=== PATIENT | female | born 1955 | race Caucasian/White ===

== ENCOUNTER 2016-11-30 10:43 | Observation (INO) | payer MEDICARE ==
[2016-11-30] MEDS ORDERED: SUBLIMAZE 100 MCG/2 ML IV ONE ×2 (11:07→11:44)
[2016-11-30] MEDS ORDERED: NITRO-BID 2% UD PACKETS TOP ONE (11:07)
[2016-11-30] MEDS ORDERED: Zestril 20 MG PO ONE (11:07)
[2016-11-30] MEDS ORDERED: ATARAX 25 MG PO ONE (11:08)
[2016-11-30 11:12] LABS: BASOPHIL % 0.6 % (0.0-0.4); Eosinophil % 3.5 % (0.00-5.0); Granulocytes % 59.2 % (36.0-66.0); Lymphocytes % 31.5 % (24.0-44.0); Mean Cell Volume 76.2 fl (78-100); Mean Platelet Volume 11.3 fl (6-9.5); Monocytes % 5.2 % (0.0-12.0); Platelet Count 278 K/mm3 (150-450); Red Blood Count 4.67 M/mm3 (4.1-5.4); Red Cell Distribution Width 18.4 % (11.5-14.0); White Blood Count 5.4 K/mm3 (4.0-10.5)
[2016-11-30] MEDS ORDERED: NITRO-BID 2% UD PACKETS ONE (11:12)
[2016-11-30] MEDS ORDERED: SUBLIMAZE 100 MCG/2 ML ONE ×2 (11:12→11:46)
[2016-11-30] MEDS ORDERED: ATARAX 25 MG ONE (11:12)
--- NOTE | 2016-11-30 11:17 | ERPHSYRPT ---
- History of Present Illness Time Seen by Provider: 11/30/16 10:45 Source: patient Patient Subjective Stated Complaint: PT STATES THAT HER BP HAS BEEN RUNNING HIGH OFF AND ON X 1 WEEK STATES THAT SHE HAS BEEN HAVING A "THROBBING HEADACHE" STATES SHE HAS ALSO BEEN HAVING SOME CHEST PAIN OFF AND ON FOR THE LAST COUPLE DAYS STATES THAT SEH ISN'T CURRENLTY HAVING THE CHEST PAIN OR SOB SHE JUST "HAS A THROBBING HEADAHE" STATES THATS HE HASN'T TAKEN HER BP TODAY STATES HER MACHINE IS OUT OF BATTERIES WAS SUPPOSE TO SEE DR RABAGO BUT HE HAD TO CANCEL DUE TO EMERGENCY. Triage Nursing Assessment: PT ALERT PINK WARM AND DRY RESP EASY NON LABORED PT AMBUALTED TO ROOM WITHOUT DIFFICULTY. PUPILS ROUND EQUAL AND REACTIVE. Physician History: CC: headache Hx: 61 y/o patient of Dr Rabago/[facility]. She has hx of CAD s/p CABG and HTN. She has been faithfully taking her medications. She reports high blood pressure up to 220/160. She took an extra BP pill. She has headache, throbbing in nature. She has chest tightness like prior heart disease. She had appt this AM which was cancelled by office so came to ER. She takes plavix. No fall or injury. ?UTI symptoms. She has had this headache for 2 weeks. ALL: NSAIDS, PCN Social: Smoker Severity: moderate Allergies/Adverse Reactions: ibuprofen Allergy (Verified 03/28/16 15:32) NSAIDS (Non-Steroidal Anti-Inflamma Allergy (Verified 03/28/16 15:32) Penicillins Allergy (Verified 03/28/16 15:32) Home Medications: Clopidogrel Bisulfate [Plavix] 75 mg PO DAILY 03/28/16 [History] Gabapentin 600 mg PO TID 03/28/16 [History] Hydralazine HCl 10 mg PO DAILY PRN PRN 03/28/16 [History] Lisinopril [Zestril] 20 mg PO DAILY 03/28/16 [History] Meclizine HCl 25 mg [Antivert 25 mg] 25 mg PO TIDPRN PRN 03/28/16 [History ] Metoprolol Succinate [Toprol Xl] 50 mg PO DAILY 03/28/16 [History] Oxycodone HCl 10 mg PO DAILY 03/28/16 [History] PANTOPRAZOLE 40 mg Tablet [Protonix 40MG Tablet] 40 mg PO DAILY 03/28/16 [ History] Tizanidine HCl 4 mg [Zanaflex 4 MG] 4 mg PO TID 03/28/16 [History] Atorvastatin Calcium 40 mg PO DAILY 03/29/16 [History] Gabapentin 300 mg PO TID 03/29/16 [History] Lorazepam 0.5 mg [Ativan 0.5 MG] 0.5 mg PO DAILY 03/29/16 [History] Oxycodone HCl [Oxycontin] 15 mg PO BID 11/30/16 [History] Hx Tetanus, Diphtheria Vaccination/Date Given: Yes Hx Influenza Vaccination/Date Given: Yes Hx Pneumococcal Vaccination/Date Given: Yes Immunizations Up to Date: Yes - Review of Systems Constitutional: Fatigue, Malaise, No Fever, No Chills Eyes: No Symptoms, No Vision Changes Ears, Nose, & Throat: No Symptoms Respiratory: No Cough, No Dyspnea Cardiac: Chest Pain (tightness) Abdominal/Gastrointestinal: No Abdominal Pain, No Nausea, No Vomiting Musculoskeletal: No Injury Skin: No Rash Neurological: Headache, No Focal Weakness, No Parasthesia All Other Systems: Reviewed and Negative - Past Medical History Pertinent Past Medical History: Yes Neurological History: Migraines, TIA ENT History: No Pertinent History Cardiac History: Angina, Coronary Artery Disease, High Cholesterol, Hypertension , Myocardial Infarction ([place]) Respiratory History: COPD Endocrine Medical History: Diabetes Type II Musculoskeletal History: Osteoarthritis, Osteoporosis GI Medical History: GERD Psycho-Social History: Anxiety - Past Surgical History Past Surgical History: Yes Cardiac: CABG, Cardiac Catheterization, Cardiac Stent Musculoskeletal: Joint Replacement, Orthopedic Surgery Female Surgical History: Hysterectomy Other Surgical History: Bilateral SHOULDERS, RIGHT KNEE, BACK - Social History Smoking Status: Current every day smoker How long have you smoked: 40 YEARS Exposure to second hand smoke: Yes Drug Use: none Patient Lives Alone: No - Female History Hx Last Menstrual Period: N/A - Nursing Vital Signs Nursing Vital Signs: Initial Vital Signs Temperature 98.6 F Temperature Source Oral Pulse Rate 76 Respiratory Rate 16 Blood Pressure [] 186/99 Pain Intensity 10 - Physical Exam General Appearance: alert Eye Exam: PERRL/EOMI Ears, Nose, Throat Exam: normal ENT inspection, moist mucous membranes Neck Exam: normal inspection, non-tender, supple Respiratory Exam: normal breath sounds, lungs clear, No respiratory distress Cardiovascular Exam: regular rate/rhythm, No murmur Gastrointestinal/Abdomen Exam: soft, No tenderness, No distention, No mass, No guarding Back Exam: normal inspection Extremity Exam: normal inspection, normal range of motion Neurologic Exam: alert, oriented x 3, cooperative, sensation nml, No motor deficits Skin Exam: warm, dry, No rash SpO2 Interpretation: normal SpO2: 98 Oxygen Delivery: Room Air - Course Nursing assessment & vital signs reviewed: Yes EKG Interpreted by Me: RATE (75), Sinus Rhythm, NORMAL AXIS, NORMAL INTERVALS ( QTc 443), Q-wave (inferior), Non-specific ST Changes - Radiology Exams cxr X-ray Interpretation: Discussed w/ radiologist, Negative - CT Exams head CT Interpretation: No/Intracranial Hemorrhag, Other (old lacunar stroke) Ordered Tests: Active Orders 24 hr Category Date Time Status Facility Maintenance Supervisor STAT Care 11/30/16 11:01 Active Cath for Specimen-Straight STAT Care 11/30/16 11:11 Active EKG-ER Only STAT Care 11/30/16 11:01 Active IV Insertion STAT Care 11/30/16 11:01 Active Pulse Oximetry (ED) STAT Care 11/30/16 11:01 Active CHEST 1 VIEW (PORTABLE) Stat Exams 11/30/16 11:01 Completed HEAD WITHOUT CONTRAST [CT] Stat Exams 11/30/16 11:08 Completed CBC W DIFF Stat Lab 11/30/16 11:00 Completed CMP Stat Lab 11/30/16 11:00 Completed CULTURE,URINE Stat Lab 11/30/16 11:11 Ordered PROTIME WITH INR Stat Lab 11/30/16 11:00 Completed PTT Stat Lab 11/30/16 11:00 Completed TROPONIN Q3H Lab 11/30/16 11:00 Completed TROPONIN Q3H Lab 11/30/16 11:15 Ordered TROPONIN Q3H Lab 11/30/16 14:15 Ordered TROPONIN Q3H Lab 11/30/16 17:15 Ordered TROPONIN Q3H Lab 11/30/16 20:15 Ordered UA Stat Lab 11/30/16 12:00 Completed Medication Summary Discontinued Medications Generic Name Dose Route Start Last Admin Trade Name Freq PRN Reason Stop Dose Admin Fentanyl Citrate 50 mcg 11/30/16 11:07 11/30/16 11:22 Sublimaze 100 Mcg/2 Ml IV 11/30/16 11:08 50 mcg STAT ONE Administration Fentanyl Citrate Confirm 11/30/16 11:12 Sublimaze 100 Mcg/2 Ml Administered 11/30/16 11:13 Dose 100 mcg .ROUTE .STK-MED ONE Fentanyl Citrate 50 mcg 11/30/16 11:44 11/30/16 11:48 Sublimaze 100 Mcg/2 Ml IV 11/30/16 11:45 50 mcg STAT ONE Administration Fentanyl Citrate Confirm 11/30/16 11:46 Sublimaze 100 Mcg/2 Ml Administered 11/30/16 11:47 Dose 100 mcg .ROUTE .STK-MED ONE Hydromorphone HCl 1 mg 11/30/16 12:22 11/30/16 12:35 Hydromorphone 1 Mg/Ml Ampule IV 11/30/16 12:23 1 mg STAT ONE Administration Hydromorphone HCl Confirm 11/30/16 12:33 Hydromorphone 1 Mg/Ml Ampule Administered 11/30/16 12:34 Dose 1 mg .ROUTE .STK-MED ONE Hydroxyzine HCl 50 mg 11/30/16 11:08 11/30/16 11:20 Atarax 25 Mg PO 11/30/16 11:09 50 mg STAT ONE Administration Hydroxyzine HCl Confirm 11/30/16 11:12 Atarax 25 Mg Administered 11/30/16 11:13 Dose 50 mg .ROUTE .STK-MED ONE Lisinopril 20 mg 11/30/16 11:07 11/30/16 11:20 Zestril 20 Mg PO 11/30/16 11:08 20 mg STAT ONE Administration Nitroglycerin 1 gm 11/30/16 11:07 11/30/16 11:21 Nitro-Bid 2% Ud Packets TOP 11/30/16 11:08 1 gm STAT ONE Administration Nitroglycerin Confirm 11/30/16 11:12 Nitro-Bid 2% Ud Packets Administered 11/30/16 11:13 Dose 1 gm .ROUTE .STK-MED ONE Lab/Rad Data: Laboratory Result Diagrams 11/30/16 11:00 11/30/16 11:00 Laboratory Results 11/30/16 11/30/16 11/30/16 Range/Units 12:00 11:00 11:00 WBC (4.0-10.5) K/mm3 RBC (4.1-5.4) M/mm3 Hgb (12.0-16.0) gm/dl Hct (35-47) % MCV (78-100) fl MCH (26-32) pg MCHC (32-36) g/dl RDW (11.5-14.0) % Plt Count (150-450) K/mm3 MPV (6-9.5) fl Gran % (36.0-66.0) % Lymphocytes % (24.0-44.0) % Monocytes % (0.0-12.0) % Eosinophils % (0.00-5.0) % Basophils % (0.0-0.4) % Basophils # (0-0.4) INR 1.07 (0.8-3.0) PTT 30.1 (25.3-37.0) SECONDS Sodium (136-145) mEq/L Potassium (3.5-5.1) mEq/L Chloride (98-107) mEq/L Carbon Dioxide (21-32) mEq/L Anion Gap (5-15) MEQ/L BUN (9-20) mg/dL Creatinine (0.55-1.30) mg/dl Estimated GFR ML/MIN Glucose (70-110) MG/DL Calcium (8.5-10.1) mg/dL Total Bilirubin (0.2-1.0) mg/dL AST (15-37) U/L ALT (12-78) U/L Alkaline Phosphatase (46-116) U/L Troponin I < 0.017 (0.000-0.056) ng/ml Serum Total Protein (6.4-8.2) gm/dL Albumin (3.4-5.0) g/dL Ur Collection Type CATH Urine Color YELLOW (YELLOW) Urine Appearance CLEAR (CLEAR) Urine pH 6.0 (5-6) Ur Specific [place] 1.010 (1.005-1.025) Urine Protein NEGATIVE (Negative) Urine Glucose (UA) NEGATIVE (NEGATIVE) mg/dL Urine Ketones NEGATIVE (NEGATIVE) Urine Nitrite NEGATIVE (NEGATIVE) Urine Bilirubin NEGATIVE (NEGATIVE) Urine Urobilinogen 0.2 (0-1) mg/dL Urine WBC (Auto) NEGATIVE (NEGATIVE) Urine RBC (Auto) NEGATIVE (0-5) Camron/ul Specimen Received 11-30-16 1211 11/30/16 11/30/16 Range/Units 11:00 11:00 WBC 5.4 (4.0-10.5) K/mm3 RBC 4.67 (4.1-5.4) M/mm3 Hgb 10.4 L (12.0-16.0) gm/dl Hct 35.6 (35-47) % MCV 76.2 L (78-100) fl MCH 22.2 L (26-32) pg MCHC 29.2 L (32-36) g/dl RDW 18.4 H (11.5-14.0) % Plt Count 278 (150-450) K/mm3 MPV 11.3 H (6-9.5) fl Gran % 59.2 (36.0-66.0) % Lymphocytes % 31.5 (24.0-44.0) % Monocytes % 5.2 (0.0-12.0) % Eosinophils % 3.5 (0.00-5.0) % Basophils % 0.6 (0.0-0.4) % Basophils # 0.03 (0-0.4) INR (0.8-3.0) PTT (25.3-37.0) SECONDS Sodium 142 (136-145) mEq/L Potassium 4.1 (3.5-5.1) mEq/L Chloride 104 (98-107) mEq/L Carbon Dioxide 27.0 (21-32) mEq/L Anion Gap 15.1 H (5-15) MEQ/L BUN 12 (9-20) mg/dL Creatinine 1.12 (0.55-1.30) mg/dl Estimated GFR 52 ML/MIN Glucose 133 H (70-110) MG/DL Calcium 8.7 (8.5-10.1) mg/dL Total Bilirubin 0.3 (0.2-1.0) mg/dL AST 20 (15-37) U/L ALT 19 (12-78) U/L Alkaline Phosphatase 121 H (46-116) U/L Troponin I (0.000-0.056) ng/ml Serum Total Protein 7.8 (6.4-8.2) gm/dL Albumin 3.3 L (3.4-5.0) g/dL Ur Collection Type Urine Color (YELLOW) Urine Appearance (CLEAR) Urine pH (5-6) Ur Specific [place] (1.005-1.025) Urine Protein (Negative) Urine Glucose (UA) (NEGATIVE) mg/dL Urine Ketones (NEGATIVE) Urine Nitrite (NEGATIVE) Urine Bilirubin (NEGATIVE) Urine Urobilinogen (0-1) mg/dL Urine WBC (Auto) (NEGATIVE) Urine RBC (Auto) (0-5) Camron/ul Specimen Received - Progress Progress Note: 11/30/16 13:06 Pt has worsened headache but improved chest tightness. ASA deferred due to elevated BP. She was given 3 doses opioid, hydroxyzine, lisinopril and NTG paste with some improvement in BP. Called Dr Rabago who will place in tele observation and check serial troponins, neuro checks, and regulate her antihypertensive medication regimen. Discussed with : Jadon Will see patient in: hospital (observation) Counseled pt/family regarding: lab results, diagnosis, need for follow-up, rad results - Departure Time of Disposition: 13:07 Departure Disposition: Observation Clinical Impression: Hypertensive urgency, Chest pain, rule out acute myocardial infarction Condition: Fair Critical Care Time: Yes Critical Care Time(excluding separately billable procedures): 30-74 minutes Referrals: JOON RABAGO MD [Primary Care Provider] -
[2016-11-30 11:20] LABS: Mean Corpuscular Hemoglobin 22.2 pg (26-32)
--- NOTE | 2016-11-30 11:23 | XRAY ---
Indication: Chest pain. Hypertension. Comparison: March 28, 2016. Portable chest remains clear. Heart and mediastinal structures within normal limits. Bony thorax intact again with osteopenia, bilateral shoulder arthroplasty, and sternotomy wires. Impression: Stable nonacute chest with chronic features.
[2016-11-30 11:24] LABS: INR 1.07 (0.8-3.0)
[2016-11-30 11:26] LABS: PTT 30.1 SECONDS (25.3-37.0)
[2016-11-30 11:31] LABS: ALBUMIN 3.3 g/dL (3.4-5.0); ANION GAP 15.1 MEQ/L (5-15); BILIRUBIN,TOTAL 0.3 mg/dL (0.2-1.0); Potassium 4.1 mEq/L (3.5-5.1); Total Protein 7.8 gm/dL (6.4-8.2)
--- NOTE | 2016-11-30 11:58 | XRAY ---
Indication: Headache and hypertension. Multiple contiguous axial images obtained through the head without contrast. Comparison: January 25, 2015 Stable age-appropriate global atrophy, minimal periventricular degenerative micro-ischemia, and remote appearing lacunar infarct of the left caudate head. No acute intracranial hemorrhage, abnormal extra-axial fluid collection, or mass effect. Fourth ventricle is midline without hydrocephalus. [place]-white matter differentiation maintained. Bony calvarium intact. Visualized paranasal sinuses and mastoid air cells are pneumatized and clear. Impression: Stable remote left caudate lacunar infarct and degenerative micro-ischemia. No new/acute intracranial abnormalities. CTDI is 70.21
[2016-11-30 12:13] LABS: COMPLETE URINE MICROSCOPIC? NO; Collection Type CATH
[2016-11-30] MEDS ORDERED: Hydromorphone 1 mg/ml Ampule IV ONE (12:22)
[2016-11-30] MEDS ORDERED: Hydromorphone 1 mg/ml Ampule ONE (12:33)
[2016-11-30] MEDS ORDERED: NovoLOG Insulin SQ PRN (13:52)
--- NOTE | 2016-11-30 15:24 | PCM.HP ---
History of Present Illness - Chief Complaint Chief Complaint: hypertensive urgency History of Present Illness: is a 61 year old female who reported to the ER today complaining of a 1 week history of headache and elevated blood pressure. She also had some pressure in her chest today. She currently only complains of throbbing headache , no visual changes, no numbness, tingling, weakness or paresthesias. - Review of Systems Constitutional: No Fever, No Chills Respiratory: No Cough, No Short Of Breath Cardiac: Chest Pain Abdominal/Gastrointestinal: No Abdominal Pain, No Nausea, No Vomiting, No Diarrhea Skin: No Rash Medications & Allergies Home Medications: Home Medication List Clopidogrel Bisulfate [Plavix] 75 mg PO DAILY 03/28/16 [History Confirmed ] Gabapentin 600 mg PO TID 03/28/16 [History Confirmed 03/28/16] Hydralazine HCl 10 mg PO DAILY PRN PRN 03/28/16 [History Confirmed 03/28/16] Lisinopril [Zestril] 20 mg PO DAILY 03/28/16 [History Confirmed 03/29/16] Meclizine HCl 25 mg [Antivert 25 mg] 25 mg PO TIDPRN PRN 03/28/16 [ History Confirmed 03/28/16] Metoprolol Succinate [Toprol Xl] 50 mg PO DAILY 03/28/16 [History Confirmed 05/06] Oxycodone HCl 10 mg PO DAILY 03/28/16 [History Confirmed 03/28/16] PANTOPRAZOLE 40 mg Tablet [Protonix 40MG Tablet] 40 mg PO DAILY 03/28/16 [ History Confirmed 03/28/16] Tizanidine HCl 4 mg [Zanaflex 4 MG] 4 mg PO TID 03/28/16 [History Confirmed 03/28/16] Atorvastatin Calcium 40 mg PO DAILY 03/29/16 [History Confirmed 03/29/16] Gabapentin 300 mg PO TID 03/29/16 [History Confirmed 03/29/16] Lorazepam 0.5 mg [Ativan 0.5 MG] 0.5 mg PO DAILY 03/29/16 [History Confirmed 03/29/16] Oxycodone HCl [Oxycontin] 15 mg PO BID 11/30/16 [History Confirmed 11/30/16] Allergies/Adverse Reactions: Allergies Allergy/AdvReac Type Severity Reaction Status Date / Time ibuprofen Allergy Verified 03/28/16 15:32 NSAIDS (Non-Steroidal Allergy Verified 03/28/16 15:32 Anti-Inflamma Penicillins Allergy Verified 03/28/16 15:32 - Past Medical History Past Medical History: Yes Neurological History: Migraines, TIA ENT History: No Pertinent History Cardiac History: Angina, Coronary Artery Disease, High Cholesterol, Hypertension , Myocardial Infarction ([place]) Respiratory History: COPD Endocrine Medical History: Diabetes Type II Musculoskelatal History: Osteoarthritis, Osteoporosis GI Medical History: Cirrhosis, GERD, Hemorrhoids, Hepatitis, Ulcer History: Other Pyscho-Social History: Anxiety Reproductive Disorders: No Pertinent History Comment: hx kidney infection - Female History Hx Last Menstrual Period: N/A Are you now?: No - Past Surgical History Past Surgical History: Yes Cardiac History: CABG, Cardiac Catheterization, Cardiac Stent Respiratory Surgery: No Pertinent History GI Surgical History: Appendectomy, Cholecystectomy Genitourinary Surgical Hx: No Pertinent History Musculskeletal Surgical Hx: Joint Replacement, Orthopedic Surgery Female Surgical History: Hysterectomy Other Surgical History: Bilateral SHOULDERS, RIGHT KNEE, BACK - Social History Smoking Status: Current every day smoker How long have you smoked: 40 YEARS Exposure to second hand smoke: Yes Alcohol: None Drug Use: none - Physical Exam Vital Signs: Vital Signs - 24 hr Temp Pulse Resp BP Pulse Ox 11/30/16 13:52 98 F 75 20 185/82 96 11/30/16 13:19 75 18 180/88 11/30/16 13:10 80 164/102 11/30/16 13:08 98 11/30/16 13:05 75 16 170/94 97 11/30/16 12:57 79 18 168/87 11/30/16 12:35 78 18 189/97 11/30/16 12:25 98.6 F 76 16 186/99 96 11/30/16 12:04 81 16 169/87 98 11/30/16 11:44 76 16 189/97 97 11/30/16 11:43 80 18 201/119 100 11/30/16 11:04 98 11/30/16 10:47 97.8 F 78 18 201/119 99 General Appearance: no apparent distress, alert Neurologic Exam: alert, oriented x 3, cooperative, normal mood/affect, nml cerebellar function, nml station & gait, sensation nml, No motor deficits Respiratory Exam: normal breath sounds, lungs clear, No respiratory distress Cardiovascular Exam: regular rate/rhythm, normal heart sounds, normal peripheral pulses Gastrointestinal/Abdomen Exam: soft, normal bowel sounds, No tenderness, No mass Extremity Exam: normal inspection, normal range of motion, pelvis stable Skin Exam: normal color, warm, dry, No rash Results - Labs Lab/Micro Results: Lab Results-Last 24 Hours 11/30/16 Range/Units 14:40 Troponin I < 0.017 (0.000-0.056) ng/ml Assessment/Plan (1) Hypertensive urgency Current Visit: Yes Status: Acute Assessment & Plan: meds as ordered, will make hydralazine 10mg tid and lisinopril increase from 20mg daily to twice daily Code(s): I16.0 - HYPERTENSIVE URGENCY (2) Chest pain, rule out acute myocardial infarction Current Visit: Yes Status: Acute Assessment & Plan: likely secondary to hypertensive urgency Code(s): R07.9 - CHEST PAIN, UNSPECIFIED (3) Headache Current Visit: Yes Status: Acute Assessment & Plan: related to hypertension, will treat with dilaudid prn, oxycontin home dosage to be continued Code(s): R51 - HEADACHE
[2016-11-30] MEDS ORDERED: Zanaflex 4 MG PO PRN (15:42)
[2016-11-30] MEDS ORDERED: NON-FORMULARY ITEM (Hydralazine Hcl [Hydralazine Hcl] 10 MG) PO PRN (15:42)
[2016-11-30] MEDS: DILAUDID 2 MG INJECTION IV PRN ×2 (15:47→20:04)
[2016-11-30] MEDS ORDERED: Zofran 4 MG/2 ML VIAL IV PRN (16:24)
[2016-11-30] MEDS: Apresoline 25 MG TABLET PO SCH ×2 (16:45→21:12)
[2016-11-30] MEDS: NEURONTIN 300 MG PO SCH ×2 (19:00→23:34)
[2016-11-30] MEDS: Zestril 20 MG PO SCH (21:15)
[2016-11-30] MEDS: OXYCONTIN 10 MG PO SCH (21:15)
[2016-11-30] MEDS ORDERED: OXYCODONE HCL 15 MG PO SCH (22:00)
[2016-11-30] MEDS ORDERED: Ativan 0.5 MG PO SCH (22:00)
[2016-11-30] MEDS ORDERED: NICODERM CQ 14 MG TOP SCH (22:00)
[2016-12-01] MEDS: DILAUDID 2 MG INJECTION IV PRN ×2 (03:58→08:59)
[2016-12-01 05:42] LABS: Mean Cell Volume 76.9 fl (78-100); Mean Platelet Volume 11.9 fl (6-9.5); Platelet Count 248 K/mm3 (150-450); Red Blood Count 4.54 M/mm3 (4.1-5.4); Red Cell Distribution Width 18.4 % (11.5-14.0); White Blood Count 5.1 K/mm3 (4.0-10.5)
[2016-12-01 05:46] LABS: ANION GAP 9.4 MEQ/L (5-15); BILIRUBIN,TOTAL 0.3 mg/dL (0.2-1.0); Carbon Dioxide 29.1 mEq/L (21-32); MAGNESIUM 1.9 mg/dL (1.8-2.4); Potassium 4.4 mEq/L (3.5-5.1); Total Protein 7.2 gm/dL (6.4-8.2)
[2016-12-01 05:53] LABS: Mean Corpuscular Hemoglobin 22.4 pg (26-32)
[2016-12-01] MEDS ORDERED: Sodium Chloride 0.9% 10 ML FLUSH Syringe IV SCH (06:00)
--- NOTE | 2016-12-01 08:36 | PCM.DS ---
Discharge Summary Date of Admission: 11/30/16 13:44 Admitting Physician: JOON RABAGO Primary Care Provider: JOON RABAGO Allergies Allergies ibuprofen Allergy (Verified 03/28/16 15:32) NSAIDS (Non-Steroidal Anti-Inflamma Allergy (Verified 03/28/16 15:32) Penicillins Allergy (Verified 03/28/16 15:32) Hospital Summary - Hospital Course Hospital Course: patient is doing quite well, bp has improved with intervention. headache is much better. overall she is ready to go home, no chest pain today. tolerating po - Vitals & Intake/Output Vital Signs: Vital Signs Temperature 98.7 F 12/01/16 07:38 Pulse Rate 77 12/01/16 07:38 Respiratory Rate 20 12/01/16 07:38 Blood Pressure 128/64 12/01/16 07:38 O2 Sat by Pulse Oximetry 98 12/01/16 07:38 Intake & Output: Intake & Output 11/28/16 11/29/16 11/30/16 12/01/16 11:59 11:59 11:59 11:59 Intake Total 1460 Output Total 475 Balance 985 Weight 89.131 kg - Lab Result Diagrams: 12/01/16 05:06 12/01/16 05:06 Lab Results-Last 24 Hrs: Accuchecks Date 11/30/16 Time 16:30 Accucheck Value: 96 Accucheck Value: 119 Lab Results-Last 24 Hours 11/30/16 11/30/16 11/30/16 Range/Units 14:17 14:40 17:35 WBC (4.0-10.5) K/mm3 RBC (4.1-5.4) M/mm3 Hgb (12.0-16.0) gm/dl Hct (35-47) % MCV (78-100) fl MCH (26-32) pg MCHC (32-36) g/dl RDW (11.5-14.0) % Plt Count (150-450) K/mm3 MPV (6-9.5) fl Sodium (136-145) mEq/L Potassium (3.5-5.1) mEq/L Chloride (98-107) mEq/L Carbon Dioxide (21-32) mEq/L Anion Gap (5-15) MEQ/L BUN (9-20) mg/dL Creatinine (0.55-1.30) mg/dl Estimated GFR ML/MIN Glucose (70-110) MG/DL Hemoglobin A1c 6.1 (4.5-6.2) Calcium (8.5-10.1) mg/dL Magnesium (1.8-2.4) mg/dL Total Bilirubin (0.2-1.0) mg/dL AST (15-37) U/L ALT (12-78) U/L Alkaline Phosphatase (46-116) U/L Troponin I < 0.017 < 0.017 (0.000-0.056) ng/ml Serum Total Protein (6.4-8.2) gm/dL Albumin (3.4-5.0) g/dL 11/30/16 12/01/16 12/01/16 Range/Units 20:25 05:06 05:06 WBC 5.1 (4.0-10.5) K/mm3 RBC 4.54 (4.1-5.4) M/mm3 Hgb 10.2 L (12.0-16.0) gm/dl Hct 34.9 L (35-47) % MCV 76.9 L (78-100) fl MCH 22.4 L (26-32) pg MCHC 29.2 L (32-36) g/dl RDW 18.4 H (11.5-14.0) % Plt Count 248 (150-450) K/mm3 MPV 11.9 H (6-9.5) fl Sodium 138 (136-145) mEq/L Potassium 4.4 (3.5-5.1) mEq/L Chloride 104 (98-107) mEq/L Carbon Dioxide 29.1 (21-32) mEq/L Anion Gap 9.4 (5-15) MEQ/L BUN 14 (9-20) mg/dL Creatinine 1.13 (0.55-1.30) mg/dl Estimated GFR 52 ML/MIN Glucose 90 (70-110) MG/DL Hemoglobin A1c (4.5-6.2) Calcium 8.9 (8.5-10.1) mg/dL Magnesium 1.9 (1.8-2.4) mg/dL Total Bilirubin 0.3 (0.2-1.0) mg/dL AST 18 (15-37) U/L ALT 15 (12-78) U/L Alkaline Phosphatase 110 (46-116) U/L Troponin I < 0.017 (0.000-0.056) ng/ml Serum Total Protein 7.2 (6.4-8.2) gm/dL Albumin 3.0 L (3.4-5.0) g/dL Micro Results-Entire Visit: Accuchecks Date 11/30/16 Time 16:30 Accucheck Value: 96 Accucheck Value: 119 - Procedures and Test Procedures and Tests throughout Hospitalization: Therapy Orders & Screens 12/01/16 05:12 Oxygen NASAL CANNULA 2 lpm Comment: Diagnosis: Hypertensive Crisis; Chest pain Discharge Exam General Appearance: no apparent distress, alert Respiratory Exam: normal breath sounds, lungs clear, No respiratory distress Cardiovascular Exam: regular rate/rhythm, normal heart sounds Gastrointestinal/Abdomen Exam: soft, No tenderness, No mass Extremity Exam: normal inspection, normal range of motion Final Diagnosis/Problem List - Final Discharge Diagnosis/Problem (1) Hypertensive urgency Current Visit: Yes Status: Acute (2) Chest pain, rule out acute myocardial infarction Current Visit: Yes Status: Acute (3) Headache Current Visit: Yes Status: Acute - Discharge Disposition: Home, Self-Care Condition: Good Prescriptions: New Lisinopril 20 mg [Zestril 20 MG] 20 mg PO BID #60 tablet Continue Meclizine HCl 25 mg [Antivert 25 mg] 25 mg PO TIDPRN PRN PRN Reason: Dizziness Clopidogrel Bisulfate [Plavix] 75 mg PO DAILY Metoprolol Succinate [Toprol Xl] 50 mg PO DAILY PANTOPRAZOLE 40 mg Tablet [Protonix 40MG Tablet] 40 mg PO DAILY Gabapentin 600 mg PO TID Tizanidine HCl 4 mg [Zanaflex 4 MG] 4 mg PO TIDPRN PRN PRN Reason: Pain Oxycodone HCl 10 mg PO DAILY PRN PRN PRN Reason: Pain Atorvastatin Calcium 40 mg PO DAILY Lorazepam 0.5 mg [Ativan 0.5 MG] 0.5 mg PO HS Gabapentin 300 mg PO TID Oxycodone HCl [Oxycontin] 15 mg PO BID Changed Hydralazine HCl 10 mg PO TID #90 tablet Discontinued Lisinopril [Zestril] 20 mg PO DAILY Follow up with: JOON RABAGO MD [Primary Care Provider] -
[2016-12-01] MEDS: Zestril 20 MG PO SCH (09:00)
[2016-12-01] MEDS: Apresoline 25 MG TABLET PO SCH (09:00)
[2016-12-01] MEDS: NEURONTIN 300 MG PO SCH (09:00)
[2016-12-01] MEDS: OXYCONTIN 10 MG PO SCH (09:01)
[2016-12-01] MEDS ORDERED: PNEUMOVAX 23 IM ONE (10:00)
[2016-12-01] MEDS ORDERED: LISINOPRIL 20 MG PO SCH (10:00)
[2016-12-01] MEDS ORDERED: PLAVIX 75 MG Tablet PO SCH (10:00)
[2016-12-01] MEDS ORDERED: LIPITOR 40MG PO SCH (10:00)
[2016-12-01] MEDS ORDERED: Protonix 40MG Tablet PO SCH (10:00)
[2016-12-01] MEDS ORDERED: Toprol Xl 50 MG PO SCH (10:00)
[2016-12-01 10:20] VITALS: BP 122/59; PULSE 72; O2SAT 92
[2016-12-01] MEDS ORDERED: ZOCOR 20MG PO SCH (22:00)
== END 2016-12-01 10:10 | disposition home or self-care (01) ==
LOC: ED 10:43 → MED SURG 13:44
PROVIDERS: ADMIT Family Medicine; ATTEND Family Medicine
DX: I16.0 Hypertensive urgency (principal); R07.9 Chest pain, unspecified; R51 Headache; Z79.899 Other long term (current) drug therapy; Z86.73 Personal history of transient ischemic attack (TIA), and cerebral infarction without residual deficits; I25.810 Atherosclerosis of coronary artery bypass graft(s) without angina pectoris; I25.2 Old myocardial infarction; J44.9 Chronic obstructive pulmonary disease, unspecified; E11.9 Type 2 diabetes mellitus without complications; Z23 Encounter for immunization; M19.90 Unspecified osteoarthritis, unspecified site; M81.0 Age-related osteoporosis without current pathological fracture; K21.9 Gastro-esophageal reflux disease without esophagitis; F41.9 Anxiety disorder, unspecified
CPT/HCPCS: 82962; 93268 ×2; 93041; 96374; 99285; 36000; 96360; 96361; 96375; 96376; 93005; 81002; 85610; 85730; 36415 ×2; 83036; 83735; 85027; 85025; 80053 ×2; 84484; 87086; 71010; 70450; 94760; A9270 ×14; P9612; 90732; 99284; G0009; G0378; J1170; J2405; J3010

== ENCOUNTER 2017-01-19 00:27 | Emergency (ER) | payer MEDICARE ==
[2017-01-19] MEDS ORDERED: Hydromorphone 1 mg/ml Ampule IM ONE (01:59)
[2017-01-19] MEDS ORDERED: Phenergan 25 MG INJ IM ONE (01:59)
[2017-01-19] MEDS ORDERED: Phenergan 25 MG INJ ONE (02:07)
--- NOTE | 2017-01-19 02:07 | ERPHSYRPT ---
- History of Present Illness Time Seen by Provider: 01/19/17 01:53 Source: patient Exam Limitations: no limitations Patient Subjective Stated Complaint: pt states she was sitting on the couch laying on her side and started having excruciating pain in her rt shoulder. Triage Nursing Assessment: pt alert and oriented, answers questions approp. Physician History: ABOUT 3 HOURS AGO AT HOME PT WAS LYING ON HER RIGHT SIDE AND SUDDENLY STARTED WITH SEVERE RIGHT SHOULDER PAIN WORSE WITH MOVEMENT; DENIES RECENT TRAUMA; DENIES NUMBNESS OF THE RIGHT HAND. Allergies/Adverse Reactions: ibuprofen Allergy (Verified 01/19/17 01:23) NSAIDS (Non-Steroidal Anti-Inflamma Allergy (Verified 01/19/17 01:23) Penicillins Allergy (Verified 01/19/17 01:23) Home Medications: Clopidogrel Bisulfate [Plavix] 75 mg PO DAILY 03/28/16 [History] Gabapentin 600 mg PO TID 03/28/16 [History] Meclizine HCl 25 mg [Antivert 25 mg] 25 mg PO TIDPRN PRN 03/28/16 [History ] Metoprolol Succinate [Toprol Xl] 50 mg PO DAILY 03/28/16 [History] Oxycodone HCl 10 mg PO DAILY PRN PRN 03/28/16 [History] PANTOPRAZOLE 40 mg Tablet [Protonix 40MG Tablet] 40 mg PO DAILY 03/28/16 [ History] Tizanidine HCl 4 mg [Zanaflex 4 MG] 4 mg PO TIDPRN PRN 03/28/16 [History] Atorvastatin Calcium 40 mg PO DAILY 03/29/16 [History] Gabapentin 300 mg PO TID 03/29/16 [History] Lorazepam 0.5 mg [Ativan 0.5 MG] 0.5 mg PO HS 03/29/16 [History] Oxycodone HCl [Oxycontin] 15 mg PO BID 11/30/16 [History] Hx Tetanus, Diphtheria Vaccination/Date Given: Yes Hx Influenza Vaccination/Date Given: Yes Hx Pneumococcal Vaccination/Date Given: Yes Immunizations Up to Date: Yes - Review of Systems Respiratory: No Dyspnea Cardiac: No Chest Pain Abdominal/Gastrointestinal: No Nausea, No Vomiting Musculoskeletal: Joint Pain (RIGHT SHOULDER PAIN) Endocrine: No Excessive Sweating - Past Medical History Pertinent Past Medical History: Yes Neurological History: Migraines, TIA ENT History: No Pertinent History Cardiac History: Angina, Coronary Artery Disease, High Cholesterol, Hypertension , Myocardial Infarction ([place]) Respiratory History: COPD Endocrine Medical History: Diabetes Type II Musculoskeletal History: Osteoarthritis, Osteoporosis GI Medical History: Cirrhosis, GERD, Hemorrhoids, Hepatitis, Ulcer History: Other Psycho-Social History: Anxiety Female Reproductive Disorders: No Pertinent History Other Medical History: hx kidney infection - Past Surgical History Past Surgical History: Yes Cardiac: CABG, Cardiac Catheterization, Cardiac Stent Respiratory: No Pertinent History Gastrointestinal: Appendectomy, Cholecystectomy Genitourinary: No Pertinent History Musculoskeletal: Joint Replacement, Orthopedic Surgery Female Surgical History: Hysterectomy Other Surgical History: Bilateral SHOULDERS, RIGHT KNEE, BACK - Social History Smoking Status: Current every day smoker How long have you smoked: 50 Exposure to second hand smoke: Yes Drug Use: none Patient Lives Alone: No - Female History Hx Last Menstrual Period: post - Nursing Vital Signs Nursing Vital Signs: Initial Vital Signs Temperature 97.7 F Pulse Rate 64 Respiratory Rate 18 Blood Pressure [Left Arm] 101/59 Pain Intensity 2 - Physical Exam General Appearance: alert Shoulder Exam: limited ROM (VERY LIMITED ROM OF RIGHT SHOULDER), No soft tissue tenderness Elbow/Forearm Exam: normal ROM Wrist Exam: normal ROM Hand Exam: normal ROM Neuro/Tendon Exam: normal sensation Mental Status Exam: alert, cooperative Skin Exam: warm, dry SpO2 Interpretation: normal SpO2: 97 Oxygen Delivery: Room Air - Course Nursing assessment & vital signs reviewed: Yes - Radiology Exams Right Shoulder X-ray Interpretation: Teleradiologist Report (HUMERAL HEAD ARTHROPLASTY CHANGES SEEN IN PLACE WITHOUT FRACTURE OR DISLOCATION.) Ordered Tests: Active Orders 24 hr Category Date Time Status Sling Application STAT Care 01/19/17 02:01 Active SHOULDER Stat Exams 01/19/17 02:01 Taken Medication Summary Discontinued Medications Generic Name Dose Route Start Last Admin Trade Name Freq PRN Reason Stop Dose Admin Hydromorphone HCl 2 mg 01/19/17 01:59 01/19/17 02:13 Hydromorphone 1 Mg/Ml Ampule IM 01/19/17 02:00 2 mg STAT ONE Administration Hydromorphone HCl Confirm 01/19/17 02:08 Hydromorphone 1 Mg/Ml Ampule Administered 01/19/17 02:09 Dose 2 mg .ROUTE .STK-MED ONE Promethazine HCl 25 mg 01/19/17 01:59 01/19/17 02:13 Phenergan 25 Mg Inj IM 01/19/17 02:00 25 mg STAT ONE Administration Promethazine HCl Confirm 01/19/17 02:07 Phenergan 25 Mg Inj Administered 01/19/17 02:08 Dose 25 mg .ROUTE .STK-MED ONE - Departure Time of Disposition: 03:48 Departure Disposition: Home Clinical Impression: BURSITIS OF RIGHT SHOULDER Condition: Fair Critical Care Time: No Instructions: Bursitis Additional Instructions: FOLLOW UP WITH PRIVATE DOCTOR TOMORROW. WEAR RIGHT ARM SLING FOR COMFORT.
[2017-01-19] MEDS ORDERED: Hydromorphone 1 mg/ml Ampule ONE (02:08)
[2017-01-19 02:46] VITALS: BP 101/59
[2017-01-19 03:57] VITALS: PULSE 70; O2SAT 98
--- NOTE | 2017-01-19 10:00 | XRAY ---
Indication: Pain. No known injury. Comparison: July 15, 2009. 3 views of the right shoulder demonstrates interval arthroplasty with new intact humeral head prosthesis. Stable mild osteopenia and mild AC degenerative arthropathy. New humeral neck osteophyte. No other bony, articular, or soft tissue abnormalities. Comment: Preliminary interpretation was made by [facility]. Osteophyte and AC degenerative changes not reported and are incidental finding.
== END 2017-01-19 03:56 | disposition home or self-care (01) ==
LOC: ED 00:27
DX: M75.51 Bursitis of right shoulder (principal); M25.511 Pain in right shoulder
CPT/HCPCS: 73030; 96372; 99284; J1170; J2550

== ENCOUNTER 2017-04-09 23:41 | Inpatient (IN) | payer MEDICARE ==
[2017-04-09] MEDS ORDERED: APRESOLINE 20 MG/ML INJ IV ONE (23:53)
[2017-04-10] LABS: BASOPHIL % 0.5 % (0.0-0.4); Eosinophil % 4.5 % (0.00-5.0); Granulocytes % 61.4 % (36.0-66.0); Mean Cell Volume 75.7 fl (78-100); Mean Platelet Volume 11.8 fl (6-9.5); Monocytes % 6.6 % (0.0-12.0); Platelet Count 251 K/mm3 (150-450); Red Blood Count 4.77 M/mm3 (4.1-5.4)
[2017-04-10] MEDS ORDERED: Zofran 4 MG/2 ML VIAL IV ONE (00:10)
[2017-04-10] MEDS ORDERED: APRESOLINE 20 MG/ML INJ IV ONE (00:10)
[2017-04-10 00:12] LABS: ANION GAP 12.5 MEQ/L (5-15); Carbon Dioxide 25.1 mEq/L (21-32); Potassium 4.2 mEq/L (3.5-5.1)
[2017-04-10] MEDS ORDERED: APRESOLINE 20 MG/ML INJ ONE (00:13)
[2017-04-10] MEDS ORDERED: Zofran 4 MG/2 ML VIAL ONE (00:13)
[2017-04-10] MEDS ORDERED: SUBLIMAZE 100 MCG/2 ML IV ONE (00:20)
[2017-04-10] MEDS: Sodium Chloride 0.9% 1000 ML 1,000 ML IV SCH ×2 (00:23→17:51)
[2017-04-10] MEDS ORDERED: SUBLIMAZE 100 MCG/2 ML ONE (00:25)
--- NOTE | 2017-04-10 00:35 | ERPHSYRPT ---
- History of Present Illness Time Seen by Provider: 04/09/17 23:49 Source: patient Exam Limitations: clinical condition Patient Subjective Stated Complaint: PT REPORTS HTN FOR GENEVA 3 DAYS-STATES HER BP AT HOME HAS BEEN 210/180-STATES THAT SHE HAS A HEADACHE-VISUAL CHANGES- DENIES NUMBNESS OR TINLGING-REPORTS NAUSEA BUT DENIES VOMITING Triage Nursing Assessment: PT PINK WARM ET [id number] ALL EXTREMITIES WITH EASE-RESP NONLABORED-PUPILS REACTIVE Physician History: PATIENT WITH A HISTORY OF LABILE HYPERTENSION, HAS BEEN TAKEN OFF ALL BLOOD PRESSURE MEDICATIOINS INCLUDING TOPROL, HYDRALAZINE AND LISINIPRIL 4 WEEKS AGO. NOW HAS BEEN HAVING ELEVATED BLOOD PRESSURE SYSTOLIC 205, ASSOCIATED WITH SEVERE HEADACHE. DENIES DYSPNEA, CHEST PAIN OR DYSPNEA. Timing/Duration: today Activities at Onset: none Quality: throbbing Severity of Pain-Max: moderate Severity of Pain-Current: moderate Nitro Today/Relief: no nitro taken today Aspirin Treatment Today: no aspirin today Associated Symptoms: headaches Prior Chest Pain/Cardiac Workup: no prior chest pain Allergies/Adverse Reactions: ibuprofen Allergy (Verified 04/09/17 23:47) NSAIDS (Non-Steroidal Anti-Inflamma Allergy (Verified 04/09/17 23:47) Penicillins Allergy (Verified 04/09/17 23:47) Home Medications: Clopidogrel Bisulfate [Plavix] 75 mg PO DAILY 03/28/16 [History] Gabapentin 600 mg PO TID 03/28/16 [History] Meclizine HCl 25 mg [Antivert 25 mg] 25 mg PO TIDPRN PRN 03/28/16 [History ] Metoprolol Succinate [Toprol Xl] 50 mg PO DAILY 03/28/16 [History] Oxycodone HCl 10 mg PO DAILY PRN PRN 03/28/16 [History] PANTOPRAZOLE 40 mg Tablet [Protonix 40MG Tablet] 40 mg PO DAILY 03/28/16 [ History] Tizanidine HCl 4 mg [Zanaflex 4 MG] 4 mg PO TIDPRN PRN 03/28/16 [History] Atorvastatin Calcium 40 mg PO DAILY 03/29/16 [History] Gabapentin 300 mg PO TID 03/29/16 [History] Lorazepam 0.5 mg [Ativan 0.5 MG] 0.5 mg PO HS 03/29/16 [History] Oxycodone HCl [Oxycontin] 15 mg PO BID 11/30/16 [History] Hx Tetanus, Diphtheria Vaccination/Date Given: Yes Hx Influenza Vaccination/Date Given: Yes Hx Pneumococcal Vaccination/Date Given: Yes Immunizations Up to Date: Yes - Review of Systems Constitutional: No Fever, No Chills Eyes: No Symptoms Ears, Nose, & Throat: No Symptoms Respiratory: No Symptoms, No Cough, No Dyspnea Cardiac: No Symptoms, No Chest Pain, No Edema, No Syncope Abdominal/Gastrointestinal: No Symptoms, No Abdominal Pain, No Nausea, No Vomiting, No Diarrhea Genitourinary Symptoms: No Symptoms, No Dysuria Musculoskeletal: No Symptoms, No Back Pain, No Neck Pain Skin: Skin Lesions, No Rash Neurological: No Symptoms, No Dizziness, No Focal Weakness, No Sensory Changes Psychological: No Symptoms Endocrine: No Symptoms All Other Systems: Reviewed and Negative - Past Medical History Pertinent Past Medical History: Yes Neurological History: Migraines, TIA ENT History: No Pertinent History Cardiac History: Angina, Coronary Artery Disease, High Cholesterol, Hypertension , Myocardial Infarction ([place]) Respiratory History: COPD Endocrine Medical History: Diabetes Type II Musculoskeletal History: Osteoarthritis, Osteoporosis GI Medical History: Cirrhosis, GERD, Hemorrhoids, Hepatitis, Ulcer History: Other Psycho-Social History: Anxiety Female Reproductive Disorders: No Pertinent History Other Medical History: hx kidney infection - Past Surgical History Past Surgical History: Yes Cardiac: CABG, Cardiac Catheterization, Cardiac Stent Respiratory: No Pertinent History Gastrointestinal: Appendectomy, Cholecystectomy Genitourinary: No Pertinent History Musculoskeletal: Joint Replacement, Orthopedic Surgery Female Surgical History: Hysterectomy Other Surgical History: Bilateral SHOULDERS, RIGHT KNEE, BACK - Social History Smoking Status: Current every day smoker How long have you smoked: 50 Exposure to second hand smoke: Yes Drug Use: none Patient Lives Alone: No - Nursing Vital Signs Nursing Vital Signs: Initial Vital Signs Temperature 98.9 F Temperature Source Oral Pulse Rate 91 Respiratory Rate 20 Blood Pressure [] 145/74 Pain Intensity 5 - Physical Exam General Appearance: mild distress Eye Exam: PERRL/EOMI, eyes nml inspection Ears, Nose, Throat Exam: normal ENT inspection, moist mucous membranes Neck Exam: normal inspection, non-tender, supple Respiratory Exam: normal breath sounds, lungs clear, No respiratory distress Cardiovascular Exam: regular rate/rhythm, normal heart sounds, No edema Gastrointestinal/Abdomen Exam: soft, normal bowel sounds, No tenderness, No mass Back Exam: normal inspection, No CVA tenderness, No vertebral tenderness Extremity Exam: normal inspection, normal range of motion Neurologic Exam: alert, oriented x 3, cooperative, normal mood/affect, nml cerebellar function, sensation nml, No motor deficits Skin Exam: normal color, warm, dry Lymphatic Exam: No adenopathy SpO2 Interpretation: normal SpO2: 96 Oxygen Delivery: Room Air - Course EKG Interpreted by Me: RATE, Sinus Rhythm, NORMAL AXIS, Non-specific ST Changes - Radiology Exams Chest X-ray Interpretation: Interpreted by me, Negative (PREVIOUS STERNOTOMY) - CT Exams Head CT Interpretation: Tele-radiologist Report (THEREIS DIFFUSE CEREBRAL VOLUME LOSS AND CHRONIC SMALL VESSEL DISEASE. LACUNAR INFARCTS IN THE LEFT CAUDATE HEAD AGAIN SEEN. THERE IS A NEW 5MM HYPERDENSITY IN THE ANTERIOR FALX ON THE RIGHT, DIFFERENTIAL INCLUDES SMALL SUBDURAL HEMATOMA VS MENINGIOMA) Cervical Spine CT Interpretation: Tele-radiologist Report (NO ACUTE OSSEOUS ABNORMALITY) Ordered Tests: Active Orders 24 hr Category Date Time Status Bedrest with BRP/BSC TOLERATED Activity 04/10/17 02:40 Active Admission/Status Order ROUTINE Care 04/10/17 02:40 Active Link Trainer Maintenance Worker CONTINUOUS Care 04/10/17 02:40 Active Link Trainer Maintenance Worker STAT Care 04/09/17 23:52 Active Code Status Order ROUTINE Care 04/10/17 02:39 Active EKG-ER Only STAT Care 04/09/17 23:52 Active IV Insertion STAT Care 04/09/17 23:52 Active IV Insertion STAT Care 04/10/17 02:40 Active Implement Chest Pain Pathway ROUTINE Care 04/10/17 02:40 Active Vital Signs .[id number],q3omx2,q1hx2,[id number] Care 04/10/17 02:39 Active Weight,Daily 0600 Care 04/10/17 02:40 Active CERVICAL SPINE WO CONTRAST [CT] Stat Exams 04/10/17 01:27 Taken CHEST 1 VIEW (PORTABLE) Stat Exams 04/09/17 23:52 Taken HEAD WITHOUT CONTRAST [CT] Stat Exams 04/10/17 00:09 Taken MRA BRAIN WITH CONTRAST [MRI] Stat Exams 04/10/17 02:51 Ordered BMP Stat Lab 04/09/17 23:56 Completed CBC W DIFF Stat Lab 04/09/17 23:56 Completed MAGNESIUM Stat Lab 04/10/17 00:08 Completed TROPONIN Q3H Lab 04/09/17 23:55 Completed TROPONIN Q3H Lab 04/10/17 02:45 Ordered TROPONIN Q3H Lab 04/10/17 02:46 Received TROPONIN Q3H Lab 04/10/17 05:45 Ordered TROPONIN Q3H Lab 04/10/17 05:52 Ordered TROPONIN Q3H Lab 04/10/17 08:45 Ordered TROPONIN Q3H Lab 04/10/17 08:52 Ordered TROPONIN Q3H Lab 04/10/17 11:45 Ordered TROPONIN Q3H Lab 04/10/17 11:52 Ordered TROPONIN Q3H Lab 04/10/17 14:45 Ordered EKG Q8HX2,QAMX3,PRN RT 04/10/17 02:40 Active Oxygen NASAL CANNULA 2 lpm RT 04/10/17 02:43 Active Pulse Oximetry CONTINUOUS RT 04/10/17 02:44 Active Schedule Outpt Stress Test Routine RT 04/10/17 02:43 Active Transfer Order Routine Transfer 04/10/17 02:38 Ordered Medication Summary Generic Name Dose Route Start Last Admin Trade Name Freq PRN Reason Stop Dose Admin Sodium Chloride 1,000 mls @ 50 mls/hr 04/09/17 23:45 04/10/17 00:23 Sodium Chloride 0.9% 1000 Ml IV 05/09/17 23:44 50 mls/hr .Q20H RANDY Administration Nicardipine HCl 25 mg/ Sodium 250 mls @ 0 mls/hr 04/10/17 01:00 04/10/17 01: 17 Chloride IV 04/10/17 04:59 5 mls/hr .Q0M PRN Administration TITRATE FOR BLOOD PRESSURE Titrate Sodium Chloride 500 mls @ 20 mls/hr 04/10/17 02:45 Sodium Chloride 0.9% 500 Ml IV 05/10/17 02:44 .Q24H RANDY Lorazepam 0.5 mg 04/10/17 02:46 Ativan 0.5 Mg PO 05/10/17 02:45 Q6H PRN PRN ANXIETY Ondansetron HCl 4 mg 04/10/17 02:39 Zofran 4 Mg/2 Ml Vial IV 05/10/17 02:38 Q4H PRN PRN NAUSEA/VOMITING Oxycodone HCl 15 mg 04/10/17 10:00 Oxy-Ir 5 Mg PO 04/15/17 09:59 BID RANDY Discontinued Medications Generic Name Dose Route Start Last Admin Trade Name Luz Maria PRN Reason Stop Dose Admin Fentanyl Citrate 100 mcg 04/10/17 00:20 04/10/17 00:28 Sublimaze 100 Mcg/2 Ml IV 04/10/17 00:21 100 mcg STAT ONE Administration Fentanyl Citrate Confirm 04/10/17 00:25 Sublimaze 100 Mcg/2 Ml Administered 04/10/17 00:26 Dose 100 mcg .ROUTE .STK-MED ONE Hydralazine HCl 20 mg 04/09/17 23:53 04/10/17 00:23 Apresoline 20 Mg/Ml Inj IV 04/10/17 00:08 Not Given STAT ONE Hydralazine HCl 10 mg 04/10/17 00:10 04/10/17 00:23 Apresoline 20 Mg/Ml Inj IV 04/10/17 00:11 10 mg STAT ONE Administration Hydralazine HCl Confirm 04/10/17 00:13 Apresoline 20 Mg/Ml Inj Administered 04/10/17 00:14 Dose 20 mg .ROUTE .STK-MED ONE Sodium Chloride Confirm 04/10/17 01:06 Sodium Chloride 0.9% 250 Ml Administered 04/10/17 01:07 Dose 250 mls @ ud IV .STK-MED ONE Lorazepam 1 mg 04/10/17 01:29 04/10/17 01:32 Ativan 2 Mg/1 Ml Vial IV 04/10/17 01:30 1 mg STAT ONE Administration Lorazepam Confirm 04/10/17 01:31 Ativan 2 Mg/1 Ml Vial Administered 04/10/17 01:32 Dose 2 mg .ROUTE .STK-MED ONE Nicardipine HCl Confirm 04/10/17 01:06 Cardene 25 Mg/10 Ml Administered 04/10/17 01:07 Dose 25 mg IV .STK-MED ONE Ondansetron HCl 4 mg 04/10/17 00:10 04/10/17 00:23 Zofran 4 Mg/2 Ml Vial IV 04/10/17 00:11 4 mg STAT ONE Administration Ondansetron HCl Confirm 04/10/17 00:13 Zofran 4 Mg/2 Ml Vial Administered 04/10/17 00:14 Dose 4 mg .ROUTE .STK-MED ONE Pantoprazole Sodium 40 mg 04/10/17 02:44 Protonix 40mg Tablet PO 04/10/17 02:45 STAT ONE Lab/Rad Data: Laboratory Result Diagrams 04/09/17 23:56 04/09/17 23:56 Laboratory Results 04/10/17 04/09/17 04/09/17 Range/Units 00:08 23:56 23:56 WBC 6.0 (4.0-10.5) K/mm3 RBC 4.77 (4.1-5.4) M/mm3 Hgb 11.0 L (12.0-16.0) gm/dl Hct 36.1 (35-47) % MCV 75.7 L (78-100) fl MCH 23.0 L (26-32) pg MCHC 30.5 L (32-36) g/dl RDW 17.0 H (11.5-14.0) % Plt Count 251 (150-450) K/mm3 MPV 11.8 H (6-9.5) fl Gran % 61.4 (36.0-66.0) % Lymphocytes % 27.0 (24.0-44.0) % Monocytes % 6.6 (0.0-12.0) % Eosinophils % 4.5 (0.00-5.0) % Basophils % 0.5 (0.0-0.4) % Basophils # 0.03 (0-0.4) Sodium 136 (136-145) mEq/L Potassium 4.2 (3.5-5.1) mEq/L Chloride 103 (98-107) mEq/L Carbon Dioxide 25.1 (21-32) mEq/L Anion Gap 12.5 (5-15) MEQ/L BUN 12 (9-20) mg/dL Creatinine 1.07 (0.55-1.30) mg/dl Estimated GFR 55 ML/MIN Glucose 146 H (70-110) MG/DL Calcium 8.9 (8.5-10.1) mg/dL Magnesium 2.0 (1.8-2.4) mg/dL Troponin I (0.000-0.056) ng/ml 04/09/17 Range/Units 23:55 WBC (4.0-10.5) K/mm3 RBC (4.1-5.4) M/mm3 Hgb (12.0-16.0) gm/dl Hct (35-47) % MCV (78-100) fl MCH (26-32) pg MCHC (32-36) g/dl RDW (11.5-14.0) % Plt Count (150-450) K/mm3 MPV (6-9.5) fl Gran % (36.0-66.0) % Lymphocytes % (24.0-44.0) % Monocytes % (0.0-12.0) % Eosinophils % (0.00-5.0) % Basophils % (0.0-0.4) % Basophils # (0-0.4) Sodium (136-145) mEq/L Potassium (3.5-5.1) mEq/L Chloride (98-107) mEq/L Carbon Dioxide (21-32) mEq/L Anion Gap (5-15) MEQ/L BUN (9-20) mg/dL Creatinine (0.55-1.30) mg/dl Estimated GFR ML/MIN Glucose (70-110) MG/DL Calcium (8.5-10.1) mg/dL Magnesium (1.8-2.4) mg/dL Troponin I < 0.017 (0.000-0.056) ng/ml - Progress Progress Note: 04/10/17 01:50 PATIENT GIVEN IV NORMAL SALINE AT 100ML/HR, ZOFRAN 4MG, FENTANYL 0.1MG IV, HYDRALAZINE 10MGIV WITH NO CHANGE IN BP, IV CARDENE TITRATED TO 5MG/HR INFUSION BP 160/84 PATIENT ADMITS ABOUT FALLING OFF A 4 FOOT STEP LADDER 4 DAYS AGO STRIKING THE LEFT BACK SIDE OR HER HEAD ASSOCIATED WITH NECK PAIN. DENIES LOC, NAUSEA, NUMBNESS, TINGLING OR WEAKNESS IN EXTREMITIES. 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
[2017-04-10] MEDS ORDERED: CARDENE 25 MG/10 ML*** 25 MG in Sodium Chloride 0.9% 250 ML 240 ML IV PRN ×2 (01:00→06:40)
[2017-04-10] MEDS ORDERED: Sodium Chloride 0.9% 250 ML 250 ML IV ONE (01:06)
[2017-04-10] MEDS ORDERED: CARDENE 25 MG/10 ML IV ONE (01:06)
[2017-04-10] MEDS ORDERED: Ativan 2 MG/1 ML VIAL IV ONE (01:29)
[2017-04-10] MEDS ORDERED: Ativan 2 MG/1 ML VIAL ONE (01:31)
[2017-04-10] MEDS ORDERED: Zofran 4 MG/2 ML VIAL IV PRN (02:39)
[2017-04-10] MEDS ORDERED: Protonix 40MG Tablet PO ONE (02:44)
[2017-04-10] MEDS ORDERED: Sodium Chloride 0.9% 500 ML 500 ML IV SCH (02:45)
[2017-04-10] MEDS ORDERED: Ativan 0.5 MG PO PRN (02:46)
[2017-04-10] MEDS ORDERED: Oxy-IR 5 MG ONE (03:25)
[2017-04-10] MEDS ORDERED: Oxy-IR 5 MG PO PRN (03:51)
[2017-04-10] MEDS ORDERED: TYLENOL 325 MG PO PRN (04:45)
[2017-04-10] MEDS ORDERED: Phenergan 25 MG INJ IV PRN (04:45)
[2017-04-10] MEDS ORDERED: Nitrostat 0.4 MG Tablet SL PRN (04:45)
[2017-04-10] MEDS ORDERED: MORPHINE SULFATE 2 MG INJ ONE (06:32)
[2017-04-10] MEDS: MORPHINE SULFATE 2 MG INJ IV PRN ×9 (06:33→22:24)
--- NOTE | 2017-04-10 08:46 | PCM.HP ---
History of Present Illness - Chief Complaint Chief Complaint: uncontrolled HTN History of Present Illness: is a 61 year old female pt of Dr. Diop who has had elevated blood pressures, in the low 220s, for several days. She also c/o severe BRADY frontal and "I feel like my eyes are popping out." She also fell 4d ago and hit the back of her head on the ground. She denies new paresthesias (has chronic LE paresthesias). She denies speech changes. She had CT brain and CT neck in the ER - brain showed new 5mm hyperdensity in anterior falx on the R - small subduarl hematoma vs meningioma. MRA brain was ordered for this morning but the staff person available to do this is out sick. She is still c/o BRADY. Does have Hx TIAs. CAD with [place] x 2 and CABG. Smokes 1/2 PPD. Does not have a grounds keeper or neurologist in [place], but did have these specialists in [place]. Here wiht her son today. - Review of Systems Constitutional: Weight Loss (80 lb intentional) Eyes: Eye Pain Respiratory: Cough (chronic) Cardiac: No Chest Pain Abdominal/Gastrointestinal: Nausea, Diarrhea (intermittent episodes x 2 in past few months) Neurological: Headache, Parasthesia (chronic, LE bilat) Psychological: Depression (history of, better on SSRI), No Suicidal Ideations Medications & Allergies Home Medications: Home Medication List Clopidogrel Bisulfate [Plavix] 75 mg PO DAILY 03/28/16 [History Confirmed ] Meclizine HCl 25 mg [Antivert 25 mg] 25 mg PO TIDPRN PRN 03/28/16 [ History Confirmed 04/09/17] Metoprolol Succinate [Toprol Xl] 50 mg PO DAILY 03/28/16 [History Confirmed ] Oxycodone HCl 10 mg PO DAILY PRN PRN 03/28/16 [History Confirmed 04/09/17] PANTOPRAZOLE 40 mg Tablet [Protonix 40MG Tablet] 40 mg PO DAILY 03/28/16 [ History Confirmed 04/09/17] Tizanidine HCl 4 mg [Zanaflex 4 MG] 4 mg PO TIDPRN PRN 03/28/16 [History Confirmed 04/09/17] Atorvastatin Calcium 40 mg PO DAILY 03/29/16 [History Confirmed 04/09/17] Lorazepam 0.5 mg [Ativan 0.5 MG] 0.5 mg PO HS 03/29/16 [History Confirmed 04/09/17] Hydralazine HCl 10 mg PO TID #90 tablet 12/01/16 [Rx Confirmed 04/09/17] Lisinopril 20 mg [Zestril 20 MG] 20 mg PO BID #60 tablet 12/01/16 [Rx Confirmed 04/09/17] Gabapentin [Neurontin] 900 mg PO TID 04/10/17 [History Confirmed 04/10/17] Sertraline HCl [Zoloft] 100 mg PO HS 04/10/17 [History Confirmed 04/10/17] Trazodone HCl 100 mg PO HS 04/10/17 [History Confirmed 04/10/17] Allergies/Adverse Reactions: Allergies Allergy/AdvReac Type Severity Reaction Status Date / Time ibuprofen Allergy Verified 04/09/17 23:47 NSAIDS (Non-Steroidal Allergy Verified 04/09/17 23:47 Anti-Inflamma Penicillins Allergy Verified 04/09/17 23:47 - Past Medical History Past Medical History: Yes Neurological History: Migraines, TIA ENT History: No Pertinent History Cardiac History: Angina, Coronary Artery Disease, High Cholesterol, Hypertension , Myocardial Infarction ([place]) Respiratory History: COPD Endocrine Medical History: Diabetes Type II Musculoskelatal History: Osteoarthritis, Osteoporosis GI Medical History: Cirrhosis, GERD, Hemorrhoids, Hepatitis, Ulcer History: Other Pyscho-Social History: Anxiety Reproductive Disorders: No Pertinent History Comment: hx kidney infection - Female History Are you now?: No - Past Surgical History Past Surgical History: Yes Cardiac History: CABG, Cardiac Catheterization, Cardiac Stent Respiratory Surgery: No Pertinent History GI Surgical History: Appendectomy, Cholecystectomy Genitourinary Surgical Hx: No Pertinent History Musculskeletal Surgical Hx: Joint Replacement, Orthopedic Surgery Female Surgical History: Hysterectomy Other Surgical History: Bilateral SHOULDERS, RIGHT KNEE, BACK - Social History Smoking Status: Current every day smoker How long have you smoked: 50 Exposure to second hand smoke: No Alcohol: None Drug Use: none - Physical Exam Vital Signs: Vital Signs - 24 hr Temp Pulse Resp BP Pulse Ox 04/10/17 08:00 98.8 F 87 16 155/79 93 L 04/10/17 07:25 86 16 92 L 04/10/17 07:19 82 04/10/17 07:00 82 18 152/75 92 L 04/10/17 06:00 82 147/79 04/10/17 05:00 85 18 158/87 96 04/10/17 04:30 98.9 F 91 H 18 173/87 96 04/10/17 04:00 98.8 F 88 18 136/91 96 04/10/17 03:05 96 04/10/17 02:53 96 04/10/17 02:03 91 H 20 145/74 95 04/10/17 01:33 88 20 160/92 98 04/10/17 01:18 87 18 201/96 95 04/10/17 00:29 76 20 207/102 96 04/09/17 23:42 98.9 F 90 20 204/115 96 Oxygen-Last 24 hours O2 Percentage 2 Liters = 28% O2 Percentage 2 Liters = 28% O2 Percentage 2 Liters = 28% General Appearance: no apparent distress, obese Neurologic Exam: alert, oriented x 3, cooperative, home health assistant II-XII nml as tested, other (somewhat somnolent but can carry on a conversation. Joy Operator 5/5 bilat. LE proximal strength 5/5 bilat.) Eye Exam: eyes nml inspection, other (EOMI bilat) Ears, Nose, Throat Exam: pharynx normal, moist mucous membranes Neck Exam: normal inspection Respiratory Exam: normal breath sounds, lungs clear, No crackles/rales, No rhonchi, No wheezing Cardiovascular Exam: regular rate/rhythm, normal heart sounds, No murmur Gastrointestinal/Abdomen Exam: soft, normal bowel sounds, No distention, No mass Back Exam: normal inspection Extremity Exam: normal inspection, No pedal edema, No swelling Skin Exam: normal color, warm, dry Results - Labs Lab/Micro Results: Lab Results-Last 24 Hours 04/10/17 Range/Units 04:58 Troponin I < 0.017 (0.000-0.056) ng/ml - Radiology Impressions Radiology Exams & Impressions: Radiology Procedures Category Date Time Status MRA BRAIN WITH CONTRAST [MRI] Stat Exams 04/10/17 03:16 Ordered - Other Procedures and Tests Respiratory Therapy 04/10/17 02:43 Oxygen NASAL CANNULA 2 lpm Schedule Outpt Stress Test Routine 04/11/17 05:00 EKG DAILY 04/12/17 05:00 EKG DAILY 04/13/17 05:00 EKG DAILY Assessment/Plan (1) Hypertensive emergency, no CHF Current Visit: Yes Status: Acute Assessment & Plan: She is on a cardene drip, just turned down to 4/hr, with BP 150/94. Goal for right now would be no lower than 160 systolic. Weaning off the drip; starting hydralazine 10mg po TID. Code(s): I16.1 - HYPERTENSIVE EMERGENCY (2) Diabetes mellitus Current Visit: Yes Status: Acute Qualifiers: Diabetes mellitus type: type 2 Diabetes mellitus complication status: with neurologic complications Diabetes mellitus complication detail: with polyneuropathy Diabetes mellitus termite helper insulin use: without group home use Qualified Code(s): E11.42 - Type 2 diabetes mellitus with diabetic polyneuropathy Assessment & Plan: Will check BS AC/HS. Code(s): E11.9 - TYPE 2 DIABETES MELLITUS WITHOUT COMPLICATIONS (3) Coronary artery disease Current Visit: Yes Status: Acute Qualifiers: Coronary Disease-Associated Artery/Lesion type: bypass graft [place] vs. transplanted heart: [place] heart Associated angina: without angina Qualified Code(s): I25.810 - Atherosclerosis of coronary artery bypass graft(s) without angina pectoris Assessment & Plan: Troponins have been negative. Code(s): I25.10 - ATHSCL HEART DISEASE OF [place] CORONARY ARTERY W/O ANG PCTRS (4) Hepatitis C Current Visit: No Status: Resolved Qualifiers: Viral hepatitis chronicity: chronic Assessment & Plan: Was treated, last checked had no viral load per pt.
--- NOTE | 2017-04-10 09:24 | XRAY ---
Indication: Dyspnea and hypertension. Comparison: November 30, 2016. Portable chest unchanged again clear with previous CABG surgery and bilateral shoulder arthroplasty. Heart is not enlarged. No new/acute findings.
--- NOTE | 2017-04-10 09:32 | XRAY ---
Indication: Frontal/temporal headache for 3 days. Hypertension. Patient fell 4 days ago. TIA. Multiple contiguous axial images obtained through the head without contrast. Comparison: November 30, 2016. Anterior falx demonstrates new 5 mm curvilinear hyperdensity either tiny bleed versus calcified meningioma (image 21, series 2). Elsewhere there is stable global atrophy, minimal periventricular degenerative micro-ischemia, and left caudate remote lacunar infarct. No mass effect/midline shifting. [place]-white matter differentiation preserved. Fourth ventricle is midline without hydrocephalus. Bony calvarium intact. Visualized paranasal sinuses and mastoid air cells are clear. Impression: 1. New 5 mm anterior falx right paramedian hyperdensity, tiny bleed versus calcified meningioma. 2. Stable normal aging brain with remote left caudate lacunar infarct. Comment: Preliminary interpretation was made by C. No discrepancy. CTDI 70.38
--- NOTE | 2017-04-10 09:36 | XRAY ---
Indication: Neck pain following fall 4 days ago. TIA. Multiple contiguous axial images obtained through the cervical spine. Sagittal and coronal reformatted images obtained. Comparison: January 25, 2015. Images through the lower cervical spine slightly degraded by motion artifact. Axial images again negative for acute fracture, suspicious bony lesions, or spinal canal stenosis. Sagittal and coronal reformatted images again demonstrates normal alignment with minimal C6-C7 disc space narrowing. No acute compression fracture, subluxation, or jumped facet. Normal-appearing craniocervical junction. Visualized noncontrasted soft tissues again demonstrates minimal right carotid calcifications. Lung apices clear. CT head reported separately. Impression: 1. Mild motion artifact. Again negative for acute fracture/subluxation. 2. Stable C6-C7 disc space narrowing. Comment: Preliminary interpretation was made by [facility]. No discrepancy. CTDI 126.51
[2017-04-10] MEDS ORDERED: ANTIVERT 25 MG PO PRN (09:54)
[2017-04-10] MEDS ORDERED: Zanaflex 4 MG PO PRN (09:54)
[2017-04-10] MEDS ORDERED: Oxy-IR 5 MG PO SCH ×2 (10:00)
[2017-04-10] MEDS ORDERED: LIPITOR 40MG PO SCH (10:00)
[2017-04-10] MEDS ORDERED: NON-FORMULARY ITEM (Hydralazine Hcl [Hydralazine Hcl] 10 MG) PO SCH (10:00)
[2017-04-10] MEDS: NEURONTIN 300 MG PO SCH ×3 (10:18→22:29)
[2017-04-10] MEDS: ZOCOR 20MG PO SCH (10:18)
[2017-04-10] MEDS: Protonix 40MG Tablet PO SCH (10:18)
[2017-04-10] MEDS: Apresoline 25 MG TABLET PO SCH ×3 (10:18→22:29)
[2017-04-10] MEDS: Toprol Xl 50 MG PO SCH (15:42)
[2017-04-10] MEDS ORDERED: NON-FORMULARY ITEM (Trazodone Hcl [Trazodone Hcl] 100 MG) PO SCH (22:00)
[2017-04-10] MEDS ORDERED: NON-FORMULARY ITEM (Sertraline Hcl [Zoloft] 100 MG) PO SCH (22:00)
[2017-04-10] MEDS: ZOLOFT 50 MG TABLET PO SCH (22:29)
[2017-04-10] MEDS: DESYREL 50 MG PO SCH (22:30)
[2017-04-10] MEDS: Ativan 0.5 MG PO SCH (22:36)
[2017-04-11] MEDS ORDERED: Sodium Chloride 0.9% 250 ML 250 ML IV SCH ×2 (01:00→01:10)
[2017-04-11] MEDS: Sodium Chloride 0.9% 1000 ML 1,000 ML IV SCH (02:05)
[2017-04-11] MEDS: ZOCOR 20MG PO SCH (11:38)
[2017-04-11] MEDS: Protonix 40MG Tablet PO SCH (11:39)
[2017-04-11] MEDS: NEURONTIN 300 MG PO SCH ×3 (11:40→22:00)
[2017-04-11] MEDS: Toprol Xl 50 MG PO SCH (11:40)
[2017-04-11] MEDS: Oxycontin 20 MG ER PO SCH ×2 (11:40→22:00)
--- NOTE | 2017-04-11 12:53 | XRAY ---
Exam: MRI of the brain without and with 15 ML's of IV Magnevist from 04/11/2017. Comparison: CT of the head without IV contrast from 04/10/2017. Indication: Subdural hematoma versus meningioma. Technique: Routine multiplanar, multisequence imaging of the brain was obtained without and with IV contrast per protocol. Findings: The tiny hyperdensity seen along the right margin of the anterior falx on yesterday's CT study is difficult to identify on the MR I, although I believe there is a tiny focus of hyperintensity seen at this site on midline sagittal T1-weighted image #3 and axial T1-weighted FLAIR image #9 measuring about 4 mm in length and 2 mm in width. Evidently, this is new from a prior CT study from 11/30/2016. This could represent a tiny subacute bleed. It is no larger than yesterday. The postcontrast images reveal no abnormal enhancement to suggest a mass lesion. There is some artifact overlying the right ear and peripheral temporal region, apparently due to the patient's inability to remove a metallic earring on this side. The ventricles are of normal size. No focal mass effect or midline shift is seen. I see some scattered increased subcortical and periventricular signal intensities on the axial T2 FLAIR images which likely reflect mild chronic small vessel ischemic disease. The diffusion weighted images reveal no evidence of restricted diffusion to suggest an acute infarct. No abnormal extra-axial fluid collections are seen. There is mild prominence of the cortical sulci, not appropriate for the patient's age. I see no other areas of abnormal signal enhancement within the brain. No other abnormal increased or decreased signal intensities are seen. The flow voids appear unremarkable about the [place] of [place]. No abnormality of the brain stem or cerebrum is seen. Seventh and eighth cranial nerve complexes appear unremarkable. The visualized sinuses appear unremarkable. Impression: 1. Previously noted tiny high attenuation density just to the right of anterior falx on axial image #[address] study appears about the same size measuring roughly 4 mm in length and 2 mm in width. There is no enhancement at this level. I believe it is likely that this represents a subtle tiny subacute bleed. No other areas of hemorrhage are seen. 2. Mild chronic small vessel ischemic changes are seen. 3. The patient was unable to remove a metallic right earring which resulted in some artifact. 4. No other significant abnormality was detected.
[2017-04-11] MEDS: Oxy-IR 5 MG PO PRN (20:03)
[2017-04-11] MEDS: Ativan 0.5 MG PO SCH (20:29)
[2017-04-11] MEDS: ZOLOFT 50 MG TABLET PO SCH (22:00)
[2017-04-11] MEDS: DESYREL 50 MG PO SCH (22:00)
[2017-04-12] MEDS: Sodium Chloride 0.9% 1000 ML 1,000 ML IV SCH (00:36)
--- NOTE | 2017-04-12 07:37 | PCM.NOTE ---
Date and Time: 04/12/17734 Subjective Assessment: patient is feeling well today, bp has been reasonable overnight. she denies chest pain at this time, no dyspnea Objective Exam General Appearance: no apparent distress, alert Respiratory Exam: normal breath sounds, lungs clear, No respiratory distress Cardiovascular Exam: regular rate/rhythm, normal heart sounds Gastrointestinal/Abdomen Exam: soft, No tenderness, No mass Extremity Exam: normal inspection, normal range of motion OBJECTIVE DATA Vital Signs: Vital Signs - 24 hr Temp Pulse Resp BP Pulse Ox 04/12/17 07:21 97.9 F 67 18 135/67 90 L 04/12/17 03:49 98.1 F 64 19 154/68 94 L 04/11/17 23:47 97.7 F 74 18 158/71 93 L 04/11/17 19:52 98.8 F 71 18 147/80 93 L 04/11/17 19:19 91 L 04/11/17 16:00 97.9 F 67 17 142/75 93 L 04/11/17 15:00 66 18 133/73 92 L 04/11/17 14:00 67 16 109/60 94 L 04/11/17 12:57 61 14 110/70 90 L 04/11/17 12:00 98.5 F 63 18 135/81 93 L 04/11/17 11:00 67 18 144/82 93 L 04/11/17 10:00 71 13 114/62 04/11/17 09:00 63 12 124/72 04/11/17 08:00 98.7 F 66 15 126/70 97 Oxygen-Last 24 hours O2 Percentage 2 Liters = 28% Pain Assessment - Last Documented Pain Intensity 7 Pain Scale Used 0-10 Pain Scale Intake and Output: Intake & Output 04/09/17 04/10/17 04/11/17 04/12/17 11:59 11:59 11:59 11:59 Intake Total 1118 3740 2253 Output Total 350 3850 300 Balance 768 -110 1953 Weight 84.323 kg 85.8 kg 88.723 kg Radiology Exams: Radiology Procedures Category Date Time Status MRI BRAIN W & W/O CONTRAST [MRI] Stat Exams 04/11/17 Completed Assessment/Plan (1) Intracranial hemorrhage Current Visit: Yes Status: Acute Assessment & Plan: very small and stable, appears subacute on MRI. needs good bp control and followup as outpatient Code(s): I62.9 - NONTRAUMATIC INTRACRANIAL HEMORRHAGE, UNSPECIFIED (2) Hypertensive emergency, no CHF Current Visit: Yes Status: Acute Assessment & Plan: better control, continue metoprolol and add lisinopril 10mg daily today Code(s): I16.1 - HYPERTENSIVE EMERGENCY (3) Chest pain, rule out acute myocardial infarction Current Visit: No Status: Acute Assessment & Plan: DC ruled out Code(s): R07.9 - CHEST PAIN, UNSPECIFIED
[2017-04-12] MEDS: NEURONTIN 300 MG PO SCH ×3 (09:05→21:15)
[2017-04-12] MEDS: Zestril 10 MG PO SCH (09:06)
[2017-04-12] MEDS: Oxycontin 20 MG ER PO SCH ×2 (09:06→21:15)
[2017-04-12] MEDS: ZOCOR 20MG PO SCH (09:06)
[2017-04-12] MEDS: Toprol Xl 50 MG PO SCH (09:06)
[2017-04-12] MEDS: Protonix 40MG Tablet PO SCH (09:06)
[2017-04-12] MEDS: Oxy-IR 5 MG PO PRN (14:34)
[2017-04-12] MEDS: KENALOG 0.1% CREAM 15 GM TP SCH ×2 (16:45→21:14)
[2017-04-12] MEDS: Ativan 0.5 MG PO SCH (21:14)
[2017-04-12] MEDS: DESYREL 50 MG PO SCH (21:14)
[2017-04-12] MEDS: ZOLOFT 50 MG TABLET PO SCH (21:15)
[2017-04-13 04:27] VITALS: BP 172/80; PULSE 75
[2017-04-13 05:47] LABS: Mean Cell Volume 78.2 fl (78-100); Mean Corpuscular Hemoglobin 23.3 pg (26-32); Mean Platelet Volume 11.2 fl (6-9.5); Platelet Count 169 K/mm3 (150-450); Red Blood Count 3.99 M/mm3 (4.1-5.4); Red Cell Distribution Width 16.8 % (11.5-14.0); White Blood Count 4.1 K/mm3 (4.0-10.5)
[2017-04-13 06:14] LABS: ANION GAP 10.8 MEQ/L (5-15); Carbon Dioxide 29.4 mEq/L (21-32)
[2017-04-13 07:43] VITALS: O2SAT 90
--- NOTE | 2017-04-13 07:45 | PCM.DS ---
Discharge Summary Date of Admission: 04/10/17 02:58 Admitting Physician: JOON RABAGO Primary Care Provider: JOON RABAGO Allergies Allergies ibuprofen Allergy (Verified 04/09/17 23:47) NSAIDS (Non-Steroidal Anti-Inflamma Allergy (Verified 04/09/17 23:47) Penicillins Allergy (Verified 04/09/17 23:47) Hospital Summary - Hospital Course Hospital Course: patient doing well at time of discharge, was admitted with hypertensive urgency. has a small subdural hematoma subacute on CT and MRI. she has no neuro complaints, bp well controlled now with addition of lisinopril and on metoprolol - Vitals & Intake/Output Vital Signs: Vital Signs Temperature 98.2 F 04/13/17 04:00 Pulse Rate 75 04/13/17 04:00 Respiratory Rate 16 04/13/17 04:00 Blood Pressure 172/80 04/13/17 04:00 O2 Sat by Pulse Oximetry 93 L 04/13/17 04:00 Oxygen-Last Documented O2 Percentage 2 Liters = 28% Intake & Output: Intake & Output 04/10/17 04/11/17 04/12/17 04/13/17 11:59 11:59 11:59 11:59 Intake Total 1118 3740 2253 1120 Output Total 350 3850 300 500 Balance 768 -110 1953 620 Weight 84.323 kg 85.8 kg 88.723 kg - Lab Result Diagrams: 04/13/17 05:20 04/13/17 05:20 Lab Results-Last 24 Hrs: Lab Results-Last 24 Hours 04/13/17 04/13/17 Range/Units 05:20 05:20 WBC 4.1 (4.0-10.5) K/mm3 RBC 3.99 L (4.1-5.4) M/mm3 Hgb 9.3 L (12.0-16.0) gm/dl Hct 31.2 L (35-47) % MCV 78.2 (78-100) fl MCH 23.3 L (26-32) pg MCHC 29.8 L (32-36) g/dl RDW 16.8 H (11.5-14.0) % Plt Count 169 (150-450) K/mm3 MPV 11.2 H (6-9.5) fl Sodium 142 (136-145) mEq/L Potassium 4.0 (3.5-5.1) mEq/L Chloride 106 (98-107) mEq/L Carbon Dioxide 29.4 (21-32) mEq/L Anion Gap 10.8 (5-15) MEQ/L BUN 12 (9-20) mg/dL Creatinine 1.26 (0.55-1.30) mg/dl Estimated GFR 46 ML/MIN Glucose 124 H (70-110) MG/DL Calcium 8.9 (8.5-10.1) mg/dL - Procedures and Test Procedures and Tests throughout Hospitalization: Therapy Orders & Screens 04/10/17 02:43 Oxygen NASAL CANNULA 2 lpm Comment: Schedule Outpt Stress Test Routine Comment: Diagnosis: chest pain 04/10/17 04:44 Smoking Cessation Education ONCE Comment: Diagnosis: uncontrolled HTN Smoking Status: Current every day smoker How long have you smoked: 50 Have you smoked in the past 12 months: Yes Approximately how many cigarettes per day: 10 Do you dip or chew tobacco: No 04/10/17 08:16 EKG ROUTINE Comment: Diagnosis: chest pain 04/11/17 05:00 EKG DAILY Comment: Diagnosis: chest pain 04/12/17 05:00 EKG DAILY Comment: Diagnosis: chest pain 04/13/17 05:00 EKG DAILY Comment: Diagnosis: chest pain Discharge Exam General Appearance: no apparent distress, alert Neurologic Exam: alert, oriented x 3, cooperative, normal mood/affect, nml cerebellar function, sensation nml, No motor deficits Skin Exam: normal color, warm, dry Respiratory Exam: normal breath sounds, lungs clear, No respiratory distress Cardiovascular Exam: regular rate/rhythm, normal heart sounds Gastrointestinal/Abdomen Exam: soft, No tenderness, No mass Extremity Exam: normal inspection, normal range of motion Final Diagnosis/Problem List - Final Discharge Diagnosis/Problem (1) Intracranial hemorrhage Current Visit: Yes Status: Acute (2) Hypertensive emergency, no CHF Current Visit: Yes Status: Acute (3) Chest pain, rule out acute myocardial infarction Current Visit: No Status: Acute - Discharge Disposition: Home, Self-Care Condition: Stable Prescriptions: New Triamcinolone 0.1% Cream [Kenalog 0.1% Cream 15 gm] 1 gm TP BID #30 g Metoprolol Succinate 50 mg [Toprol Xl 50 MG] 50 mg PO DAILY #0 tablet.sa Continue Meclizine HCl 25 mg [Antivert 25 mg] 25 mg PO TIDPRN PRN PRN Reason: Dizziness Clopidogrel Bisulfate [Plavix] 75 mg PO DAILY Metoprolol Succinate [Toprol Xl] 50 mg PO DAILY PANTOPRAZOLE 40 mg Tablet [Protonix 40MG Tablet] 40 mg PO DAILY Tizanidine HCl 4 mg [Zanaflex 4 MG] 4 mg PO TIDPRN PRN PRN Reason: Pain Oxycodone HCl 10 mg PO DAILY PRN PRN PRN Reason: Pain Atorvastatin Calcium 40 mg PO DAILY Lorazepam 0.5 mg [Ativan 0.5 MG] 0.5 mg PO HS Lisinopril 20 mg [Zestril 20 MG] 20 mg PO BID #60 tablet Hydralazine HCl 10 mg PO TID #90 tablet Gabapentin [Neurontin] 900 mg PO TID Trazodone HCl 100 mg PO HS Sertraline HCl [Zoloft] 100 mg PO HS Oxycodone HCl Cr 20 mg [Oxycontin 20 MG ER] 20 mg PO BID Follow up with: JOON RABAGO MD [Primary Care Provider] -
[2017-04-13] MEDS: Toprol Xl 50 MG PO SCH (07:53)
[2017-04-13] MEDS: KENALOG 0.1% CREAM 15 GM TP SCH (07:54)
[2017-04-13] MEDS: ZOCOR 20MG PO SCH (07:54)
[2017-04-13] MEDS: Zestril 10 MG PO SCH (07:54)
[2017-04-13] MEDS: Protonix 40MG Tablet PO SCH (07:54)
[2017-04-13] MEDS: Oxycontin 20 MG ER PO SCH (07:54)
[2017-04-13] MEDS: NEURONTIN 300 MG PO SCH (07:54)
[2017-04-13] MEDS: Sodium Chloride 0.9% 1000 ML 1,000 ML IV SCH (07:55)
== END 2017-04-13 08:40 | disposition home health service (06) | DRG 65 ==
LOC: ED 23:41 → ICU 04-10 02:58 → OBSVTOIN 04-10 02:58 → MED SURG 04-11 19:00
PROVIDERS: ADMIT Family Medicine; ATTEND Family Medicine
DX: I62.9 Nontraumatic intracranial hemorrhage, unspecified (principal); I16.1 Hypertensive emergency; R07.9 Chest pain, unspecified; I10 Essential (primary) hypertension; K75.9 Inflammatory liver disease, unspecified; K21.9 Gastro-esophageal reflux disease without esophagitis; J44.9 Chronic obstructive pulmonary disease, unspecified; E11.9 Type 2 diabetes mellitus without complications; F41.9 Anxiety disorder, unspecified; Z86.73 Personal history of transient ischemic attack (TIA), and cerebral infarction without residual deficits; I25.2 Old myocardial infarction; Z72.0 Tobacco use; Z79.899 Other long term (current) drug therapy
CPT/HCPCS: 36000; 36415; 70450; 70553; 71010; 72125; 80048; 83036; 83735; 84484; 85025; 85027; 93005; 93041; 94760; 96360; 96361; 96365; 96366; 96374; 96375; 99285; J0360; J2060; J2270; J2405; J3010; A9270-GY

== ENCOUNTER 2017-06-26 19:55 | Emergency (ER) | payer MEDICARE ==
[2017-06-26] MEDS ORDERED: Nitrostat 0.4 MG (ED) SL ONE ×4 (20:44→22:41)
[2017-06-26] MEDS ORDERED: Zofran 4 MG/2 ML VIAL IV ONE (20:46)
[2017-06-26] MEDS ORDERED: Hydromorphone 1 mg/ml Ampule IV ONE ×2 (20:46→22:32)
--- NOTE | 2017-06-26 20:52 | ERPHSYRPT ---
- History of Present Illness Time Seen by Provider: 06/26/17 20:35 Source: patient Exam Limitations: no limitations Patient Subjective Stated Complaint: pt co headache nausea and high blood pressure -she states she does this from time to time with her blood pressure - dr walker has been trying to control her blood pressure and she was recently started on lyrica and taken off gabapentin for her chronic pain Triage Nursing Assessment: pt is awake and alert and able to answer questions with sunglasses on due to pain Physician History: FOR THE PAST WEEK PT HAS HAD INTERMITTENT HEADACHE, NAUSEA, PHOTOPHOBIA, ANKLE SWELLING AND HIGH BLOOD PRESSURE. PT DENIES CHEST PAIN, SHORTNESS OF AIR, ABDOMINAL PAIN, FEVER. Allergies/Adverse Reactions: ibuprofen Allergy (Verified 06/26/17 20:23) NSAIDS (Non-Steroidal Anti-Inflamma Allergy (Verified 06/26/17 20:23) Penicillins Allergy (Verified 06/26/17 20:23) Home Medications: Clopidogrel Bisulfate [Plavix] 75 mg PO DAILY 03/28/16 [History] Meclizine HCl 25 mg [Antivert 25 mg] 25 mg PO TIDPRN PRN 03/28/16 [History ] Metoprolol Succinate [Toprol Xl] 50 mg PO DAILY 03/28/16 [History] Oxycodone HCl 10 mg PO DAILY PRN PRN 03/28/16 [History] PANTOPRAZOLE 40 mg Tablet [Protonix 40MG Tablet] 40 mg PO DAILY 03/28/16 [ History] Tizanidine HCl 4 mg [Zanaflex 4 MG] 4 mg PO TIDPRN PRN 03/28/16 [History] Atorvastatin Calcium 40 mg PO DAILY 03/29/16 [History] Lorazepam 0.5 mg [Ativan 0.5 MG] 0.5 mg PO HS 03/29/16 [History] Gabapentin [Neurontin] 900 mg PO TID 04/10/17 [History] Sertraline HCl [Zoloft] 100 mg PO HS 04/10/17 [History] Trazodone HCl 100 mg PO HS 04/10/17 [History] Oxycodone HCl Cr 20 mg [Oxycontin 20 MG ER] 20 mg PO BID 06/21/17 [History ] Hx Tetanus, Diphtheria Vaccination/Date Given: Yes Hx Influenza Vaccination/Date Given: Yes Hx Pneumococcal Vaccination/Date Given: Yes - Review of Systems Constitutional: Other (HIGH BLOOD PRESSURE), No Fever Eyes: Photophobia Respiratory: No Dyspnea Cardiac: No Chest Pain Abdominal/Gastrointestinal: Nausea, No Abdominal Pain, No Vomiting Musculoskeletal: Joint Swelling (ANKLES) Neurological: Headache All Other Systems: Reviewed and Negative - Past Medical History Pertinent Past Medical History: Yes Neurological History: Migraines, TIA ENT History: No Pertinent History Cardiac History: Angina, Coronary Artery Disease, High Cholesterol, Hypertension , Myocardial Infarction ([place]) Respiratory History: COPD Endocrine Medical History: Diabetes Type II Musculoskeletal History: Osteoarthritis, Osteoporosis GI Medical History: Cirrhosis, GERD, Hemorrhoids, Hepatitis, Ulcer History: Other Psycho-Social History: Anxiety Female Reproductive Disorders: No Pertinent History Other Medical History: hx kidney infection - Past Surgical History Past Surgical History: Yes Cardiac: CABG, Cardiac Catheterization, Cardiac Stent Respiratory: No Pertinent History Gastrointestinal: Appendectomy, Cholecystectomy Genitourinary: No Pertinent History Musculoskeletal: Joint Replacement, Orthopedic Surgery Female Surgical History: Hysterectomy Other Surgical History: Bilateral SHOULDERS, RIGHT KNEE, BACK - Social History Smoking Status: Current every day smoker How long have you smoked: 50 Exposure to second hand smoke: Yes Drug Use: none Patient Lives Alone: No - Female History Hx Last Menstrual Period: hyst - Nursing Vital Signs Nursing Vital Signs: Initial Vital Signs Pulse Rate 70 06/26/17 20:26 Respiratory Rate 16 06/26/17 20:26 Blood Pressure 220/114 06/26/17 20:26 O2 Sat by Pulse Oximetry 98 06/26/17 20:26 Pain Scale Pain Intensity 10 - Physical Exam General Appearance: alert Eye Exam: PERRL/EOMI, photophobia Ears, Nose, Throat Exam: TMs normal, pharynx normal, moist mucous membranes Neck Exam: normal inspection Respiratory Exam: lungs clear Cardiovascular Exam: normal heart sounds Gastrointestinal/Abdomen Exam: soft, normal bowel sounds Back Exam: normal range of motion Extremity Exam: normal inspection, normal range of motion (FOR PT(HAS HAD BILATERAL SHOULDER SURGERY AND HAS ONLY MINOR SHOULDER ABDUCTION RESTRICTION).) , No pedal edema Neurologic Exam: alert, cooperative, sensation nml Skin Exam: warm, dry SpO2 Interpretation: normal SpO2: 98 Oxygen Delivery: Room Air - Course Nursing assessment & vital signs reviewed: Yes Ordered Tests: Active Orders 24 hr Category Date Time Status Clean Catch Urine Specimen STAT Care 06/26/17 20:53 Active IV Insertion STAT Care 06/26/17 20:44 Active AMYLASE Stat Lab 06/26/17 20:35 Completed CBC W DIFF Stat Lab 06/26/17 20:35 Completed CMP Stat Lab 06/26/17 20:35 Completed LIPASE Stat Lab 06/26/17 20:35 Completed MAGNESIUM Stat Lab 06/26/17 20:35 Completed Manual Differential NC Stat Lab 06/26/17 20:35 Completed UA W/RFX UR CULTURE Stat Lab 06/26/17 20:30 Completed Medication Summary Discontinued Medications Generic Name Dose Route Start Last Admin Trade Name Freq PRN Reason Stop Dose Admin Hydromorphone HCl 2 mg 06/26/17 20:46 06/26/17 21:01 Hydromorphone 1 Mg/Ml Ampule IV 06/26/17 20:47 2 mg STAT ONE Administration Hydromorphone HCl Confirm 06/26/17 20:55 Hydromorphone 1 Mg/Ml Ampule Administered 06/26/17 20:56 Dose 2 mg .ROUTE .STK-MED ONE Hydromorphone HCl 1 mg 06/26/17 22:32 06/26/17 22:46 Hydromorphone 1 Mg/Ml Ampule IV 06/26/17 22:33 1 mg STAT ONE Administration Hydromorphone HCl Confirm 06/26/17 22:41 Hydromorphone 1 Mg/Ml Ampule Administered 06/26/17 22:42 Dose 1 mg .ROUTE .STK-MED ONE Nitroglycerin 0.4 mg 06/26/17 20:44 06/26/17 21:01 Nitrostat 0.4 Mg (Ed) SL 06/26/17 20:45 0.4 mg STAT ONE Administration Nitroglycerin Confirm 06/26/17 20:54 Nitrostat 0.4 Mg (Ed) Administered 06/26/17 20:55 Dose 0.4 mg SL .STK-MED ONE Nitroglycerin 0.4 mg 06/26/17 22:32 06/26/17 22:46 Nitrostat 0.4 Mg (Ed) SL 06/26/17 22:33 0.4 mg STAT ONE Administration Nitroglycerin Confirm 06/26/17 22:41 Nitrostat 0.4 Mg (Ed) Administered 06/26/17 22:42 Dose 0.4 mg SL .STK-MED ONE Ondansetron HCl 4 mg 06/26/17 20:46 06/26/17 21:01 Zofran 4 Mg/2 Ml Vial IV 06/26/17 20:47 4 mg STAT ONE Administration Ondansetron HCl Confirm 06/26/17 20:54 Zofran 4 Mg/2 Ml Vial Administered 06/26/17 20:55 Dose 4 mg .ROUTE .STK-MED ONE Promethazine HCl 12.5 mg 06/26/17 22:32 06/26/17 22:46 Phenergan 25 Mg Inj IV 06/26/17 22:33 12.5 mg STAT ONE Administration Promethazine HCl Confirm 06/26/17 22:41 Phenergan 25 Mg Inj Administered 06/26/17 22:42 Dose 25 mg .ROUTE .STK-MED ONE Lab/Rad Data: Laboratory Result Diagrams 06/26/17 20:35 06/26/17 20:35 Laboratory Results 06/26/17 06/26/17 06/26/17 Range/Units 20:35 20:35 20:30 WBC 5.2 (4.0-10.5) K/mm3 RBC 5.12 (4.1-5.4) M/mm3 Hgb 11.1 L (12.0-16.0) gm/dl Hct 36.8 (35-47) % MCV 71.9 L (78-100) fl MCH 21.6 L (26-32) pg MCHC 30.2 L (32-36) g/dl RDW 19.2 H (11.5-14.0) % Plt Count 254 (150-450) K/mm3 MPV 11.0 H (6-9.5) fl Segmented Neutrophils 64 (36.0-66.0) % Lymphocytes (Manual) 28 (24-44) % Monocytes (Manual) 6 (0.0-12.0) % Eosinophils (Manual) 2 (0.00-3.0) % Differential Comment ABNORMAL Platelet Estimate NORMAL (NORMAL) Poikilocytosis 1+ Anisocytosis 1+ Sodium 139 (136-145) mEq/L Potassium 3.9 (3.5-5.1) mEq/L Chloride 103 (98-107) mEq/L Carbon Dioxide 28.1 (21-32) mEq/L Anion Gap 12.1 (5-15) MEQ/L BUN 13 (9-20) mg/dL Creatinine 1.24 (0.55-1.30) mg/dl Estimated GFR 46 ML/MIN Glucose 111 H (70-110) MG/DL Calcium 9.5 (8.5-10.1) mg/dL Magnesium 1.9 (1.8-2.4) mg/dL Total Bilirubin 0.30 (0.2-1.0) mg/dL AST 16 (15-37) U/L ALT 13 (12-78) U/L Alkaline Phosphatase 127 H (46-116) U/L Serum Total Protein 8.1 (6.4-8.2) gm/dL Albumin 3.4 (3.4-5.0) g/dL Amylase 82 (25-115) U/L Lipase 185 (73-393) U/L Ur Collection Type CLEAN CATCH Urine Color YELLOW (YELLOW) Urine Appearance CLEAR (CLEAR) Urine pH 6.0 (5-6) Ur Specific [place] 1.010 (1.005-1.025) Urine Protein NEGATIVE (Negative) Urine Ketones NEGATIVE (NEGATIVE) Urine Blood NEGATIVE (0-5) Camron/ul Urine Nitrite NEGATIVE (NEGATIVE) Urine Bilirubin NEGATIVE (NEGATIVE) Urine Urobilinogen NORMAL (0-1) mg/dL Ur Leukocyte Esterase NEGATIVE (NEGATIVE) Urine Glucose NEGATIVE (NEGATIVE) mg/dL Specimen Received 06/26/17:2029 - Departure Time of Disposition: 23:14 Departure Disposition: Home Clinical Impression: HEADACHE, HTN Condition: Stable Critical Care Time: No Referrals: JOON WALKER MD [Primary Care Provider] - Instructions: Headache Additional Instructions: FOLLOW UP WITH PRIVATE DOCTOR TOMORROW.
[2017-06-26 20:54] LABS: Mean Cell Volume 71.9 fl (78-100); Platelet Count 254 K/mm3 (150-450); Red Blood Count 5.12 M/mm3 (4.1-5.4); Red Cell Distribution Width 19.2 % (11.5-14.0); White Blood Count 5.2 K/mm3 (4.0-10.5)
[2017-06-26 20:54] LABS: ADD URINE CULTURE? NO (NO); Bilirubin NEGATIVE (NEGATIVE); Blood NEGATIVE Ery/ul (0-5); COMPLETE URINE MICROSCOPIC? NO; Collection Type CLEAN CATCH; Glucose NEGATIVE (NEGATIVE); Leukocyte Esterase NEGATIVE (NEGATIVE)
[2017-06-26] MEDS ORDERED: Zofran 4 MG/2 ML VIAL ONE (20:54)
[2017-06-26] MEDS ORDERED: Hydromorphone 1 mg/ml Ampule ONE ×2 (20:55→22:41)
[2017-06-26 21:07] LABS: Mean Corpuscular Hemoglobin 21.6 pg (26-32)
[2017-06-26 21:13] LABS: ALBUMIN 3.4 g/dL (3.4-5.0); ANION GAP 12.1 MEQ/L (5-15); BILIRUBIN,TOTAL 0.3 mg/dL (0.2-1.0); Carbon Dioxide 28.1 mEq/L (21-32); MAGNESIUM 1.9 mg/dL (1.8-2.4); Potassium 3.9 mEq/L (3.5-5.1); Total Protein 8.1 gm/dL (6.4-8.2)
[2017-06-26 22:12] LABS: Eosinophil 2 % (0.00-3.0); Platelet Estimate NORMAL (NORMAL); Total Cells Counted 100
[2017-06-26 22:13] LABS: ANISOCYTOSIS 1+; Poikilocytosis 1+
[2017-06-26] MEDS ORDERED: Phenergan 25 MG INJ IV ONE (22:32)
[2017-06-26] MEDS ORDERED: Phenergan 25 MG INJ ONE (22:41)
[2017-06-26 22:56] VITALS: BP 185/87; PULSE 75
[2017-06-26 23:14] VITALS: O2SAT 98
[2017-06-26] MEDS ORDERED: Nitrostat 0.4 MG Tablet SL PRN ×2 (23:14)
[2017-06-27] MEDS ORDERED: Nitrostat 0.4 MG (ED) SL ONE (03:42)
== END 2017-06-26 23:34 | disposition home or self-care (01) ==
LOC: ED 19:55
DX: R51 Headache (principal); I10 Essential (primary) hypertension
CPT/HCPCS: 36000; 36415; 80053; 81002; 82150; 83690; 83735; 85025; 96374; 96375; 96376; 99284; J1170; J2405; J2550; A9270-GY

== ENCOUNTER 2017-07-30 17:49 | Emergency (ER) | payer MEDICARE ==
[2017-07-30] MEDS ORDERED: VALIUM 10 MG/2 ML SYRINGE IM ONE (18:25)
--- NOTE | 2017-07-30 18:26 | ERPHSYRPT ---
- History of Present Illness Time Seen by Provider: 07/30/17 18:11 Source: patient Exam Limitations: no limitations Patient Subjective Stated Complaint: pt fell in shower,she thinsk she slipped, but states that her knees are giving out on her.pt co pain shooting down to right leg, which is on and off for her chronicly,neck pain. Triage Nursing Assessment: pt arrived per able to transfer from to bed with out difficulty, alert, resp easy, moves all ext, pt has long hx of chronic pain. pt also states she thinsk she is having a panic attack. pt calm except when she moves she groans Physician History: The patient is a 62-year-old female with chronic pain syndrome complaining of right-sided back pain from the neck down to her buttocks after she slipped in the bathtub today. She did catch herself before she fell that this caused her to strain her back. She states that her anxiety now is acting up. Her past medical history is significant for back surgery, chronic pain, hepatitis C, diabetes, hypertension, right sided sciatica anxiety, . Occurred: just prior to arrival Reason for Fall: slipped, fell from standing pos Injuries/Pain Location: back Loss of Consciousness: no loss of consciousness Quality: aching Severity of Pain-Max: moderate Severity of Pain-Current: moderate Modifying Factors: Improves With: nothing Associated Symptoms (Fall): back pain Allergies/Adverse Reactions: ibuprofen Allergy (Verified 07/30/17 18:03) NSAIDS (Non-Steroidal Anti-Inflamma Allergy (Verified 07/30/17 18:03) Penicillins Allergy (Verified 07/30/17 18:03) Home Medications: Meclizine HCl 25 mg [Antivert 25 mg] 25 mg PO TIDPRN PRN 03/28/16 [History ] Oxycodone HCl 10 mg PO DAILY PRN PRN 03/28/16 [History] PANTOPRAZOLE 40 mg Tablet [Protonix 40MG Tablet] 40 mg PO DAILY 03/28/16 [ History] Tizanidine HCl 4 mg [Zanaflex 4 MG] 4 mg PO TIDPRN PRN 03/28/16 [History] Atorvastatin Calcium 40 mg PO DAILY 03/29/16 [History] Lorazepam 0.5 mg [Ativan 0.5 MG] 0.5 mg PO HS 03/29/16 [History] Gabapentin [Neurontin] 900 mg PO TID 04/10/17 [History] Trazodone HCl 100 mg PO HS 04/10/17 [History] Oxycodone HCl Cr 20 mg [Oxycontin 20 MG ER] 20 mg PO BID 04/11/17 [History ] Hx Tetanus, Diphtheria Vaccination/Date Given: Yes Hx Influenza Vaccination/Date Given: No Hx Pneumococcal Vaccination/Date Given: Yes Immunizations Up to Date: Yes - Review of Systems Constitutional: No Fever, No Chills Eyes: No Symptoms Ears, Nose, & Throat: No Symptoms Respiratory: No Cough, No Dyspnea Cardiac: No Chest Pain, No Edema, No Syncope Abdominal/Gastrointestinal: No Abdominal Pain, No Nausea, No Vomiting, No Diarrhea Genitourinary Symptoms: No Dysuria Musculoskeletal: Back Pain, Fall, Injury Skin: No Rash Neurological: No Dizziness, No Focal Weakness, No Sensory Changes Psychological: Anxiety Endocrine: No Symptoms Immunological/Allergic: No Symptoms All Other Systems: Reviewed and Negative - Past Medical History Pertinent Past Medical History: Yes Neurological History: Migraines, TIA ENT History: No Pertinent History Cardiac History: Coronary Artery Disease, Hypertension Respiratory History: COPD Endocrine Medical History: Diabetes Type II Musculoskeletal History: Arthritis GI Medical History: Cirrhosis, GERD, Hemorrhoids, Hepatitis, Ulcer History: Other Psycho-Social History: Anxiety Female Reproductive Disorders: No Pertinent History Other Medical History: chronic pain,anemia 10.6 - Past Surgical History Past Surgical History: Yes Cardiac: CABG, Cardiac Catheterization, Cardiac Stent Respiratory: No Pertinent History Gastrointestinal: Appendectomy, Cholecystectomy Genitourinary: No Pertinent History Musculoskeletal: Joint Replacement, Orthopedic Surgery Female Surgical History: Hysterectomy Other Surgical History: Bilateral SHOULDERS, RIGHT KNEE, BACK,left knee - Social History Smoking Status: Current some day smoker How long have you smoked: 50 Exposure to second hand smoke: Yes Drug Use: none Patient Lives Alone: No - Female History Hx Last Menstrual Period: post - Nursing Vital Signs Nursing Vital Signs: Initial Vital Signs Temperature 97.0 F 07/30/17 17:52 Pulse Rate 85 07/30/17 17:52 Respiratory Rate 16 07/30/17 17:52 Blood Pressure 132/67 07/30/17 17:52 O2 Sat by Pulse Oximetry 98 07/30/17 17:52 Pain Scale Pain Intensity 10 - [place] Coma Score Best Eye Response (Pradip): (4) open spontaneously Best Verbal Response (Pradip): (5) oriented Best Motor Response (Pradip): (6) obeys commands Pradip Total: 15 - Physical Exam General Appearance: mild distress Head Injury: no evidence of injury Eye Exam: PERRL/EOMI ENT Exam: airway nml Neck Exam: full range of motion, tenderness Respiratory/Chest Exam: normal breath sounds, No chest tenderness, No respiratory distress Cardiovascular Exam: normal heart sounds, regular rate/rhythm Gastrointestinal Exam: soft, No tenderness, No distention, No guarding, No ecchymosis Back Exam: decreased range of motion, muscle spasm (right paraspinous) Extremity Exam: normal inspection, normal range of motion, pelvis stable, No deformities Neurologic Exam: alert, oriented x 3, cooperative, sensation nml, No motor deficits Skin Exam: normal color, warm, dry SpO2 Interpretation: normal SpO2: 98 Oxygen Delivery: Room Air - Progress Progress: improved - Departure Time of Disposition: 18:31 Departure Disposition: Home Clinical Impression: Strain of back, Anxiety Condition: Stable Critical Care Time: No Referrals: JOON RABAGO MD [Primary Care Provider] - Additional Instructions: You have strained your back especially on the right side. You were given a IM injection of Valium 10 mg to help ease the muscle spasm. The Valium will also help with your anxiety. You can take 8 mg of tizanidine every 8 hours as needed. Continue with your other medicines as directed. Follow-up with Dr. Rabago within the next few days.
[2017-07-30] MEDS ORDERED: VALIUM 10 MG/2 ML SYRINGE ONE (18:35)
[2017-07-30 18:53] VITALS: PULSE 83
[2017-07-30 19:05] VITALS: BP 99/58; O2SAT 97
== END 2017-07-30 19:06 | disposition home or self-care (01) ==
LOC: ED 17:49
DX: S39.012A Strain of muscle, fascia and tendon of lower back, initial encounter (principal); F41.9 Anxiety disorder, unspecified; W18.2XXA Fall in (into) shower or empty bathtub, initial encounter; Y93.E1 Activity, personal bathing and showering; Z79.899 Other long term (current) drug therapy; Z86.73 Personal history of transient ischemic attack (TIA), and cerebral infarction without residual deficits; I25.10 Atherosclerotic heart disease of native coronary artery without angina pectoris; I10 Essential (primary) hypertension; E11.9 Type 2 diabetes mellitus without complications; Z79.891 Long term (current) use of opiate analgesic
CPT/HCPCS: 96372; 99284; J3360

== ENCOUNTER 2017-09-20 13:28 | Emergency (ER) | payer MEDICARE ==
[2017-09-20 13:51] VITALS: BP 142/98; PULSE 88; O2SAT 95
[2017-09-20] MEDS ORDERED: XYLOCAINE 1% HCL 20 ML MDV ONE (14:10)
--- NOTE | 2017-09-20 14:16 | ERPHSYRPT ---
- History of Present Illness Time Seen by Provider: 09/20/17 14:11 Source: patient Exam Limitations: no limitations Patient Subjective Stated Complaint: pt states she got dizzy at home due to b/p and fell into radiator that heats her home, pt co pain to left hand Triage Nursing Assessment: pt has c shape laceration to left thumb and skin tear to left hand, denies any other injury, no bleeding noted Physician History: Pt. loss balance then tried grabbing radiator resulting in injury/lac to her L hand. Pt. with 2 cm lac to L thumb area distal to DIP joint on dorsal surface. Pt. able to move fingers without difficulty. No paresthesias or weakness of finger was noted. Tetanus Occurred: just prior to arrival Method of Injury: fell Quality: intermittent, aching Severity of Pain-Max: mild Severity of Pain-Current: mild Extremities Pain Location: thumb: left (lac/pain to area) Modifying Factors: Improves With: immobilization (improves), movement (worsens) Associated Symptoms: none Allergies/Adverse Reactions: ibuprofen Allergy (Verified 09/20/17 13:53) NSAIDS (Non-Steroidal Anti-Inflamma Allergy (Verified 09/20/17 13:53) Penicillins Allergy (Verified 09/20/17 13:53) Home Medications: Meclizine HCl 25 mg [Antivert 25 mg] 25 mg PO TIDPRN PRN 03/28/16 [History ] Oxycodone HCl 10 mg PO DAILY PRN PRN 03/28/16 [History] PANTOPRAZOLE 40 mg Tablet [Protonix 40MG Tablet] 40 mg PO DAILY 03/28/16 [ History] Tizanidine HCl 4 mg [Zanaflex 4 MG] 4 mg PO TIDPRN PRN 03/28/16 [History] Atorvastatin Calcium 40 mg PO DAILY 03/29/16 [History] Lorazepam 0.5 mg [Ativan 0.5 MG] 0.5 mg PO HS 03/29/16 [History] Gabapentin [Neurontin] 900 mg PO TID 04/10/17 [History] Trazodone HCl 100 mg PO HS 04/10/17 [History] Oxycodone HCl Cr 20 mg [Oxycontin 20 MG ER] 20 mg PO BID 04/11/17 [History ] Hx Tetanus, Diphtheria Vaccination/Date Given: Yes (3 years ago) Hx Influenza Vaccination/Date Given: No Hx Pneumococcal Vaccination/Date Given: Yes Immunizations Up to Date: Yes - Review of Systems Constitutional: No Fever, No Chills Eyes: No Symptoms Ears, Nose, & Throat: No Symptoms Respiratory: No Cough, No Dyspnea Cardiac: No Chest Pain, No Edema, No Syncope Abdominal/Gastrointestinal: No Abdominal Pain, No Nausea, No Vomiting, No Diarrhea Genitourinary Symptoms: No Dysuria Musculoskeletal: Fall, Injury (Lac to L thumb), No Back Pain, No Neck Pain Skin: No Rash Neurological: No Dizziness, No Focal Weakness, No Sensory Changes Psychological: No Symptoms Endocrine: No Symptoms All Other Systems: Reviewed and Negative - Past Medical History Pertinent Past Medical History: Yes Neurological History: Migraines, TIA ENT History: No Pertinent History Cardiac History: Coronary Artery Disease, Hypertension Respiratory History: COPD Endocrine Medical History: Diabetes Type II Musculoskeletal History: Arthritis GI Medical History: Cirrhosis, GERD, Hemorrhoids, Hepatitis, Ulcer History: Other Psycho-Social History: Anxiety Female Reproductive Disorders: No Pertinent History Other Medical History: chronic pain,anemia 10.6, hepatitis c- went [facility] - Past Surgical History Past Surgical History: Yes Cardiac: CABG, Cardiac Catheterization, Cardiac Stent Respiratory: No Pertinent History Gastrointestinal: Appendectomy, Cholecystectomy Genitourinary: No Pertinent History Musculoskeletal: Joint Replacement, Orthopedic Surgery Female Surgical History: Hysterectomy Other Surgical History: Bilateral SHOULDERS, BACK,left knee - Social History Smoking Status: Current every day smoker How long have you smoked: 50 Exposure to second hand smoke: Yes Drug Use: none Patient Lives Alone: No - Female History Hx Last Menstrual Period: post - Nursing Vital Signs Nursing Vital Signs: Initial Vital Signs Temperature 97.0 F 09/20/17 13:47 Pulse Rate 88 09/20/17 13:47 Respiratory Rate 16 09/20/17 13:47 Blood Pressure 142/98 09/20/17 13:47 O2 Sat by Pulse Oximetry 95 09/20/17 13:47 Pain Scale Pain Intensity 4 - Physical Exam General Appearance: alert Eyes, Ears, Nose, Throat Exam: moist mucous membranes Neck Exam: non-tender, supple Cardiovascular/Respiratory Exam: chest non-tender, normal breath sounds, regular rate/rhythm, no respiratory distress Abdominal Exam: non-tender, No guarding Back Exam: normal inspection, No vertebral tenderness Shoulder Exam: normal inspection Elbow/Forearm Exam: normal inspection Wrist Exam: normal inspection Hand Exam: normal ROM, laceration (2 cm lac deep to SQ layer, moving L thumb without difficulty, neurovascularly intact) Neuro/Tendon Exam: normal sensation, normal motor functions, normal tendon functions Mental Status Exam: alert, oriented x 3, cooperative Skin Exam: normal color, warm, dry SpO2: 95 Oxygen Delivery: Room Air Procedures - Laceration/Wound Repair Left Hand Wound Location: Left, hand Wound Length (cm): 2 Wound's Depth, Shape: superficial Wound Explored: clean Irrigated: Yes Hibiclens Prep: Yes Anesthesia: 1% Lidocaine Volume Anesthetic (ccs): 3 Wound Debrided: minimal Wound Repaired With: sutures Suture Size/Type: 5-0, nylon Number of Sutures: 5 Layer Closure?: No Sterile Dressing Applied?: Yes Splint Applied?: Yes Type of Splint Applied: Finger Splint Sling Applied?: No - Course Nursing assessment & vital signs reviewed: Yes - Radiology Exams Left Hand X-ray Interpretation: Teleradiologist Report, Negative, No Fracture Ordered Tests: Active Orders 24 hr Category Date Time Status HAND (MINIMUM 3 VIEWS) Stat Exams 09/20/17 13:55 Completed Medication Summary Discontinued Medications Generic Name Dose Route Start Last Admin Trade Name Luz Maria PRN Reason Stop Dose Admin Lidocaine HCl Confirm 09/20/17 14:10 Xylocaine 1% Hcl 20 Ml Mdv Administered 09/20/17 14:11 Dose 5 ml .ROUTE .STK-MED ONE - Progress Progress: improved Counseled pt/family regarding: diagnosis - Departure Time of Disposition: 14:53 Departure Disposition: Home Clinical Impression: Laceration of left thumb Condition: Stable Critical Care Time: No Referrals: JOON RABAGO MD [Primary Care Provider] - Instructions: Finger Fracture Additional Instructions: May use Tylenol for pain. Sutures may be removed in 10-14 days. Return for worse swelling, pain, numbness, tingling, weakness of finger or any problems.
--- NOTE | 2017-09-20 14:18 | XRAY ---
Indication: Pain following fall. First digit laceration. Comparison: None 3 views of the left hand demonstrates mild osteopenia and moderate degenerative changes of the first metacarpal multangular articulation. No other bony, articular, or soft tissue abnormalities.
[2017-09-20] MEDS ORDERED: BACIGUENT PACKET ONE (14:53)
[2017-09-20] MEDS ORDERED: BACIGUENT PACKET TP ONE (15:09)
== END 2017-09-20 15:13 | disposition home or self-care (01) ==
LOC: ED 13:28
PROC: 0HQGXZZ Repair Left Hand Skin, External Approach (ICD-10-PCS; principal; 2017-09-20)
DX: S61.012A Laceration without foreign body of left thumb without damage to nail, initial encounter (principal); W01.198A Fall on same level from slipping, tripping and stumbling with subsequent striking against other object, initial encounter
CPT/HCPCS: 12001; 73130; 99283; A9270-GY

== ENCOUNTER 2017-12-11 18:14 | Emergency (ER) | payer MEDICARE ==
--- NOTE | 2017-12-11 19:04 | ERPHSYRPT ---
- History of Present Illness Time Seen by Provider: 12/11/17 19:00 Source: patient Exam Limitations: no limitations Patient Subjective Stated Complaint: cough, congestion, nasal drainage Triage Nursing Assessment: pt to er c/o cough, congestin, nasal drainage that has progressed to green in color, fever at home, afebrile at this time, denies taking any medication Physician History: Pt has been c/o productive cough, green phlegm, chest soreness, when coughing, fever, chills, nausea x 2 days. She denies vomiting, diarrhea, hives, severe chest pain, or shortness of breath. She has not been using inhalers no recent antibiotics. Timing/Duration: day(s) (2) Cough Quality/Degree: mild, productive cough Possible Cause: occasional episodes Modifying Factors: Improves With: nothing Associated Symptoms: fever, chills, chest pain/soreness, cough Allergies/Adverse Reactions: ibuprofen Allergy (Verified 12/11/17 18:50) NSAIDS (Non-Steroidal Anti-Inflamma Allergy (Verified 12/11/17 18:50) Penicillins Allergy (Verified 12/11/17 18:50) Home Medications: Meclizine HCl 25 mg [Antivert 25 mg] 25 mg PO TIDPRN PRN 03/28/16 [History ] Oxycodone HCl 10 mg PO DAILY PRN PRN 03/28/16 [History] PANTOPRAZOLE 40 mg Tablet [Protonix 40MG Tablet] 40 mg PO DAILY 03/28/16 [ History] Tizanidine HCl 4 mg [Zanaflex 4 MG] 4 mg PO TIDPRN PRN 03/28/16 [History] Atorvastatin Calcium 40 mg PO DAILY 03/29/16 [History] Lorazepam 0.5 mg [Ativan 0.5 MG] 0.5 mg PO HS 03/29/16 [History] Gabapentin [Neurontin] 900 mg PO TID 04/10/17 [History] Trazodone HCl 100 mg PO HS 04/10/17 [History] Oxycodone HCl Cr 20 mg [Oxycontin 20 MG ER] 20 mg PO BID 04/11/17 [History ] Hx Tetanus, Diphtheria Vaccination/Date Given: No Hx Influenza Vaccination/Date Given: No Hx Pneumococcal Vaccination/Date Given: No Immunizations Up to Date: No - Review of Systems Constitutional: Fever, Chills Ears, Nose, & Throat: Nose Congestion, Sinus Drainage, Throat Pain, No Throat Swelling Respiratory: Cough, Wheezing, No Dyspnea, No Stridor Abdominal/Gastrointestinal: Nausea, No Vomiting All Other Systems: Reviewed and Negative - Past Medical History Pertinent Past Medical History: Yes Neurological History: Migraines, TIA ENT History: Cataracts Cardiac History: Coronary Artery Disease Respiratory History: COPD Endocrine Medical History: Other Musculoskeletal History: No Pertinent History GI Medical History: Gallbladder Disease History: No Pertinent History Psycho-Social History: Anxiety, Depression Female Reproductive Disorders: No Pertinent History Other Medical History: chronic pain,anemia 10.6, hepatitis c- went thorugh treament - Past Surgical History Past Surgical History: Yes Neuro Surgical History: No Pertinent History Cardiac: CABG Respiratory: No Pertinent History Gastrointestinal: Cholecystectomy Genitourinary: No Pertinent History Musculoskeletal: Joint Replacement, Orthopedic Surgery Female Surgical History: Hysterectomy Other Surgical History: Bilateral SHOULDERS, BACK,left knee - Social History Smoking Status: Current every day smoker How long have you smoked: 52 years Exposure to second hand smoke: Yes Drug Use: none Patient Lives Alone: No - Female History Hx Now: No - Nursing Vital Signs Nursing Vital Signs: Initial Vital Signs Temperature 97.5 F 12/11/17 18:41 Pulse Rate 74 12/11/17 18:41 Respiratory Rate 20 12/11/17 18:41 Blood Pressure 97/68 12/11/17 18:41 O2 Sat by Pulse Oximetry 96 12/11/17 18:41 Pain Scale Pain Intensity 0 - Physical Exam General Appearance: no apparent distress Eye Exam: PERRL/EOMI Ears, Nose, Throat Exam: normal ENT inspection, TMs normal, pharynx normal, moist mucous membranes Neck Exam: normal inspection, non-tender, supple, No JVD, No lymphadenopathy Respiratory Exam: airway intact, rhonchi (scattered bilat.), No chest tenderness , No respiratory distress Cardiovascular Exam: regular rate/rhythm, normal heart sounds, normal peripheral pulses, No murmur Gastrointestinal/Abdomen Exam: soft, normal bowel sounds, No tenderness Back Exam: normal inspection, No CVA tenderness Extremity Exam: normal inspection, No calf tenderness, No dulce's sign Neurologic Exam: alert, oriented x 3, normal mood/affect Skin Exam: normal color, warm, dry, No rash Lymphatic Exam: No adenopathy SpO2 Interpretation: normal SpO2: 96 Oxygen Delivery: Room Air - Course Nursing assessment & vital signs reviewed: Yes EKG Interpreted by Me: RATE, NORMAL AXIS, NORMAL INTERVALS, Non-specific ST Changes Ordered Tests: Active Orders 24 hr Category Date Time Status Rocket Scientist STAT Care 12/11/17 18:57 Active EKG-ER Only STAT Care 12/11/17 18:56 Active IV Insertion STAT Care 12/11/17 18:56 Active Oxygen-ED Only NASAL CANNULA 2 lpm Care 12/11/17 18:56 Active CHEST 2 VIEWS (PA AND LAT) Stat Exams 12/11/17 18:56 Taken BLOOD CULTURE Stat Lab 12/11/17 20:00 Received CBC W DIFF Stat Lab 12/11/17 19:20 Completed CK-Creatinine Phosphokinase Stat Lab 12/11/17 19:20 Completed CMP Stat Lab 12/11/17 19:20 Completed CULTURE, THROAT Stat Lab 12/11/17 19:15 Received Lactic Acid Stat Lab 12/11/17 19:33 Completed MAGNESIUM Stat Lab 12/11/17 19:20 Completed NT PRO BNP Stat Lab 12/11/17 19:20 Completed STREP SCREEN-BETA A Stat Lab 12/11/17 19:15 Completed TROPONIN Q3H Lab 12/11/17 19:20 Completed TROPONIN Q3H Lab 12/11/17 22:00 Ordered TROPONIN Q3H Lab 12/12/17 01:00 Ordered TROPONIN Q3H Lab 12/12/17 04:00 Ordered TROPONIN Q3H Lab 12/12/17 07:00 Ordered Respiratory Nebulizer STAT RT 12/11/17 20:14 Completed Medication Summary Generic Name Dose Route Start Last Admin Trade Name Freq PRN Reason Stop Dose Admin Enoxaparin Sodium 90 mg 12/11/17 21:15 Enoxaparin Sodium 1 mg/kg (90 mg) 01/10/18 21:14 SQ Q12H RANDY Levofloxacin/Dextrose 750 mg in 150 mls @ 100 mls/hr 12/11/17 19:53 12/11/17 20:11 Levofloxacin 750mg/150ml D5w IV 12/11/17 21:22 100 mls/hr STAT STA Administration Sodium Chloride 1,000 mls @ 100 mls/hr 12/11/17 21:15 Sodium Chloride 0.9% 1000 Ml IV 01/10/18 21:14 .Q10H RANDY Discontinued Medications Generic Name Dose Route Start Last Admin Trade Name Luz Maria PRN Reason Stop Dose Admin Albuterol/Ipratropium 3 ml 12/11/17 20:14 12/11/17 20:37 Duoneb 0.5-3 Mg/3 Ml Neb IH 12/11/17 20:15 3 ml STAT ONE Administration Albuterol/Ipratropium Confirm 12/11/17 20:36 Duoneb 0.5-3 Mg/3 Ml Neb Administered 12/11/17 20:37 Dose 3 ml IH .STK-MED ONE Aspirin 325 mg 12/11/17 20:57 Ecotrin 325 Mg PO 12/11/17 20:58 NOW ONE Levofloxacin/Dextrose Confirm 12/11/17 19:55 Levofloxacin 750mg/150ml D5w Administered 12/11/17 19:56 Dose 750 mg in 150 mls @ ud IV .STK-MED ONE Oxycodone HCl 20 mg 12/11/17 20:53 Oxycontin 20 Mg Er PO 12/11/17 20:54 NOW ONE Lab/Rad Data: Laboratory Result Diagrams 12/11/17 19:20 12/11/17 19:20 Laboratory Results 12/11/17 12/11/17 12/11/17 Range/Units 19:33 19:20 19:20 WBC (4.0-10.5) K/mm3 RBC (4.1-5.4) M/mm3 Hgb (12.0-16.0) gm/dl Hct (35-47) % MCV (78-100) fl MCH (26-32) pg MCHC (32-36) g/dl RDW (11.5-14.0) % Plt Count (150-450) K/mm3 MPV (6-9.5) fl Gran % (36.0-66.0) % Lymphocytes % (24.0-44.0) % Monocytes % (0.0-12.0) % Eosinophils % (0.00-5.0) % Basophils % (0.0-0.4) % Basophils # (0-0.4) Sodium 138 (136-145) mEq/L Potassium 4.1 (3.5-5.1) mEq/L Chloride 102 (98-107) mEq/L Carbon Dioxide 30.1 (21-32) mEq/L Anion Gap 10.1 (5-15) MEQ/L BUN 21 H (9-20) mg/dL Creatinine 1.65 H (0.55-1.30) mg/dl Estimated GFR 33 ML/MIN Glucose 102 (70-110) MG/DL Lactic Acid 1.1 (0.4-2.0) Calcium 9.2 (8.5-10.1) mg/dL Magnesium 2.3 (1.8-2.4) mg/dL Total Bilirubin 0.60 (0.2-1.0) mg/dL AST 23 (15-37) U/L ALT 13 (12-78) U/L Alkaline Phosphatase 92 (46-116) U/L Creatine Kinase 106 (26-192) U/L Troponin I 0.179 H* (0.000-0.056) ng/ml NT-Pro-B Natriuret Pep 4750 H (0-125) pg/ml Serum Total Protein 8.1 (6.4-8.2) gm/dL Albumin 3.2 L (3.4-5.0) g/dL Influenza Type A Ag (NEGATIVE) Influenza Type B Ag (NEGATIVE) RSV (PCR) (Negative) Streptococcus Screen (Negative) 12/11/17 12/11/17 12/11/17 Range/Units 19:20 19:15 19:15 WBC 8.8 (4.0-10.5) K/mm3 RBC 4.86 (4.1-5.4) M/mm3 Hgb 11.8 L (12.0-16.0) gm/dl Hct 39.2 (35-47) % MCV 80.7 (78-100) fl MCH 24.2 L (26-32) pg MCHC 30.1 L (32-36) g/dl RDW 17.8 H (11.5-14.0) % Plt Count 210 (150-450) K/mm3 MPV 11.0 H (6-9.5) fl Gran % 68.0 H (36.0-66.0) % Lymphocytes % 22.4 L (24.0-44.0) % Monocytes % 7.9 (0.0-12.0) % Eosinophils % 1.5 (0.00-5.0) % Basophils % 0.2 (0.0-0.4) % Basophils # 0.02 (0-0.4) Sodium (136-145) mEq/L Potassium (3.5-5.1) mEq/L Chloride (98-107) mEq/L Carbon Dioxide (21-32) mEq/L Anion Gap (5-15) MEQ/L BUN (9-20) mg/dL Creatinine (0.55-1.30) mg/dl Estimated GFR ML/MIN Glucose (70-110) MG/DL Lactic Acid (0.4-2.0) Calcium (8.5-10.1) mg/dL Magnesium (1.8-2.4) mg/dL Total Bilirubin (0.2-1.0) mg/dL AST (15-37) U/L ALT (12-78) U/L Alkaline Phosphatase (46-116) U/L Creatine Kinase (26-192) U/L Troponin I (0.000-0.056) ng/ml NT-Pro-B Natriuret Pep (0-125) pg/ml Serum Total Protein (6.4-8.2) gm/dL Albumin (3.4-5.0) g/dL Influenza Type A Ag NEGATIVE (NEGATIVE) Influenza Type B Ag NEGATIVE (NEGATIVE) RSV (PCR) NEGATIVE (Negative) Streptococcus Screen NEGATIVE (Negative) - Progress Progress: improved Air Movement: fair Progress Note: 12/11/17 21:17 Chest X ray: LLL infiltrate, troponin elevated, results and patient's condition discussed with Dr De León ( covering for Dr Diop), she suggested to transfer patient to [facility] for cardiology consult, I called Dr Ortega at [facility], Brittny Watson, discussed this case in details, he agreed to transfer her, pt was informed about all risks and benefits of this transfer, she agreed. She has been stable and pain free, O2 sat: 95% on 2 l/min NC She was started on iv NS, Levaquin ASA and Lovenox SQ given. Discussed with : Sarthak Will see patient in: other (requests transfer) - Departure Time of Disposition: 21:20 Departure Disposition: Transfer Clinical Impression: Elevated troponin Pneumonia Qualifiers: Pneumonia type: due to unspecified organism Laterality: left Lung location: lower lobe of lung Qualified Code(s): J18.1 - Lobar pneumonia, unspecified organism Condition: Stable Critical Care Time: No Referrals: JOON DIOP MD [Primary Care Provider] -
[2017-12-11 19:25] LABS: BASOPHIL % 0.2 % (0.0-0.4); Basophil (Absolute #) 0.02 (0-0.4); Eosinophil % 1.5 % (0.00-5.0); Eosinophil (Absolute #) 0.13 (0-0.5); Granulocyte Absolute (ANC) 5.99 (1.4-6.9); Hematocrit 39.2 % (35-47); Hemoglobin 11.8 gm/dl (12.0-16.0); Lymphocyte (Absolute #) 1.98 (1.0-4.6); Lymphocytes % 22.4 % (24.0-44.0); Mean Cell Volume 80.7 fl (78-100); Mean Corpuscular Hgb Concent. 30.1 g/dl (32-36); Monocytes % 7.9 % (0.0-12.0); Platelet Count 210 K/mm3 (150-450); Red Blood Count 4.86 M/mm3 (4.1-5.4); Red Cell Distribution Width 17.8 % (11.5-14.0); White Blood Count 8.8 K/mm3 (4.0-10.5)
[2017-12-11 19:35] LABS: Mean Corpuscular Hemoglobin 24.2 pg (26-32)
[2017-12-11] MEDS ORDERED: LEVOFLOXACIN 750MG/150ML D5W 750 MG/150 ML BAG IV STA (19:53)
[2017-12-11] MEDS ORDERED: LEVOFLOXACIN 750MG/150ML D5W 750 MG/150 ML BAG IV ONE (19:55)
[2017-12-11] MEDS ORDERED: DUONEB 0.5-3 MG/3 ml Neb IH ONE ×2 (20:14→20:36)
[2017-12-11 20:15] LABS: INFLUENZA A NEGATIVE (NEGATIVE); INFLUENZA B NEGATIVE (NEGATIVE); RESPIRATORY SYNCTIAL VIRUS NEGATIVE (Negative)
[2017-12-11 20:16] LABS: ALBUMIN 3.2 g/dL (3.4-5.0); ANION GAP 10.1 MEQ/L (5-15); BILIRUBIN,TOTAL 0.6 mg/dL (0.2-1.0); Calcium 9.2 mg/dL (8.5-10.1); Carbon Dioxide 30.1 mEq/L (21-32); Creatinine 1 1.65 mg/dl (0.55-1.30); Potassium 4.1 mEq/L (3.5-5.1); Total Protein 8.1 gm/dL (6.4-8.2)
[2017-12-11] MEDS ORDERED: Oxycontin 20 MG ER PO ONE (20:53)
[2017-12-11] MEDS ORDERED: Ecotrin 325 MG PO ONE (20:57)
[2017-12-11] MEDS ORDERED: ENOXAPARIN SODIUM SQ SCH (21:15)
[2017-12-11] MEDS ORDERED: Sodium Chloride 0.9% 1000 ML 1,000 ML IV SCH (21:15)
[2017-12-11 21:22] VITALS: O2SAT 96
[2017-12-11] MEDS ORDERED: ENOXAPARIN SODIUM SQ ONE (21:22)
[2017-12-11] MEDS ORDERED: Sodium Chloride 0.9% 1000 ML 1,000 ML ONE (21:22)
[2017-12-11] MEDS ORDERED: BABY ASPIRIN 81 MG CHEW PO ONE (21:32)
[2017-12-11 22:13] VITALS: BP 104/68; PULSE 80
--- NOTE | 2017-12-12 08:39 | XRAY ---
Indication: Cough. Comparison: April 09, 2017. PA/lateral chest demonstrates new left infrahilar infiltrate/atelectasis. Stable right mid lung fibrosis/scarring. Heart is not enlarged again demonstrating previous CABG surgery. Bony thorax intact again with mild osteopenia and bilateral shoulder arthroplasty. Impression: New left infrahilar infiltrate/atelectasis. Correlate clinically.
== END 2017-12-11 22:23 | disposition short-term general hospital (02) ==
LOC: ED 18:14
DX: R79.89 Other specified abnormal findings of blood chemistry (principal); J18.1 Lobar pneumonia, unspecified organism; F17.200 Nicotine dependence, unspecified, uncomplicated; Z79.899 Other long term (current) drug therapy; Z86.73 Personal history of transient ischemic attack (TIA), and cerebral infarction without residual deficits; I25.810 Atherosclerosis of coronary artery bypass graft(s) without angina pectoris; J44.9 Chronic obstructive pulmonary disease, unspecified; F41.8 Other specified anxiety disorders
CPT/HCPCS: 36000; 36415; 71046; 80053; 82550; 83605; 83735; 83880; 84484; 85025; 87040; 87070; 87430; 87631; 93005; 93041; 94640; 96360; 96365; 99285; J1650; J1956; A9270-GY

== ENCOUNTER 2017-12-28 14:40 | Emergency (ER) | payer MEDICARE ==
[2017-12-28] MEDS ORDERED: Hydromorphone 1 mg/ml Ampule IV ONE ×2 (14:59→15:59)
[2017-12-28] MEDS ORDERED: LOPRESSOR 5 MG/5 ML INJECTION IV ONE ×4 (14:59→16:03)
[2017-12-28] MEDS ORDERED: APRESOLINE 20 MG/ML INJ IV ONE ×2 (15:00→15:59)
[2017-12-28] MEDS ORDERED: Sodium Chloride 0.9% 500 ML 500 ML IV SCH (15:00)
--- NOTE | 2017-12-28 15:07 | ERPHSYRPT ---
- History of Present Illness Time Seen by Provider: 12/28/17 14:46 Source: patient Patient Subjective Stated Complaint: pt reports going for a stress test this morning at [place] [facility]-afterwards was feeling slight headache-ate lunch with family and then on ride back to [place] began having severe headache-denies sob- denies unusual numbnes sor tinlging Triage Nursing Assessment: pt presents to er warm and dry-no resp distress ntoed -self transfer with no difficutly-speaking in complete sentences with ease- right radial pulse regular-pupils responsive Physician History: CC: headache Hx: 62 y/o patient of Dr Rabago with headache. She has HTN. She had chemical stress test this AM at [facility]. Her BP was high when it started and she had to do breathing exercises to lower it. She did take her normal oxycontin, toprol xl, and lisinopril early this AM. She is no longer on regular hydralazine. She takes oxycodone for breakthru. She has no unusual chest pains. She left the stress test and went to dinner at [employer]. She began to have headache and knew her BP was elevated so she came here. She has nausea and photophobia. Timing/Duration: today Severity: severe Allergies/Adverse Reactions: ibuprofen Allergy (Verified 12/28/17 15:02) NSAIDS (Non-Steroidal Anti-Inflamma Allergy (Verified 12/28/17 15:02) Penicillins Allergy (Verified 12/28/17 15:02) Home Medications: Meclizine HCl 25 mg [Antivert 25 mg] 25 mg PO TIDPRN PRN 03/28/16 [History ] Oxycodone HCl 10 mg PO DAILY PRN PRN 03/28/16 [History] PANTOPRAZOLE 40 mg Tablet [Protonix 40MG Tablet] 40 mg PO DAILY 03/28/16 [ History] Tizanidine HCl 4 mg [Zanaflex 4 MG] 4 mg PO TIDPRN PRN 03/28/16 [History] Atorvastatin Calcium 40 mg PO DAILY 03/29/16 [History] Gabapentin [Neurontin] 900 mg PO TID 04/10/17 [History] Trazodone HCl 100 mg PO HS 04/10/17 [History] Oxycodone HCl Cr 20 mg [Oxycontin 20 MG ER] 20 mg PO BID 04/11/17 [History ] Lorazepam 0.5 mg [Ativan 0.5 MG] 0.5 mg PO UD 12/28/17 [History] Hx Tetanus, Diphtheria Vaccination/Date Given: No Hx Influenza Vaccination/Date Given: No Hx Pneumococcal Vaccination/Date Given: No Immunizations Up to Date: Yes - Review of Systems Constitutional: No Fever, No Chills Eyes: Photophobia Ears, Nose, & Throat: No Symptoms Respiratory: No Cough, No Dyspnea Cardiac: No Chest Pain Abdominal/Gastrointestinal: Nausea, No Abdominal Pain, No Vomiting Skin: No Rash Neurological: Headache, No Focal Weakness, No Parasthesia All Other Systems: Reviewed and Negative - Past Medical History Pertinent Past Medical History: Yes Neurological History: Migraines, TIA ENT History: Cataracts Cardiac History: Coronary Artery Disease Respiratory History: COPD Endocrine Medical History: Other Musculoskeletal History: No Pertinent History GI Medical History: Gallbladder Disease History: No Pertinent History Psycho-Social History: Anxiety, Depression Female Reproductive Disorders: No Pertinent History Other Medical History: chronic pain,anemia, hepatitis c - Past Surgical History Past Surgical History: Yes Neuro Surgical History: No Pertinent History Cardiac: CABG Respiratory: No Pertinent History Gastrointestinal: Cholecystectomy Genitourinary: No Pertinent History Musculoskeletal: Joint Replacement, Orthopedic Surgery Female Surgical History: Hysterectomy Other Surgical History: Bilateral SHOULDERS, BACK,left knee - Social History Smoking Status: Current every day smoker How long have you smoked: 52 years Exposure to second hand smoke: Yes Drug Use: none Patient Lives Alone: No - Nursing Vital Signs Nursing Vital Signs: Initial Vital Signs Temperature 98.1 F 12/28/17 14:58 Pulse Rate 84 12/28/17 14:58 Respiratory Rate 18 12/28/17 14:58 Blood Pressure 188/115 12/28/17 14:58 O2 Sat by Pulse Oximetry 97 12/28/17 14:58 Pain Scale Pain Intensity 8 - Physical Exam General Appearance: alert, obese Eye Exam: PERRL/EOMI, photophobia Ears, Nose, Throat Exam: moist mucous membranes Neck Exam: normal inspection, non-tender, supple Respiratory Exam: normal breath sounds Cardiovascular Exam: regular rate/rhythm Gastrointestinal/Abdomen Exam: soft, No tenderness, No distention Extremity Exam: No calf tenderness, No pedal edema Neurologic Exam: alert, oriented x 3, cooperative, sensation nml, No motor deficits Skin Exam: warm, dry, No rash SpO2 Interpretation: normal SpO2: 97 Oxygen Delivery: Room Air - Course Nursing assessment & vital signs reviewed: Yes EKG Interpreted by Me: RATE (83), Sinus Rhythm, NORMAL AXIS, Q-wave (inferior), NORMAL ST-T Ordered Tests: Active Orders 24 hr Category Date Time Status Leather Piece Inspector STAT Care 12/28/17 14:58 Active EKG-ER Only STAT Care 12/28/17 14:59 Active IV Insertion STAT Care 12/28/17 14:57 Active Pulse Oximetry (ED) STAT Care 12/28/17 14:57 Active HEAD WITHOUT CONTRAST [CT] Stat Exams 12/28/17 14:58 Taken BMP Stat Lab 12/28/17 15:00 Completed CBC W DIFF Stat Lab 12/28/17 15:00 Completed Medication Summary Generic Name Dose Route Start Last Admin Trade Name Freq PRN Reason Stop Dose Admin Sodium Chloride 500 mls @ 100 mls/hr 12/28/17 15:00 12/28/17 15:13 Sodium Chloride 0.9% 500 Ml IV 01/27/18 14:59 100 mls/hr .Q5H RANDY Administration Discontinued Medications Generic Name Dose Route Start Last Admin Trade Name Freq PRN Reason Stop Dose Admin Hydralazine HCl 10 mg 12/28/17 15:00 12/28/17 15:16 Apresoline 20 Mg/Ml Inj IV 12/28/17 15:01 10 mg STAT ONE Administration Hydralazine HCl Confirm 12/28/17 15:09 Apresoline 20 Mg/Ml Inj Administered 12/28/17 15:10 Dose 20 mg .ROUTE .STK-MED ONE Hydralazine HCl 20 mg 12/28/17 15:59 12/28/17 16:05 Apresoline 20 Mg/Ml Inj IV 12/28/17 16:00 20 mg STAT ONE Administration Hydralazine HCl Confirm 12/28/17 16:03 Apresoline 20 Mg/Ml Inj Administered 12/28/17 16:04 Dose 20 mg .ROUTE .STK-MED ONE Hydromorphone HCl 1 mg 12/28/17 14:59 12/28/17 15:16 Hydromorphone 1 Mg/Ml Ampule IV 12/28/17 15:00 1 mg STAT ONE Administration Hydromorphone HCl Confirm 12/28/17 15:09 Dilaudid 2 Mg Injection Administered 12/28/17 15:10 Dose 2 mg .ROUTE .STK-MED ONE Hydromorphone HCl 1 mg 12/28/17 15:59 12/28/17 16:12 Hydromorphone 1 Mg/Ml Ampule IV 12/28/17 16:00 1 mg STAT ONE Administration Sodium Chloride Confirm 12/28/17 15:09 Sodium Chloride 0.9% 1000 Ml Administered 12/28/17 15:10 Dose 1,000 mls @ ud .ROUTE .STK-MED ONE Metoprolol Tartrate 2.5 mg 12/28/17 14:59 12/28/17 15:14 Lopressor 5 Mg/5 Ml Injection IV 12/28/17 15:00 2.5 mg STAT ONE Administration Metoprolol Tartrate Confirm 12/28/17 15:09 Lopressor 5 Mg/5 Ml Injection Administered 12/28/17 15:10 Dose 5 mg IV .STK-MED ONE Metoprolol Tartrate 2.5 mg 12/28/17 15:59 Lopressor 5 Mg/5 Ml Injection IV 12/28/17 16:00 STAT ONE Metoprolol Tartrate Confirm 12/28/17 16:03 Lopressor 5 Mg/5 Ml Injection Administered 12/28/17 16:04 Dose 5 mg IV .STK-MED ONE Lab/Rad Data: Laboratory Result Diagrams 12/28/17 15:00 12/28/17 15:00 Laboratory Results 12/28/17 12/28/17 Range/Units 15:00 15:00 WBC 5.6 (4.0-10.5) K/mm3 RBC 4.70 (4.1-5.4) M/mm3 Hgb 11.5 L (12.0-16.0) gm/dl Hct 37.3 (35-47) % MCV 79.4 (78-100) fl MCH 24.4 L (26-32) pg MCHC 30.8 L (32-36) g/dl RDW 17.8 H (11.5-14.0) % Plt Count 246 (150-450) K/mm3 MPV 11.3 H (6-9.5) fl Gran % 66.5 H (36.0-66.0) % Lymphocytes % 23.5 L (24.0-44.0) % Monocytes % 5.7 (0.0-12.0) % Eosinophils % 3.9 (0.00-5.0) % Basophils % 0.4 (0.0-0.4) % Basophils # 0.02 (0-0.4) Sodium 139 (137-145) mmol/L Potassium 3.8 (3.5-5.1) mmol/L Chloride 102 (98-107) mEq/L Carbon Dioxide 27 (22-30) mmol/L Anion Gap 13.8 (5-15) MEQ/L BUN 13 (7-17) mg/dl Creatinine 1.00 (0.52-1.04) mg/dl Estimated GFR 59 ML/MIN Glucose 98 (74-106) mg/dL Calcium 9.6 (8.4-10.2) mg/dL - Progress Progress Note: 12/28/17 16:15 CT brain: shawn 4:02 PM 12/28/2017: Stable nonacute senile brain w old L caudate lacunar infarct compared to . BP still elevated. IV metoprolol and hydralazine and dilaudid given. Await repeat dose. 12/28/17 16:19 She is feeling better. Family here. Test results discussed. Will release with instr after a period of observation post medication. Counseled pt/family regarding: lab results, diagnosis, need for follow-up, rad results - Departure Time of Disposition: 16:19 Departure Disposition: Home Clinical Impression: Headache, Hypertensive urgency Condition: Fair Critical Care Time: No Referrals: JOON RABAGO MD [Primary Care Provider] - Instructions: High Blood Pressure (DC), Headache, Adult (DC) Additional Instructions: No driving tonite and stay wtih family. Take your normal medications. Follow up with Dr Rabago next week. Return for problems or concerns.
[2017-12-28] MEDS ORDERED: APRESOLINE 20 MG/ML INJ ONE ×2 (15:09→16:03)
[2017-12-28] MEDS ORDERED: DILAUDID 2 MG INJECTION ONE (15:09)
[2017-12-28] MEDS ORDERED: Sodium Chloride 0.9% 1000 ML 0 ML ONE (15:09)
[2017-12-28] MEDS ORDERED: Sodium Chloride 0.9% 500 ML 500 ML IV ONE (15:12)
[2017-12-28 15:38] LABS: BASOPHIL % 0.4 % (0.0-0.4); Basophil (Absolute #) 0.02 (0-0.4); Eosinophil % 3.9 % (0.00-5.0); Eosinophil (Absolute #) 0.22 (0-0.5); Granulocyte Absolute (ANC) 3.73 (1.4-6.9); Granulocytes % 66.5 % (36.0-66.0); Hematocrit 37.3 % (35-47); Hemoglobin 11.5 gm/dl (12.0-16.0); Lymphocyte (Absolute #) 1.32 (1.0-4.6); Lymphocytes % 23.5 % (24.0-44.0); Mean Cell Volume 79.4 fl (78-100); Mean Corpuscular Hgb Concent. 30.8 g/dl (32-36); Mean Platelet Volume 11.3 fl (6-9.5); Monocyte (Absolute #) 0.32 (0.0-1.3); Monocytes % 5.7 % (0.0-12.0); Platelet Count 246 K/mm3 (150-450); Red Cell Distribution Width 17.8 % (11.5-14.0); White Blood Count 5.6 K/mm3 (4.0-10.5)
[2017-12-28 15:42] LABS: Mean Corpuscular Hemoglobin 24.4 pg (26-32)
[2017-12-28 16:04] LABS: ANION GAP 13.8 MEQ/L (5-15); Calcium 9.6 mg/dL (8.4-10.2); Potassium 3.8 mmol/L (3.5-5.1)
[2017-12-28 17:05] VITALS: BP 160/83; PULSE 78; O2SAT 98
--- NOTE | 2017-12-28 23:02 | XRAY ---
Indication: Headache. Hypertension. Multiple contiguous axial images obtained through the head without contrast. Comparison: April 10, 2017. Stable age-appropriate global atrophy, minimal periventricular degenerative micro-ischemia, and remote left caudate lacunar infarct. No acute intracranial hemorrhage, abnormal extra-axial fluid collection, or mass effect. Fourth ventricle is midline without hydrocephalus. Bony calvarium intact. Visualized paranasal sinuses and mastoid air cells are clear. Impression: Stable nonacute senile brain with remote left caudate lacunar infarct. CTDI 70.00
== END 2017-12-28 17:10 | disposition home or self-care (01) ==
LOC: ED 14:40
DX: R51 Headache (principal); I16.0 Hypertensive urgency; Z79.899 Other long term (current) drug therapy
CPT/HCPCS: 36000; 36415; 70450; 80048; 85025; 93005; 93041; 96360; 96361; 96374; 96375; 96376; 99284; J0360; J1170

== ENCOUNTER 2018-03-07 23:36 | Observation (INO) | payer MEDICARE ==
[2018-03-08 01:10] LABS: BASOPHIL % 0.4 % (0.0-0.4); Basophil (Absolute #) 0.03 (0-0.4); Eosinophil % 3.1 % (0.00-5.0); Eosinophil (Absolute #) 0.21 (0-0.5); Granulocytes % 63.2 % (36.0-66.0); Hematocrit 38.7 % (35-47); Lymphocyte (Absolute #) 1.78 (1.0-4.6); Lymphocytes % 26.1 % (24.0-44.0); Mean Cell Volume 80.8 fl (78-100); Mean Corpuscular Hemoglobin 25.1 pg (26-32); Mean Platelet Volume 11.2 fl (6-9.5); Monocyte (Absolute #) 0.49 (0.0-1.3); Monocytes % 7.2 % (0.0-12.0); Platelet Count 264 K/mm3 (150-450); Red Blood Count 4.79 M/mm3 (4.1-5.4); Red Cell Distribution Width 16.3 % (11.5-14.0); White Blood Count 6.8 K/mm3 (4.0-10.5)
[2018-03-08 01:26] LABS: INR 1.01 (0.8-3.0)
[2018-03-08 01:28] LABS: PTT 30.4 SECONDS (25.3-37.0)
[2018-03-08 01:30] LABS: ALBUMIN 4.1 g/dL (3.5-5.0); ANION GAP 16.9 MEQ/L (5-15); BILIRUBIN,TOTAL 0.7 mg/dL (0.2-1.3); Calcium 9.3 mg/dL (8.4-10.2); Creatinine 1 1.04 mg/dL (0.52-1.04)
--- NOTE | 2018-03-08 02:08 | ERPHSYRPT ---
- History of Present Illness Time Seen by Provider: 03/08/18 00:31 Source: patient Exam Limitations: no limitations Patient Subjective Stated Complaint: pt states she got a msg today that her d dimer was elevated and was told to come into the er. Triage Nursing Assessment: pt alert and oriented, answers questions approp. pt ambulatory with steady gait ntoed. respirations nonlabored. skin pink warm and dry. no distress noted. Physician History: Pt has been c/o increasing cough and SOB for 4-5 days. She called her provider, who ordered labs, which was drawn yesterday afternoon, she has received a phonecall tonight, reporting elevated d-dimer, and was instructed to come here. She denies chest pain, nausea, vomiting, fever, diarrhea, other complaints. She is a smoker, denies Hx of COPD, but had CABG, CAD. Timing/Duration: day(s) (5) Activities at Onset: none Severity of Dyspnea-Max: moderate Severity of Dyspnea-Current: mild Possible Cause: occasional episodes Modifying Factors: Improves With: nothing Associated Symptoms: intermittent, cough Allergies/Adverse Reactions: ibuprofen Allergy (Verified 03/08/18 00:09) NSAIDS (Non-Steroidal Anti-Inflamma Allergy (Verified 03/08/18 00:09) Penicillins Allergy (Verified 03/08/18 00:09) Home Medications: Meclizine HCl 25 mg [Antivert 25 mg] 25 mg PO TIDPRN PRN 03/28/16 [History ] PANTOPRAZOLE 40 mg Tablet [Protonix 40MG Tablet] 40 mg PO DAILY 03/28/16 [ History] Tizanidine HCl 4 mg [Zanaflex 4 MG] 4 mg PO TIDPRN PRN 03/28/16 [History] Atorvastatin Calcium 40 mg PO DAILY 03/29/16 [History] Oxycodone HCl Cr 20 mg [Oxycontin 20 MG ER] 20 mg PO BID 04/11/17 [History ] Lorazepam 0.5 mg [Ativan 0.5 MG] 0.5 mg PO UD 12/28/17 [History] Gabapentin Enacarbil [Horizant] 300 mg PO UD 03/08/18 [History] Oxycodone HCl/Acetaminophen [Percocet 7.5-325 mg Tablet] 1 each PO BID 03/08/18 [History] Hx Tetanus, Diphtheria Vaccination/Date Given: No Hx Influenza Vaccination/Date Given: No Hx Pneumococcal Vaccination/Date Given: No Immunizations Up to Date: No - Review of Systems Constitutional: No Symptoms Respiratory: Cough, Dyspnea All Other Systems: Reviewed and Negative - Past Medical History Pertinent Past Medical History: Yes Neurological History: Migraines, TIA ENT History: Cataracts Cardiac History: Coronary Artery Disease Respiratory History: COPD Endocrine Medical History: Other Musculoskeletal History: No Pertinent History GI Medical History: Gallbladder Disease History: No Pertinent History Psycho-Social History: Anxiety, Depression Female Reproductive Disorders: No Pertinent History Other Medical History: chronic pain,anemia, hepatitis c - Past Surgical History Past Surgical History: Yes Neuro Surgical History: No Pertinent History Cardiac: CABG, Vascular Surgery Respiratory: No Pertinent History Gastrointestinal: Cholecystectomy Genitourinary: No Pertinent History Musculoskeletal: Joint Replacement, Orthopedic Surgery Female Surgical History: Hysterectomy Other Surgical History: Bilateral SHOULDERS, BACK,left knee, lt carotid - Social History Smoking Status: Current every day smoker How long have you smoked: 52 years Exposure to second hand smoke: Yes Drug Use: none Patient Lives Alone: No - Nursing Vital Signs Nursing Vital Signs: Initial Vital Signs Temperature 98.1 F 03/08/18 00:00 Pulse Rate 92 H 03/08/18 00:00 Respiratory Rate 18 03/08/18 00:00 Blood Pressure 128/81 03/08/18 00:00 O2 Sat by Pulse Oximetry 99 03/08/18 00:00 Pain Scale Pain Intensity 0 - Physical Exam General Appearance: no apparent distress Eye Exam: eyes nml inspection Ears, Nose, Throat Exam: normal ENT inspection, normal pharynx Neck Exam: normal inspection, non-tender, supple, No JVD Respiratory Exam: normal breath sounds, lungs clear, airway intact, No chest tenderness, No respiratory distress Cardiovascular/Chest Exam: normal heart sounds, regular rate/rhythm, normal peripheral pulses, No murmur, No edema, No JVD Abdominal/Gastrointestinal Exam: soft, normal bowel sounds, No tenderness, No distention, No mass, No guarding Peripheral Pulses Exam: dorsalis-pedis (R): 3+, dorsalis-pedis (L): 3+ Neurologic Exam: alert, oriented x 3 Skin Exam: normal color, warm, dry, No rash Lymphatic Exam: No adenopathy SpO2 Interpretation: normal SpO2: 99 Oxygen Delivery: Room Air - Course Nursing assessment & vital signs reviewed: Yes EKG Interpreted by Me: RATE (82/min), NORMAL AXIS, NORMAL INTERVALS, Non- specific ST Changes - CT Exams Chest CT Interpretation: Other (No definite large central pulmonary embolism, though there is inadequatecontrast density within the pulmonary artery and therefore pulmonary embolus is not excluded.) Ordered Tests: Active Orders 24 hr Category Date Time 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 Care 03/08/18 00:32 Active EKG-ER Only STAT Care 03/08/18 00:31 Active IV Insertion STAT Care 03/08/18 00:31 Active Oxygen-ED Only NASAL CANNULA 2 lpm Care 03/08/18 00:31 Active CHEST WITH CONTRAST [CT] Stat Exams 03/08/18 02:52 Taken CBC W DIFF Stat Lab 03/08/18 01:00 Completed CMP Stat Lab 03/08/18 01:00 Completed NT PRO BNP Stat Lab 03/08/18 01:00 Completed PROTIME WITH INR Stat Lab 03/08/18 01:00 Completed PTT Stat Lab 03/08/18 01:00 Completed TROPONIN Q3H Lab 03/08/18 01:00 Completed TROPONIN Q3H Lab 03/08/18 03:50 Completed TROPONIN Q3H Lab 03/08/18 06:45 Ordered TROPONIN Q3H Lab 03/08/18 09:45 Ordered TROPONIN Q3H Lab 03/08/18 12:45 Ordered Lab/Rad Data: Laboratory Result Diagrams 03/08/18 01:00 03/08/18 01:00 Laboratory Results 03/08/18 03/08/18 03/08/18 Range/Units 03:50 01:00 01:00 WBC (4.0-10.5) K/mm3 RBC (4.1-5.4) M/mm3 Hgb (12.0-16.0) gm/dl Hct (35-47) % MCV (78-100) fl MCH (26-32) pg MCHC (32-36) g/dl RDW (11.5-14.0) % Plt Count (150-450) K/mm3 MPV (6-9.5) fl Gran % (36.0-66.0) % Eos # (Auto) (0-0.5) Absolute Lymphs (auto) (1.0-4.6) Absolute Monos (auto) (0.0-1.3) Lymphocytes % (24.0-44.0) % Monocytes % (0.0-12.0) % Eosinophils % (0.00-5.0) % Basophils % (0.0-0.4) % Absolute Granulocytes (1.4-6.9) Basophils # (0-0.4) PT 11.8 (9.95-12.35) SECONDS INR 1.01 (0.8-3.0) APTT 30.4 (25.3-37.0) SECONDS Sodium (137-145) mmol/L Potassium (3.5-5.1) mmol/L Chloride (98-107) mmol/L Carbon Dioxide (22-30) mmol/L Anion Gap (5-15) MEQ/L BUN (7-17) mg/dL Creatinine (0.52-1.04) mg/dL Estimated GFR ML/MIN Glucose (74-106) mg/dL Calcium (8.4-10.2) mg/dL Total Bilirubin (0.2-1.3) mg/dL AST (14-36) U/L ALT (0-35) U/L Alkaline Phosphatase (38-126) U/L Troponin I < 0.012 0.016 (0.000-0.034) ng/mL NT-Pro-B Natriuret Pep (0-900) pg/mL Serum Total Protein (6.3-8.2) g/dL Albumin (3.5-5.0) g/dL 03/08/18 03/08/18 Range/Units 01:00 01:00 WBC 6.8 (4.0-10.5) K/mm3 RBC 4.79 (4.1-5.4) M/mm3 Hgb 12.0 (12.0-16.0) gm/dl Hct 38.7 (35-47) % MCV 80.8 (78-100) fl MCH 25.1 L (26-32) pg MCHC 31.0 L (32-36) g/dl RDW 16.3 H (11.5-14.0) % Plt Count 264 (150-450) K/mm3 MPV 11.2 H (6-9.5) fl Gran % 63.2 (36.0-66.0) % Eos # (Auto) 0.21 (0-0.5) Absolute Lymphs (auto) 1.78 (1.0-4.6) Absolute Monos (auto) 0.49 (0.0-1.3) Lymphocytes % 26.1 (24.0-44.0) % Monocytes % 7.2 (0.0-12.0) % Eosinophils % 3.1 (0.00-5.0) % Basophils % 0.4 (0.0-0.4) % Absolute Granulocytes 4.30 (1.4-6.9) Basophils # 0.03 (0-0.4) PT (9.95-12.35) SECONDS INR (0.8-3.0) APTT (25.3-37.0) SECONDS Sodium 138 (137-145) mmol/L Potassium 5.2 H (3.5-5.1) mmol/L Chloride 101 (98-107) mmol/L Carbon Dioxide 25 (22-30) mmol/L Anion Gap 16.9 H (5-15) MEQ/L BUN 13 (7-17) mg/dL Creatinine 1.04 (0.52-1.04) mg/dL Estimated GFR 56.7 ML/MIN Glucose 113 H (74-106) mg/dL Calcium 9.3 (8.4-10.2) mg/dL Total Bilirubin 0.70 (0.2-1.3) mg/dL AST 37 H (14-36) U/L ALT 12 (0-35) U/L Alkaline Phosphatase 77 (38-126) U/L Troponin I (0.000-0.034) ng/mL NT-Pro-B Natriuret Pep 155 (0-900) pg/mL Serum Total Protein 8.0 (6.3-8.2) g/dL Albumin 4.1 (3.5-5.0) g/dL - Progress Progress: improved Air Movement: good Progress Note: 03/08/18 04:52 Results and patient's condition discussed with DR Rabago, he agreed to admit her for further treatment, she was informed and agreed. She has been stable, no fever or severe respiratory distress. Blood Culture(s) Obtained: Yes Antibiotics given: Yes Discussed with : Jadon Will see patient in: hospital (observation) Counseled pt/family regarding: lab results, diagnosis, rad results - Departure Time of Disposition: 04:54 Departure Disposition: Observation Clinical Impression: COPD (chronic obstructive pulmonary disease) with acute bronchitis Dyspnea Qualifiers: Dyspnea type: unspecified Qualified Code(s): R06.00 - Dyspnea, unspecified Condition: Stable Critical Care Time: No Referrals: JOON RABAGO MD [Primary Care Provider] - Instructions: Chronic Obstructive Pulmonary Disease
[2018-03-08 02:42] LABS: Potassium 5.2 mmol/L (3.5-5.1)
[2018-03-08] MEDS ORDERED: LEVOFLOXACIN 750MG/150ML D5W 750 MG/150 ML BAG IV STA (04:48)
[2018-03-08] MEDS ORDERED: solu-MEDROL 125 MG IV ONE (04:49)
[2018-03-08] MEDS ORDERED: solu-MEDROL 125 MG ONE (05:25)
[2018-03-08] MEDS ORDERED: LEVOFLOXACIN 750MG/150ML D5W 750 MG/150 ML BAG IV ONE (05:25)
[2018-03-08] MEDS ORDERED: solu-MEDROL 125 MG IV SCH ×2 (06:00→12:00)
[2018-03-08] MEDS ORDERED: DUONEB 0.5-3 MG/3 ml Neb IH PRN (06:09)
[2018-03-08] MEDS ORDERED: DUONEB 0.5-3 MG/3 ml Neb IH SCH (07:00)
[2018-03-08 08:06] VITALS: BP 161/81; O2SAT 95
--- NOTE | 2018-03-08 08:31 | PCM.SSS ---
History of Present Illness - Chief Complaint Chief Complaint: COPD Exacerbation History of Present Illness: is a 62 year old female who presented to the ER, had labs with elevated d-dimer. has been short of breath and has some cough productive of yellow sputum. no fever, she is a longtime smoker. cta chest was suboptimal but no PE seen. - Review of Systems Constitutional: No Fever, No Chills Respiratory: Cough, Short Of Breath Cardiac: No Chest Pain, No Edema, No Syncope Abdominal/Gastrointestinal: No Abdominal Pain, No Nausea, No Vomiting, No Diarrhea Genitourinary Symptoms: No Dysuria Skin: No Rash All Other Systems: Reviewed and Negative Medications & Allergies Home Medications: Home Medication List Meclizine HCl 25 mg [Antivert 25 mg] 25 mg PO TIDPRN PRN 03/28/16 [ History Confirmed 03/08/18] PANTOPRAZOLE 40 mg Tablet [Protonix 40MG Tablet] 40 mg PO DAILY 03/28/16 [ History Confirmed 03/08/18] Tizanidine HCl 4 mg [Zanaflex 4 MG] 4 mg PO TIDPRN PRN 03/28/16 [History Confirmed 03/08/18] Atorvastatin Calcium 40 mg PO DAILY 03/29/16 [History Confirmed 03/08/18] Lisinopril 20 mg [Zestril 20 MG] 20 mg PO BID #60 tablet 12/01/16 [Rx Confirmed 03/08/18] Oxycodone HCl Cr 20 mg [Oxycontin 20 MG ER] 20 mg PO BID 04/11/17 [ History Confirmed 03/08/18] Metoprolol Succinate 50 mg [Toprol Xl 50 MG] 50 mg PO DAILY #0 tablet.sa 04/13/17 [Rx Confirmed 03/08/18] Triamcinolone 0.1% Cream [Kenalog 0.1% Cream 15 gm] 1 gm TP BID #30 g [Rx Confirmed 03/08/18] Lorazepam 0.5 mg [Ativan 0.5 MG] 0.5 mg PO DAILY PRN 12/28/17 [History Confirmed 03/08/18] Gabapentin Enacarbil [Horizant] 900 mg PO TID 03/08/18 [History Confirmed ] Levofloxacin [Levaquin] 500 mg PO DAILY #7 tablet 03/08/18 [Rx] Oxycodone HCl/Acetaminophen [Percocet 7.5-325 mg Tablet] 1 each PO BID 03/08/18 [History Confirmed 03/08/18] predniSONE [Prednisone] 20 mg PO UD #18 tablet 03/08/18 [Rx] Allergies/Adverse Reactions: Allergies Allergy/AdvReac Type Severity Reaction Status Date / Time ibuprofen Allergy Verified 03/08/18 00:09 NSAIDS (Non-Steroidal Allergy Verified 03/08/18 00:09 Anti-Inflamma Penicillins Allergy Verified 03/08/18 00:09 - Past Medical History Past Medical History: Yes Neurological History: Migraines, TIA ENT History: Cataracts Cardiac History: Coronary Artery Disease Respiratory History: No Pertinent History Endocrine Medical History: Other Musculoskelatal History: No Pertinent History GI Medical History: Gallbladder Disease History: No Pertinent History Pyscho-Social History: Anxiety, Depression Reproductive Disorders: No Pertinent History Comment: chronic pain,anemia, hepatitis c viral free for 4 yrs. - Female History Are you now?: No - Past Surgical History Past Surgical History: Yes Neuro Surgical History: No Pertinent History Cardiac History: CABG, Vascular Surgery Respiratory Surgery: No Pertinent History GI Surgical History: Cholecystectomy Genitourinary Surgical Hx: No Pertinent History Musculskeletal Surgical Hx: Joint Replacement, Orthopedic Surgery Female Surgical History: Hysterectomy Other Surgical History: Bilateral SHOULDERS, BACK,left knee, lt carotid - Social History Smoking Status: Current every day smoker How long have you smoked: 52 years Exposure to second hand smoke: Yes Alcohol: None Drug Use: none - Physical Exam Vital Signs: Vital Signs - 24 hr Temp Pulse Resp BP Pulse Ox 03/08/18 08:00 97.9 F 79 18 161/81 95 03/08/18 06:09 98.1 F 85 20 154/85 95 03/08/18 04:54 99 03/08/18 04:00 89 18 166/97 97 03/08/18 02:40 98.1 F 79 143/82 99 03/08/18 01:50 82 14 125/70 03/08/18 01:40 80 18 125/70 97 03/08/18 00:00 98.1 F 92 H 18 128/81 99 Oxygen-Last 24 hours O2 Percentage 2 Liters = 28% General Appearance: no apparent distress, alert Eye Exam: PERRL/EOMI, eyes nml inspection Respiratory Exam: wheezing Cardiovascular Exam: regular rate/rhythm, normal heart sounds, normal peripheral pulses Gastrointestinal/Abdomen Exam: soft, normal bowel sounds, No tenderness, No mass Extremity Exam: normal inspection, normal range of motion, pelvis stable Results - Labs Lab/Micro Results: Lab Results-Last 24 Hours 03/08/18 Range/Units 06:43 Troponin I < 0.012 (0.000-0.034) ng/mL - Other Procedures and Tests Respiratory Therapy 03/08/18 06:09 Respiratory Nebulizer UD 03/08/18 06:27 Smoking Cessation Education ONCE Assessment/Plan (1) COPD (chronic obstructive pulmonary disease) with acute bronchitis Current Visit: Yes Status: Acute Assessment & Plan: no oxygen requirement, patient is in no distress. doesn't feel short of breath today, no chest pain. with wheezing and clear exacerbation of copd explains her symptomatology. patient requesting to be treated as an outpatient today. Code(s): J44.0 - CHRONIC OBSTRUCTIVE PULMON DISEASE W ACUTE LOWER RESP INFCT; J20.9 - ACUTE BRONCHITIS, UNSPECIFIED Hospital Summary - Vitals & Intake/Output Vital Signs: Vital Signs Temperature 97.9 F 03/08/18 08:00 Pulse Rate 79 03/08/18 08:00 Respiratory Rate 18 03/08/18 08:00 Blood Pressure 161/81 03/08/18 08:00 O2 Sat by Pulse Oximetry 95 03/08/18 08:00 Oxygen-Last Documented O2 Percentage 2 Liters = 28% Intake & Output: Intake & Output 03/05/18 03/06/18 03/07/18 03/08/18 11:59 11:59 11:59 11:59 Weight 90.4 kg - Lab Result Diagrams: 03/08/18 01:00 03/08/18 01:00 Lab Results-Last 24 Hrs: Lab Results-Last 24 Hours 03/08/18 Range/Units 06:43 Troponin I < 0.012 (0.000-0.034) ng/mL - Procedures and Test Procedures and Tests throughout Hospitalization: Therapy Orders & Screens 03/08/18 06:09 Respiratory Nebulizer UD Comment: RAFAEL Q4PRN Diagnosis: COPD Exacerbation 03/08/18 06:27 Smoking Cessation Education ONCE Comment: Diagnosis: COPD Exacerbation Smoking Status: Current every day smoker How long have you smoked: 52 years Have you smoked in the past 12 months: Yes Approximately how many cigarettes per day: 1/2 pack daily Do you dip or chew tobacco: No - Discharge Disposition: Home, Self-Care Condition: Stable Prescriptions: New Levofloxacin [Levaquin] 500 mg PO DAILY #7 tablet predniSONE [Prednisone] 20 mg PO UD #18 tablet Continue Meclizine HCl 25 mg [Antivert 25 mg] 25 mg PO TIDPRN PRN PRN Reason: Dizziness PANTOPRAZOLE 40 mg Tablet [Protonix 40MG Tablet] 40 mg PO DAILY Tizanidine HCl 4 mg [Zanaflex 4 MG] 4 mg PO TIDPRN PRN PRN Reason: Pain Atorvastatin Calcium 40 mg PO DAILY Lisinopril 20 mg [Zestril 20 MG] 20 mg PO BID #60 tablet Oxycodone HCl Cr 20 mg [Oxycontin 20 MG ER] 20 mg PO BID Triamcinolone 0.1% Cream [Kenalog 0.1% Cream 15 gm] 1 gm TP BID #30 g Metoprolol Succinate 50 mg [Toprol Xl 50 MG] 50 mg PO DAILY #0 tablet.sa Lorazepam 0.5 mg [Ativan 0.5 MG] 0.5 mg PO DAILY PRN PRN Reason: Anxiety Oxycodone HCl/Acetaminophen [Percocet 7.5-325 mg Tablet] 1 each PO BID Gabapentin Enacarbil [Horizant] 900 mg PO TID Follow up with: JOON RABAGO MD [Primary Care Provider] - 1 Week
[2018-03-08] MEDS ORDERED: ANTIVERT 25 MG PO PRN (08:54)
[2018-03-08] MEDS ORDERED: Ativan 0.5 MG PO PRN (08:54)
[2018-03-08] MEDS ORDERED: Zanaflex 4 MG PO PRN (08:54)
[2018-03-08] MEDS ORDERED: PERCOCET TABLET 5/325MG PO PRN (09:03)
--- NOTE | 2018-03-08 09:20 | XRAY ---
Indication: Elevated d-dimer. Multiple contiguous axial images obtained through the chest using 80 cc Isovue 370 contrast and PE protocol. Comparison: April 18, 2016. There is satisfactory opacification of the pulmonary arteries including the lobar and segmental branches. Respiration artifact near the lung bases degrades the study. No filling defect or pulmonary embolus. Heart is not enlarged and again demonstrates CABG surgery. Aorta remains minimally arteriosclerotic without aneurysm/dissection. Stable prominent left epicardiac fat. No pathologic mediastinal/hilar lymphadenopathy. Examination of the lung parenchyma demonstrates stable left upper lobe fibrosis/scarring. No suspicious pulmonary mass, infiltrate, or effusion. Bony thorax intact again with minimal degenerative changes throughout the spine and bilateral shoulder arthroplasty. Again minimal remote appearing T12 anterior wedging. Limited upper abdomen again demonstrates 13.2 cm splenomegaly and cholecystectomy clips. Impression: 1. Respiration artifact. No large central pulmonary embolus. 2. No acute cardiopulmonary abnormalities. 3. Stable left upper lobe fibrosis/scarring, prominent left epicardiac fat, splenomegaly, and remote T12 anterior wedging deformity. Comment: Preliminary interpretation was made by [facility] who reports bilateral lung groundglass opacities which I believe are explained by respiration artifact and not true airspace disease. CTDI 23.69
[2018-03-08] MEDS ORDERED: NON-FORMULARY ITEM (Oxycodone Hcl/Acetaminophen [Percocet 7.5-325 Mg Tablet] 1 EACH) PO SCH (10:00)
[2018-03-08] MEDS ORDERED: Protonix 40MG Tablet PO SCH (10:00)
[2018-03-08] MEDS ORDERED: Oxycontin 20 MG ER PO SCH (10:00)
[2018-03-08] MEDS ORDERED: GABAPENTIN ENACARBIL PO SCH (10:00)
[2018-03-08] MEDS ORDERED: NEURONTIN 300 MG PO SCH (10:00)
[2018-03-08] MEDS ORDERED: Zestril 20 MG PO SCH (10:00)
[2018-03-08] MEDS ORDERED: ENOXAPARIN SODIUM SQ SCH (10:00)
[2018-03-08] MEDS ORDERED: Toprol Xl 50 MG PO SCH (10:00)
[2018-03-08 10:17] VITALS: PULSE 80
[2018-03-08] MEDS ORDERED: LIPITOR 40MG PO SCH (22:00)
[2018-03-08] MEDS ORDERED: LEVOFLOXACIN 750MG/150ML D5W 750 MG/150 ML BAG IV SCH (22:00)
[2018-03-08] MEDS ORDERED: KENALOG 0.1% CREAM 15 GM TP SCH (22:00)
== END 2018-03-08 09:50 | disposition home or self-care (01) ==
LOC: ED 23:36 → MED SURG 03-08 05:57
PROVIDERS: ADMIT Family Medicine; ATTEND Family Medicine
DX: J44.0 Chronic obstructive pulmonary disease with (acute) lower respiratory infection (principal); J20.9 Acute bronchitis, unspecified; I25.810 Atherosclerosis of coronary artery bypass graft(s) without angina pectoris; F41.8 Other specified anxiety disorders; Z86.73 Personal history of transient ischemic attack (TIA), and cerebral infarction without residual deficits; B19.20 Unspecified viral hepatitis C without hepatic coma; Z72.0 Tobacco use
CPT/HCPCS: 36000; 36415; 71260; 80053; 83880; 84484; 85025; 85610; 85730; 87040; 93005; 93041; 93268; 94760; 96374; 96375; 99285; J1956; J2930; A9270-GY; G0378

== ENCOUNTER 2018-04-13 21:43 | Emergency (ER) | payer MEDICARE ==
[2018-04-13] MEDS ORDERED: Zofran 4 MG/2 ML VIAL IV ONE (22:03)
[2018-04-13] MEDS ORDERED: Catapres 0.1 MG PO ONE (22:07)
[2018-04-13] MEDS ORDERED: Ativan 0.5 MG PO ONE (22:07)
[2018-04-13] MEDS ORDERED: PERCOCET TABLET 5/325MG PO STA (22:07)
--- NOTE | 2018-04-13 22:15 | ERPHSYRPT ---
- History of Present Illness Time Seen by Provider: 04/13/18 21:49 Source: patient Exam Limitations: no limitations Patient Subjective Stated Complaint: Pt states "I have been fighting with my blood pressure all day. It has been up since this morning and my head is pounding. I even tried to take 2 nitro earlier today to get it down but it did not help." Triage Nursing Assessment: PT alert and oriented X 3, skin pwd. Pt ambulates with an upright steady gait, able to speak in clear full sentences. Pt holding her head, extremely anxious. Physician History: Pt checked her blood pressure, it was 236/130 at home, she has been taking her blood pressure medications regularly, denies recent changes, developed generalized headaches, and vomited once. She gets similar headaches frequently, whenever her blood pressure is elevated. She denies chest pain, palpitations, SOB, focal weakness, slurred speech, or visual changes. She took NTG before coming to control her blood pressure. Timing/Duration: today Quality: dullness Head Pain Location: global Severity of Pain-Max: moderate Severity of Pain-Current: moderate Recent Head Trauma: no recent headache/trauma, frequent headaches Modifying Factors: Improves With: other (none) Associated Symptoms: dizziness, nausea/vomiting Previous symptoms: same symptoms as today Allergies/Adverse Reactions: ibuprofen Allergy (Verified 03/08/18 00:09) NSAIDS (Non-Steroidal Anti-Inflamma Allergy (Verified 03/08/18 00:09) Penicillins Allergy (Verified 03/08/18 00:09) Home Medications: Meclizine HCl 25 mg [Antivert 25 mg] 25 mg PO TIDPRN PRN 03/28/16 [History ] PANTOPRAZOLE 40 mg Tablet [Protonix 40MG Tablet] 40 mg PO DAILY 03/28/16 [ History] Tizanidine HCl 4 mg [Zanaflex 4 MG] 4 mg PO TIDPRN PRN 03/28/16 [History] Atorvastatin Calcium 40 mg PO DAILY 03/29/16 [History] Oxycodone HCl Cr 20 mg [Oxycontin 20 MG ER] 20 mg PO BID 04/11/17 [History ] Lorazepam 0.5 mg [Ativan 0.5 MG] 0.5 mg PO DAILY PRN 12/28/17 [History] Gabapentin Enacarbil [Horizant] 900 mg PO TID 03/08/18 [History] Oxycodone HCl/Acetaminophen [Percocet 7.5-325 mg Tablet] 1 each PO BID 03/08/18 [History] Hx Tetanus, Diphtheria Vaccination/Date Given: Yes Hx Influenza Vaccination/Date Given: Yes Hx Pneumococcal Vaccination/Date Given: Yes Immunizations Up to Date: Yes - Review of Systems Constitutional: No Symptoms Respiratory: No Symptoms Cardiac: No Symptoms Abdominal/Gastrointestinal: Nausea, Vomiting Neurological: Dizziness, Headache All Other Systems: Reviewed and Negative - Past Medical History Pertinent Past Medical History: Yes Neurological History: Migraines, TIA ENT History: Cataracts Cardiac History: Coronary Artery Disease Respiratory History: No Pertinent History Endocrine Medical History: Other Musculoskeletal History: No Pertinent History GI Medical History: Gallbladder Disease History: No Pertinent History Psycho-Social History: Anxiety, Depression Female Reproductive Disorders: No Pertinent History Other Medical History: chronic pain,anemia, hepatitis c viral free for 4 yrs. - Past Surgical History Past Surgical History: Yes Neuro Surgical History: No Pertinent History Cardiac: CABG, Vascular Surgery Respiratory: No Pertinent History Gastrointestinal: Cholecystectomy Genitourinary: No Pertinent History Musculoskeletal: Joint Replacement, Orthopedic Surgery Female Surgical History: Hysterectomy Other Surgical History: Bilateral SHOULDERS, BACK,left knee, lt carotid - Social History Smoking Status: Current every day smoker How long have you smoked: 54 years Exposure to second hand smoke: Yes Drug Use: none Patient Lives Alone: No - Female History Hx Now: No - Nursing Vital Signs Nursing Vital Signs: Initial Vital Signs Temperature 98.8 F 04/13/18 21:52 Pulse Rate 90 04/13/18 21:52 Respiratory Rate 18 04/13/18 21:52 Blood Pressure 205/108 04/13/18 21:52 O2 Sat by Pulse Oximetry 98 04/13/18 21:52 Pain Scale Pain Intensity 6 - Physical Exam General Appearance: no apparent distress Eye Exam: PERRL/EOMI, eyes nml inspection Ears, Nose, Throat Exam: normal ENT inspection, pharynx normal Neck Exam: normal inspection, non-tender, supple, No mass, No carotid bruit, No JVD Respiratory Exam: normal breath sounds, lungs clear, airway intact, No chest tenderness Cardiovascular Exam: regular rate/rhythm, normal heart sounds, normal peripheral pulses, No murmur Gastrointestinal/Abdominal Exam: soft, normal bowel sounds, No tenderness Back Exam: normal inspection, No CVA tenderness Extremity Exam: normal inspection Mental Status Exam: alert, oriented x 3, 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 Exam: normal speech Coordination/Gait Exam: normal gait, normal cerebellar function Motor/Sensory Exam: no motor deficit Skin Exam: normal color, warm, dry, No rash Lymphatic Exam: No adenopathy SpO2 Interpretation: normal SpO2: 98 Oxygen Delivery: Room Air - Course Nursing assessment & vital signs reviewed: Yes EKG Interpreted by Me: RATE (87/min), NORMAL AXIS, NORMAL INTERVALS, Non- specific ST Changes, Other (inferior Q waves, unchanged from 03/08/18, repeat Ek:24 AM: unchanged) - Radiology Exams Chest X-ray Interpretation: Interpreted by me, Negative - CT Exams Head CT Interpretation: Negative, Tele-radiologist Report Ordered Tests: Active Orders 24 hr Category Date Time Status EKG-ER Only STAT Care 04/13/18 22:03 Active EKG-ER Only STAT Care 04/14/18 00:17 Active IV Insertion STAT Care 04/13/18 22:03 Active Oxygen-ED Only NASAL CANNULA 2 lpm Care 04/13/18 22:03 Active CHEST 1 VIEW (PORTABLE) Stat Exams 04/13/18 22:03 Taken HEAD WITHOUT CONTRAST [CT] Stat Exams 04/13/18 22:05 Taken CBC W DIFF Stat Lab 04/13/18 22:25 Completed CK-Creatinine Phosphokinase Stat Lab 04/13/18 22:25 Completed CMP Stat Lab 04/13/18 22:25 Completed Erythrocyte Sedimentation Rate Stat Lab 04/13/18 22:25 Completed NT PRO BNP Stat Lab 04/13/18 22:25 Completed PROTIME WITH INR Stat Lab 04/13/18 22:25 Completed TROPONIN Q3H Lab 04/13/18 22:25 Completed TROPONIN Q3H Lab 04/14/18 00:35 Completed TROPONIN Q3H Lab 04/14/18 04:15 Ordered TROPONIN Q3H Lab 04/14/18 07:15 Ordered TROPONIN Q3H Lab 04/14/18 10:15 Ordered UA W/RFX UR CULTURE Stat Lab 04/13/18 22:45 Completed Medication Summary Discontinued Medications Generic Name Dose Route Start Last Admin Trade Name Freq PRN Reason Stop Dose Admin Clonidine 0.1 mg 04/13/18 22:07 04/13/18 22:35 Catapres 0.1 Mg PO 04/13/18 22:08 0.1 mg STAT ONE Administration Clonidine Confirm 04/13/18 22:31 Catapres 0.1 Mg Administered 04/13/18 22:32 Dose 0.1 mg .ROUTE .STK-MED ONE Lorazepam 0.5 mg 04/13/18 22:07 04/13/18 22:34 Ativan 0.5 Mg PO 04/13/18 22:08 0.5 mg STAT ONE Administration Lorazepam Confirm 04/13/18 22:31 Ativan 1 Mg Administered 04/13/18 22:32 Dose 1 mg .ROUTE .STK-MED ONE Morphine Sulfate 4 mg 04/13/18 23:39 04/13/18 23:45 Morphine Sulfate 4 Mg Inj IV 04/13/18 23:40 4 mg STAT ONE Administration Morphine Sulfate Confirm 04/13/18 23:43 Morphine Sulfate 4 Mg Inj Administered 04/13/18 23:44 Dose 4 mg .ROUTE .STK-MED ONE Ondansetron HCl 4 mg 04/13/18 22:03 04/13/18 22:35 Zofran 4 Mg/2 Ml Vial IV 04/13/18 22:04 4 mg STAT ONE Administration Ondansetron HCl Confirm 04/13/18 22:30 Zofran 4 Mg/2 Ml Vial Administered 04/13/18 22:31 Dose 4 mg .ROUTE .STK-MED ONE Oxycodone/Acetaminophen 1 tab 04/13/18 22:07 04/13/18 22:35 Percocet Tablet 5/325mg PO 04/13/18 22:08 1 tab STAT STA Administration Oxycodone/Acetaminophen Confirm 04/13/18 22:31 Percocet Tablet 5/325mg Administered 04/13/18 22:32 Dose 1 tab .ROUTE .STK-MED ONE Lab/Rad Data: Laboratory Result Diagrams 04/13/18 22:25 04/13/18 22:25 Laboratory Results 04/14/18 04/13/18 04/13/18 Range/Units 00:35 22:45 22:25 WBC (4.0-10.5) K/mm3 RBC (4.1-5.4) M/mm3 Hgb (12.0-16.0) gm/dl Hct (35-47) % MCV (78-100) fl MCH (26-32) pg MCHC (32-36) g/dl RDW (11.5-14.0) % Plt Count (150-450) K/mm3 MPV (6-9.5) fl Gran % (36.0-66.0) % Eos # (Auto) (0-0.5) Absolute Lymphs (auto) (1.0-4.6) Absolute Monos (auto) (0.0-1.3) Lymphocytes % (24.0-44.0) % Monocytes % (0.0-12.0) % Eosinophils % (0.00-5.0) % Basophils % (0.0-0.4) % Absolute Granulocytes (1.4-6.9) Basophils # (0-0.4) ESR 18 (0-20) mm/hr PT (9.95-12.35) SECONDS INR (0.8-3.0) Sodium (137-145) mmol/L Potassium (3.5-5.1) mmol/L Chloride (98-107) mmol/L Carbon Dioxide (22-30) mmol/L Anion Gap (5-15) MEQ/L BUN (7-17) mg/dL Creatinine (0.52-1.04) mg/dL Estimated GFR ML/MIN Glucose (74-106) mg/dL Calcium (8.4-10.2) mg/dL Total Bilirubin (0.2-1.3) mg/dL AST (14-36) U/L ALT (0-35) U/L Alkaline Phosphatase (38-126) U/L Creatine Kinase (30-135) U/L Troponin I < 0.012 (0.000-0.034) ng/mL NT-Pro-B Natriuret Pep (0-900) pg/mL Serum Total Protein (6.3-8.2) g/dL Albumin (3.5-5.0) g/dL Ur Collection Type CLEAN CATCH Urine Color YELLOW (YELLOW) Urine Appearance CLEAR (CLEAR) Urine pH 7.0 (5-6) Ur Specific [place] 1.010 (1.005-1.025) Urine Protein NEGATIVE (Negative) Urine Ketones NEGATIVE (NEGATIVE) Urine Blood NEGATIVE (0-5) Camron/ul Urine Nitrite NEGATIVE (NEGATIVE) Urine Bilirubin NEGATIVE (NEGATIVE) Urine Urobilinogen NORMAL (0-1) mg/dL Ur Leukocyte Esterase NEGATIVE (NEGATIVE) Urine Culture Reflexed NO (NO) Urine Glucose NEGATIVE (NEGATIVE) mg/dL Specimen Received 04/13/18 2300 04/13/18 04/13/18 04/13/18 Range/Units 22:25 22:25 22:25 WBC (4.0-10.5) K/mm3 RBC (4.1-5.4) M/mm3 Hgb (12.0-16.0) gm/dl Hct (35-47) % MCV (78-100) fl MCH (26-32) pg MCHC (32-36) g/dl RDW (11.5-14.0) % Plt Count (150-450) K/mm3 MPV (6-9.5) fl Gran % (36.0-66.0) % Eos # (Auto) (0-0.5) Absolute Lymphs (auto) (1.0-4.6) Absolute Monos (auto) (0.0-1.3) Lymphocytes % (24.0-44.0) % Monocytes % (0.0-12.0) % Eosinophils % (0.00-5.0) % Basophils % (0.0-0.4) % Absolute Granulocytes (1.4-6.9) Basophils # (0-0.4) ESR (0-20) mm/hr PT 11.9 (9.95-12.35) SECONDS INR 1.02 (0.8-3.0) Sodium 139 (137-145) mmol/L Potassium 5.0 (3.5-5.1) mmol/L Chloride 104 (98-107) mmol/L Carbon Dioxide 27 (22-30) mmol/L Anion Gap 12.3 (5-15) MEQ/L BUN 13 (7-17) mg/dL Creatinine 0.99 (0.52-1.04) mg/dL Estimated GFR > 60.0 ML/MIN Glucose 138 H (74-106) mg/dL Calcium 9.5 (8.4-10.2) mg/dL Total Bilirubin 0.40 (0.2-1.3) mg/dL AST 31 (14-36) U/L ALT 13 (0-35) U/L Alkaline Phosphatase 73 (38-126) U/L Creatine Kinase 53 (30-135) U/L Troponin I < 0.012 (0.000-0.034) ng/mL NT-Pro-B Natriuret Pep 257 (0-900) pg/mL Serum Total Protein 7.5 (6.3-8.2) g/dL Albumin 3.9 (3.5-5.0) g/dL Ur Collection Type Urine Color (YELLOW) Urine Appearance (CLEAR) Urine pH (5-6) Ur Specific [place] (1.005-1.025) Urine Protein (Negative) Urine Ketones (NEGATIVE) Urine Blood (0-5) Camron/ul Urine Nitrite (NEGATIVE) Urine Bilirubin (NEGATIVE) Urine Urobilinogen (0-1) mg/dL Ur Leukocyte Esterase (NEGATIVE) Urine Culture Reflexed (NO) Urine Glucose (NEGATIVE) mg/dL Specimen Received 04/13/18 Range/Units 22:25 WBC 4.1 (4.0-10.5) K/mm3 RBC 4.84 (4.1-5.4) M/mm3 Hgb 12.3 (12.0-16.0) gm/dl Hct 39.1 (35-47) % MCV 80.8 (78-100) fl MCH 25.4 L (26-32) pg MCHC 31.5 L (32-36) g/dl RDW 17.6 H (11.5-14.0) % Plt Count 214 (150-450) K/mm3 MPV 11.1 H (6-9.5) fl Gran % 50.3 (36.0-66.0) % Eos # (Auto) 0.11 (0-0.5) Absolute Lymphs (auto) 1.53 (1.0-4.6) Absolute Monos (auto) 0.35 (0.0-1.3) Lymphocytes % 37.7 (24.0-44.0) % Monocytes % 8.6 (0.0-12.0) % Eosinophils % 2.7 (0.00-5.0) % Basophils % 0.7 (0.0-0.4) % Absolute Granulocytes 2.04 (1.4-6.9) Basophils # 0.03 (0-0.4) ESR (0-20) mm/hr PT (9.95-12.35) SECONDS INR (0.8-3.0) Sodium (137-145) mmol/L Potassium (3.5-5.1) mmol/L Chloride (98-107) mmol/L Carbon Dioxide (22-30) mmol/L Anion Gap (5-15) MEQ/L BUN (7-17) mg/dL Creatinine (0.52-1.04) mg/dL Estimated GFR ML/MIN Glucose (74-106) mg/dL Calcium (8.4-10.2) mg/dL Total Bilirubin (0.2-1.3) mg/dL AST (14-36) U/L ALT (0-35) U/L Alkaline Phosphatase (38-126) U/L Creatine Kinase (30-135) U/L Troponin I (0.000-0.034) ng/mL NT-Pro-B Natriuret Pep (0-900) pg/mL Serum Total Protein (6.3-8.2) g/dL Albumin (3.5-5.0) g/dL Ur Collection Type Urine Color (YELLOW) Urine Appearance (CLEAR) Urine pH (5-6) Ur Specific [place] (1.005-1.025) Urine Protein (Negative) Urine Ketones (NEGATIVE) Urine Blood (0-5) Camron/ul Urine Nitrite (NEGATIVE) Urine Bilirubin (NEGATIVE) Urine Urobilinogen (0-1) mg/dL Ur Leukocyte Esterase (NEGATIVE) Urine Culture Reflexed (NO) Urine Glucose (NEGATIVE) mg/dL Specimen Received - Progress Progress: improved Air Movement: good Progress Note: 04/14/18 02:01 Pt states, she feels better, headaches resolved, BP 145/85, afebrile, stable, I discussed our results with her, she is being discharged in stable condition, to follow up with her doctor next week, she was given Clonidine 0.1 mg BID PRN for BP > 200/120, advised to return if severe headaches, vomiting, chest pain, or BP > 220/130 ! Blood Culture(s) Obtained: No Antibiotics given: No Counseled pt/family regarding: lab results, diagnosis, need for follow-up, rad results - Departure Time of Disposition: 02:03 Departure Disposition: Home Clinical Impression: Frequent headaches Hypertension Qualifiers: Hypertension type: unspecified Qualified Code(s): I10 - Essential (primary) hypertension Condition: Stable Critical Care Time: No Referrals: JOON RABAGO MD [Primary Care Provider] - Instructions: Malignant Hypertension (DC), Migraine Headache (DC), Tension Headache (DC) Additional Instructions: Rest x 2-3 days, follow up with your doctor next week, return if severe headaches, chest pain, vomiting, blood pressure > 220/130! Prescriptions: Clonidine HCl 0.1 mg [Catapres 0.1 MG] 0.1 mg PO BID PRN #20 tablet PRN Reason: Elevated Blood Pressure
[2018-04-13 22:29] LABS: BASOPHIL % 0.7 % (0.0-0.4); Basophil (Absolute #) 0.03 (0-0.4); Eosinophil % 2.7 % (0.00-5.0); Eosinophil (Absolute #) 0.11 (0-0.5); Granulocyte Absolute (ANC) 2.04 (1.4-6.9); Granulocytes % 50.3 % (36.0-66.0); Hematocrit 39.1 % (35-47); Hemoglobin 12.3 gm/dl (12.0-16.0); Lymphocyte (Absolute #) 1.53 (1.0-4.6); Lymphocytes % 37.7 % (24.0-44.0); Mean Cell Volume 80.8 fl (78-100); Mean Corpuscular Hemoglobin 25.4 pg (26-32); Mean Corpuscular Hgb Concent. 31.5 g/dl (32-36); Mean Platelet Volume 11.1 fl (6-9.5); Monocyte (Absolute #) 0.35 (0.0-1.3); Monocytes % 8.6 % (0.0-12.0); Platelet Count 214 K/mm3 (150-450); Red Blood Count 4.84 M/mm3 (4.1-5.4); Red Cell Distribution Width 17.6 % (11.5-14.0); White Blood Count 4.1 K/mm3 (4.0-10.5)
[2018-04-13] MEDS ORDERED: Zofran 4 MG/2 ML VIAL ONE (22:30)
[2018-04-13] MEDS ORDERED: Catapres 0.1 MG ONE (22:31)
[2018-04-13] MEDS ORDERED: PERCOCET TABLET 5/325MG ONE (22:31)
[2018-04-13] MEDS ORDERED: Ativan 1 MG ONE (22:31)
[2018-04-13 22:44] VITALS: PULSE 78
[2018-04-13 22:57] LABS: INR 1.02 (0.8-3.0)
[2018-04-13 23:02] LABS: ALBUMIN 3.9 g/dL (3.5-5.0); ALKALINE PHOSPHATASE 73 U/L (38-126); ANION GAP 12.3 MEQ/L (5-15); BLOOD UREA NITROGEN 13 mg/dL (7-17); CHLORIDE 104 mmol/L (98-107); CK-Creatinine Phosphokinase 53 U/L (30-135); Calcium 9.5 mg/dL (8.4-10.2); Carbon Dioxide 27 mmol/L (22-30); Creatinine 1 0.99 mg/dL (0.52-1.04); Glucose 138 mg/dL (74-106); SGOT/AST 31 U/L (14-36); SGPT/ALT 13 U/L (0-35); SODIUM 139 mmol/L (137-145); Total Protein 7.5 g/dL (6.3-8.2)
[2018-04-13 23:10] LABS: NT PRO BNP 257 pg/mL (0-900)
[2018-04-13 23:23] LABS: Appearance CLEAR (CLEAR)
[2018-04-13 23:24] LABS: Bilirubin NEGATIVE (NEGATIVE); Blood NEGATIVE Ery/ul (0-5); Glucose NEGATIVE (NEGATIVE); Ketones NEGATIVE (NEGATIVE); Leukocyte Esterase NEGATIVE (NEGATIVE); Nitrite NEGATIVE (NEGATIVE); Protein,Urine Dip NEGATIVE (Negative); Urobilinogen NORMAL mg/dL (0-1)
[2018-04-13] MEDS ORDERED: MORPHINE SULFATE 4 MG INJ IV ONE (23:39)
[2018-04-13] MEDS ORDERED: MORPHINE SULFATE 4 MG INJ ONE (23:43)
[2018-04-14 02:05] VITALS: BP 156/86
[2018-04-14 02:06] VITALS: O2SAT 98
--- NOTE | 2018-04-14 07:27 | XRAY ---
Indication: Cough. Comparison: March 07, 2018. Portable chest unchanged again with lingular infiltrate/atelectasis, CABG surgery, and bilateral shoulder arthroplasty. No new cardiopulmonary abnormalities.
--- NOTE | 2018-04-14 07:29 | XRAY ---
Indication: Headache. Multiple contiguous axial images obtained through the head without contrast. Comparison: December 28, 2017. Stable global atrophy, minimal periventricular degenerative micro-ischemia, and remote left caudate lacunar infarct. Again no acute intracranial hemorrhage, abnormal extra-axial fluid collection, or mass effect. Fourth ventricle is midline without hydrocephalus. Bony calvarium intact. Visualized paranasal sinuses and mastoid air cells are clear. Impression: Stable nonacute senile brain with remote left caudate lacunar infarct. Comment: Preliminary interpretation was made by [facility]. No critical discrepancy. CTDI 69.38
== END 2018-04-14 02:17 | disposition home or self-care (01) ==
LOC: ED 21:43
DX: R51 Headache (principal); I10 Essential (primary) hypertension; Z79.899 Other long term (current) drug therapy
CPT/HCPCS: 36000; 36415; 70450; 71045; 80053; 81002; 82550; 83880; 84484; 85025; 85610; 85652; 93005; 96374; 96375; 99284; J2270; J2405; A9270-GY

== ENCOUNTER 2018-11-07 00:13 | Emergency (ER) | payer MEDICARE ==
--- NOTE | 2018-11-07 00:47 | ERPHSYRPT ---
- History of Present Illness Time Seen by Provider: 11/07/18 00:38 Source: patient Exam Limitations: no limitations Patient Subjective Stated Complaint: pt is alert and oriented. pt brought in via wheelchair. pt states she has had increased weakness the past several days. pt states she's had a headache in the frontal area of her head, body aches, and increasing pain from her normal pain. pt states blurry vision associated with headache. pt pupils are equal and round and sluggish to react. Triage Nursing Assessment: see above Physician History: The patient is a 63-year-old female with her son with multiple complaints. Her main complaint is that of a right-sided frontal headache that has been causing her problems for 2 days. She states it feels like is pushing her eyeball out of her head. She tells me she fell in mid August not striking her head. She had a broken right fibula from the fall. Ever since then, she has not felt well. Her back is hurting more since the fall. For the last few weeks she has felt weaker than normal. She denies nausea, vomiting, or diarrhea. She denies chest pain. She denies shortness of breath. Her past medical history is significant for CAD, COPD, HTN, DM, hepatitis C, frequent headaches. Timing/Duration: day(s) (2), gradual onset, worse Severity: moderate Modifying Factors: Improves With: nothing Associated Symptoms: headaches, malaise, weakness, No nausea, No vomiting, No abdominal pain, No shortness of breath, No heartburn, No diaphoresis, No chest pain, No fever Allergies/Adverse Reactions: ibuprofen Allergy (Verified 03/08/18 00:09) NSAIDS (Non-Steroidal Anti-Inflamma Allergy (Verified 03/08/18 00:09) Penicillins Allergy (Verified 03/08/18 00:09) Home Medications: Meclizine HCl 25 mg [Antivert 25 mg] 25 mg PO TIDPRN PRN 03/28/16 [History ] PANTOPRAZOLE 40 mg Tablet [Protonix 40MG Tablet] 40 mg PO DAILY 03/28/16 [ History] Tizanidine HCl 4 mg [Zanaflex 4 MG] 4 mg PO TIDPRN PRN 03/28/16 [History] Atorvastatin Calcium 40 mg PO DAILY 03/29/16 [History] Oxycodone HCl Cr 20 mg [Oxycontin 20 MG ER] 20 mg PO BID 04/11/17 [History ] Lorazepam 0.5 mg [Ativan 0.5 MG] 0.5 mg PO DAILY PRN 12/28/17 [History] Gabapentin Enacarbil [Horizant] 900 mg PO TID 03/08/18 [History] Oxycodone HCl/Acetaminophen [Percocet 7.5-325 mg Tablet] 1 each PO BID 03/08/18 [History] Hx Tetanus, Diphtheria Vaccination/Date Given: Yes Hx Influenza Vaccination/Date Given: Yes Hx Pneumococcal Vaccination/Date Given: Yes Immunizations Up to Date: Yes - Review of Systems Constitutional: Weakness Eyes: No Symptoms Ears, Nose, & Throat: No Symptoms Respiratory: No Cough, No Dyspnea Cardiac: No Chest Pain, No Edema, No Syncope Abdominal/Gastrointestinal: No Abdominal Pain, No Nausea, No Vomiting, No Diarrhea Genitourinary Symptoms: No Dysuria Musculoskeletal: No Back Pain, No Neck Pain Skin: No Rash Neurological: Headache Psychological: No Symptoms Endocrine: No Symptoms Hematologic/Lymphatic: No Symptoms Immunological/Allergic: No Symptoms All Other Systems: Reviewed and Negative - Past Medical History Pertinent Past Medical History: Yes Neurological History: Migraines, TIA ENT History: Cataracts Cardiac History: Coronary Artery Disease Respiratory History: No Pertinent History Endocrine Medical History: Other Musculoskeletal History: No Pertinent History GI Medical History: Gallbladder Disease History: No Pertinent History Psycho-Social History: Anxiety, Depression Female Reproductive Disorders: No Pertinent History Other Medical History: chronic pain,anemia, hepatitis c viral free for 4 yrs. - Past Surgical History Past Surgical History: Yes Neuro Surgical History: No Pertinent History Cardiac: CABG, Vascular Surgery Respiratory: No Pertinent History Gastrointestinal: Cholecystectomy Genitourinary: No Pertinent History Musculoskeletal: Joint Replacement, Orthopedic Surgery Female Surgical History: Hysterectomy Other Surgical History: Bilateral SHOULDERS, BACK,left knee, lt carotid - Social History Smoking Status: Current every day smoker How long have you smoked: 53 years Exposure to second hand smoke: Yes Drug Use: marijuana Patient Lives Alone: No - Female History Hx Now: No - Nursing Vital Signs Nursing Vital Signs: Initial Vital Signs Temperature 98.7 F 11/07/18 00:19 Pulse Rate 70 11/07/18 00:19 Respiratory Rate 16 01/17/19 00:19 Blood Pressure 115/78 11/07/18 00:19 O2 Sat by Pulse Oximetry 92 L 11/07/18 00:19 Pain Scale Pain Intensity 8 - Physical Exam General Appearance: mild distress, obese Eye Exam: PERRL/EOMI, photophobia Ears, Nose, Throat Exam: normal ENT inspection, TMs normal, pharynx normal, moist mucous membranes Neck Exam: normal inspection, non-tender, supple, full range of motion Respiratory Exam: normal breath sounds, lungs clear, No respiratory distress Cardiovascular Exam: regular rate/rhythm, normal heart sounds, normal peripheral pulses Gastrointestinal/Abdomen Exam: soft, normal bowel sounds, No tenderness, No mass Pelvic Exam: not done Rectal Exam: not done Back Exam: normal inspection, normal range of motion, No CVA tenderness, No vertebral tenderness Extremity Exam: normal inspection, normal range of motion, pelvis stable Neurologic Exam: alert, oriented x 3, cooperative, normal mood/affect, nml cerebellar function, nml station & gait, sensation nml, No motor deficits Skin Exam: normal color, warm, dry, No rash Lymphatic Exam: No adenopathy SpO2 Interpretation: normal SpO2: 92 Oxygen Delivery: Room Air - Course EKG Interpreted by Me: RATE, Sinus Rhythm, NORMAL AXIS, NORMAL INTERVALS, NORMAL QRS, NORMAL ST-T, Other (no change in EKG comp to EKG from 04/14/18.) - CT Exams Head CT Interpretation: Negative, Tele-radiologist Report (per Dr Dallas), No/ Intracranial Hemorrhag Ordered Tests: Active Orders 24 hr Category Date Time Status Clean Catch Urine Specimen STAT Care 11/07/18 00:52 Active EKG-ER Only STAT Care 11/07/18 00:52 Active IV Insertion STAT Care 11/07/18 00:52 Active HEAD WITHOUT CONTRAST [CT] Stat Exams 11/07/18 00:54 Taken AMYLASE Stat Lab 11/07/18 00:58 Completed CBC W DIFF Stat Lab 11/07/18 00:58 Completed CMP Stat Lab 11/07/18 00:58 Completed CULTURE,URINE Stat Lab 11/07/18 01:28 Received LIPASE Stat Lab 11/07/18 00:58 Completed Lactic Acid Stat Lab 11/07/18 00:52 Completed TROPONIN Q3H Lab 11/07/18 00:58 Completed TROPONIN Q3H Lab 11/07/18 04:00 Ordered TROPONIN Q3H Lab 11/07/18 07:00 Ordered TROPONIN Q3H Lab 11/07/18 10:00 Ordered TROPONIN Q3H Lab 11/07/18 13:00 Ordered UA W/RFX UR CULTURE Stat Lab 11/07/18 01:28 Completed Medication Summary Generic Name Dose Route Start Last Admin Trade Name Freq PRN Reason Stop Dose Admin Ceftriaxone Sodium/Dextrose 1 g in 50 mls @ 100 mls/hr 11/07/18 02:38 Rocephin 1 Gm-D5w 50 Ml Bag IV 11/07/18 03:07 STAT STA Discontinued Medications Generic Name Dose Route Start Last Admin Trade Name Freq PRN Reason Stop Dose Admin Sodium Chloride 1,000 mls @ 999 mls/hr 11/07/18 00:52 11/07/18 01:03 Sodium Chloride 0.9% 1000 Ml IV 11/07/18 01:52 999 mls/hr .Q1H1M STA Administration Sodium Chloride Confirm 11/07/18 00:59 Sodium Chloride 0.9% 1000 Ml Administered 11/07/18 01:00 Dose 1,000 mls @ ud .ROUTE .STK-MED ONE Morphine Sulfate 4 mg 11/07/18 00:52 11/07/18 01:04 Morphine Sulfate 4 Mg Inj IV 11/07/18 00:53 4 mg STAT ONE Administration Morphine Sulfate Confirm 11/07/18 00:59 Morphine Sulfate 4 Mg Inj Administered 11/07/18 01:00 Dose 4 mg .ROUTE .STK-MED ONE Promethazine HCl 12.5 mg 11/07/18 00:52 11/07/18 01:03 Phenergan 25 Mg Inj IV 11/07/18 00:53 12.5 mg STAT ONE Administration Promethazine HCl Confirm 11/07/18 00:58 Phenergan 25 Mg Inj Administered 11/07/18 00:59 Dose 25 mg .ROUTE .STK-MED ONE Lab/Rad Data: Laboratory Result Diagrams 11/07/18 00:58 11/07/18 00:58 Laboratory Results 11/07/18 11/07/18 11/07/18 Range/Units 01:28 00:58 00:58 WBC (4.0-10.5) K/mm3 RBC (4.1-5.4) M/mm3 Hgb (12.0-16.0) gm/dl Hct (35-47) % MCV (78-100) fl MCH (26-32) pg MCHC (32-36) g/dl RDW (11.5-14.0) % Plt Count (150-450) K/mm3 MPV (6-9.5) fl Gran % (36.0-66.0) % Eos # (Auto) (0-0.5) Absolute Lymphs (auto) (1.0-4.6) Absolute Monos (auto) (0.0-1.3) Lymphocytes % (24.0-44.0) % Monocytes % (0.0-12.0) % Eosinophils % (0.00-5.0) % Basophils % (0.0-0.4) % Absolute Granulocytes (1.4-6.9) Basophils # (0-0.4) Sodium 138 (137-145) mmol/L Potassium 4.4 (3.5-5.1) mmol/L Chloride 103 (98-107) mmol/L Carbon Dioxide 27 (22-30) mmol/L Anion Gap 12.5 (5-15) MEQ/L BUN 18 H (7-17) mg/dL Creatinine 1.38 H (0.52-1.04) mg/dL Estimated GFR 40.8 ML/MIN Glucose 137 H (74-106) mg/dL Lactic Acid (0.4-2.0) Calcium 9.4 (8.4-10.2) mg/dL Total Bilirubin 0.30 (0.2-1.3) mg/dL AST 21 (14-36) U/L ALT 16 (0-35) U/L Alkaline Phosphatase 95 (38-126) U/L Troponin I < 0.012 (0.000-0.034) ng/mL Serum Total Protein 7.6 (6.3-8.2) g/dL Albumin 4.0 (3.5-5.0) g/dL Amylase 73 (30-110) U/L Lipase 152 (23-300) U/L Urine Color YELLOW (YELLOW) Urine Appearance CLOUDY (CLEAR) Urine pH 5.0 (5-6) Ur Specific [place] 1.019 (1.005-1.025) Urine Protein NEGATIVE (Negative) Urine Ketones NEGATIVE (NEGATIVE) Urine Blood NEGATIVE (0-5) Camron/ul Urine Nitrite POSITIVE (NEGATIVE) Urine Bilirubin NEGATIVE (NEGATIVE) Urine Urobilinogen NEGATIVE (0-1) mg/dL Ur Leukocyte Esterase LARGE (NEGATIVE) Urine WBC (Auto) >100 (0-5) /HPF Urine RBC (Auto) 11-15 (0-2) /HPF U Hyaline Cast (Auto) 6-10 (0-2) /LPF U Epithel Cells (Auto) FEW (FEW) /HPF Urine Bacteria (Auto) MODERATE (NEGATIVE) /HPF Unidentified Crystals 25-50 (NEGATIVE) /HPF Other Casts (Auto) 2-5 (NEGATIVE) /LPF Urine Mucus (Auto) SLIGHT (NEGATIVE) /HPF Urine Culture Reflexed YES (NO) Urine Glucose NEGATIVE (NEGATIVE) mg/dL 11/07/18 11/07/18 Range/Units 00:58 00:52 WBC 4.8 (4.0-10.5) K/mm3 RBC 4.63 (4.1-5.4) M/mm3 Hgb 12.3 (12.0-16.0) gm/dl Hct 39.4 (35-47) % MCV 85.1 (78-100) fl MCH 26.6 (26-32) pg MCHC 31.2 L (32-36) g/dl RDW 15.8 H (11.5-14.0) % Plt Count 237 (150-450) K/mm3 MPV 12.2 H (6-9.5) fl Gran % 54.6 (36.0-66.0) % Eos # (Auto) 0.18 (0-0.5) Absolute Lymphs (auto) 1.64 (1.0-4.6) Absolute Monos (auto) 0.34 (0.0-1.3) Lymphocytes % 33.9 (24.0-44.0) % Monocytes % 7.0 (0.0-12.0) % Eosinophils % 3.7 (0.00-5.0) % Basophils % 0.8 (0.0-0.4) % Absolute Granulocytes 2.64 (1.4-6.9) Basophils # 0.04 (0-0.4) Sodium (137-145) mmol/L Potassium (3.5-5.1) mmol/L Chloride (98-107) mmol/L Carbon Dioxide (22-30) mmol/L Anion Gap (5-15) MEQ/L BUN (7-17) mg/dL Creatinine (0.52-1.04) mg/dL Estimated GFR ML/MIN Glucose (74-106) mg/dL Lactic Acid 1.7 (0.4-2.0) Calcium (8.4-10.2) mg/dL Total Bilirubin (0.2-1.3) mg/dL AST (14-36) U/L ALT (0-35) U/L Alkaline Phosphatase (38-126) U/L Troponin I (0.000-0.034) ng/mL Serum Total Protein (6.3-8.2) g/dL Albumin (3.5-5.0) g/dL Amylase (30-110) U/L Lipase (23-300) U/L Urine Color (YELLOW) Urine Appearance (CLEAR) Urine pH (5-6) Ur Specific [place] (1.005-1.025) Urine Protein (Negative) Urine Ketones (NEGATIVE) Urine Blood (0-5) Camron/ul Urine Nitrite (NEGATIVE) Urine Bilirubin (NEGATIVE) Urine Urobilinogen (0-1) mg/dL Ur Leukocyte Esterase (NEGATIVE) Urine WBC (Auto) (0-5) /HPF Urine RBC (Auto) (0-2) /HPF U Hyaline Cast (Auto) (0-2) /LPF U Epithel Cells (Auto) (FEW) /HPF Urine Bacteria (Auto) (NEGATIVE) /HPF Unidentified Crystals (NEGATIVE) /HPF Other Casts (Auto) (NEGATIVE) /LPF Urine Mucus (Auto) (NEGATIVE) /HPF Urine Culture Reflexed (NO) Urine Glucose (NEGATIVE) mg/dL - Progress Progress: improved Counseled pt/family regarding: lab results, diagnosis, need for follow-up, rad results - Departure Time of Disposition: 02:50 Departure Disposition: Home Clinical Impression: UTI (urinary tract infection), Headache Condition: Stable Critical Care Time: No Referrals: JOON RABAGO MD [Primary Care Provider] - Additional Instructions: You have a UTI that has also caused a headache. You were given Phenergan 12.5 mg, morphine 4 mg, Rocephin 1 g, and fluids by IV in the ER. Take ciprofloxacin 500 mg 2 times a day for 7 days. Follow-up with your primary medical doctor on Sunday. Prescriptions: Ciprofloxacin [Cipro 500 MG] 500 mg PO BID #14 tablet
[2018-11-07] MEDS ORDERED: MORPHINE SULFATE 4 MG INJ IV ONE (00:52)
[2018-11-07] MEDS ORDERED: Phenergan 25 MG INJ IV ONE (00:52)
[2018-11-07] MEDS ORDERED: Sodium Chloride 0.9% 1000 ML 1,000 ML IV STA (00:52)
[2018-11-07] MEDS ORDERED: Phenergan 25 MG INJ ONE (00:58)
[2018-11-07] MEDS ORDERED: MORPHINE SULFATE 4 MG INJ ONE (00:59)
[2018-11-07] MEDS ORDERED: Sodium Chloride 0.9% 1000 ML 1,000 ML ONE (00:59)
[2018-11-07 01:08] LABS: BASOPHIL % 0.8 % (0.0-0.4); Basophil (Absolute #) 0.04 (0-0.4); Eosinophil % 3.7 % (0.00-5.0); Eosinophil (Absolute #) 0.18 (0-0.5); Granulocytes % 54.6 % (36.0-66.0); Hematocrit 39.4 % (35-47); Hemoglobin 12.3 gm/dl (12.0-16.0); Lymphocyte (Absolute #) 1.64 (1.0-4.6); Lymphocytes % 33.9 % (24.0-44.0); Mean Cell Volume 85.1 fl (78-100); Mean Corpuscular Hemoglobin 26.6 pg (26-32); Mean Corpuscular Hgb Concent. 31.2 g/dl (32-36); Mean Platelet Volume 12.2 fl (6-9.5); Monocyte (Absolute #) 0.34 (0.0-1.3); Platelet Count 237 K/mm3 (150-450); Red Blood Count 4.63 M/mm3 (4.1-5.4); Red Cell Distribution Width 15.8 % (11.5-14.0); White Blood Count 4.8 K/mm3 (4.0-10.5)
[2018-11-07 01:26] VITALS: PULSE 74
[2018-11-07 01:27] LABS: ANION GAP 12.5 MEQ/L (5-15); BILIRUBIN,TOTAL 0.3 mg/dL (0.2-1.3); Calcium 9.4 mg/dL (8.4-10.2); Creatinine 1 1.38 mg/dL (0.52-1.04); Potassium 4.4 mmol/L (3.5-5.1); Total Protein 7.6 g/dL (6.3-8.2)
[2018-11-07 01:58] LABS: Appearance CLOUDY (CLEAR); Bacteria MODERATE /HPF (NEGATIVE); Bilirubin NEGATIVE (NEGATIVE); Blood NEGATIVE Ery/ul (0-5); Crystals Unidentified 25-50 /HPF (NEGATIVE); Epithelial Cells FEW /HPF (FEW); Glucose NEGATIVE (NEGATIVE); Ketones NEGATIVE (NEGATIVE); Leukocyte Esterase LARGE (NEGATIVE); Mucus SLIGHT /HPF (NEGATIVE); Nitrite POSITIVE (NEGATIVE); Protein,Urine Dip NEGATIVE (Negative); Specific Gravity 1.019 (1.005-1.025); Urobilinogen NEGATIVE mg/dL (0-1); WBC >100 /HPF (0-5)
[2018-11-07 02:05] VITALS: BP 115/64
[2018-11-07] MEDS ORDERED: ROCEPHIN 1 Gm-D5w 50 ml Bag** 1 G/50 ML IVPB IV STA (02:38)
[2018-11-07 02:40] VITALS: O2SAT 92
[2018-11-07] MEDS ORDERED: ROCEPHIN 1 Gm-D5w 50 ml Bag** 1 G/50 ML IVPB IV ONE (02:52)
--- NOTE | 2018-11-07 08:58 | XRAY ---
Indication: Headache. History of migraines. Multiple contiguous axial images obtained through the head without contrast. Comparison: April 13, 2018. Stable age-appropriate global atrophy, minimal periventricular degenerative micro-ischemia, and remote left caudate lacunar infarct. No acute intracranial hemorrhage, abnormal extra-axial fluid collection, or mass effect. Fourth ventricle is midline without hydrocephalus. [place]-white matter differentiation preserved. Bony calvarium intact. Visualized paranasal sinuses and mastoid air cells are clear. Impression: Stable nonacute senile brain with remote left caudate lacunar infarct. Comment: Preliminary interpretation was made by [facility]. No discrepancy. CT DI 70.77
== END 2018-11-07 03:47 | disposition home or self-care (01) ==
LOC: ED 00:13
DX: N39.0 Urinary tract infection, site not specified (principal); R51 Headache; I25.10 Atherosclerotic heart disease of native coronary artery without angina pectoris; J44.9 Chronic obstructive pulmonary disease, unspecified; I10 Essential (primary) hypertension; E11.9 Type 2 diabetes mellitus without complications; B19.20 Unspecified viral hepatitis C without hepatic coma; R53.1 Weakness; Z79.899 Other long term (current) drug therapy; Z86.73 Personal history of transient ischemic attack (TIA), and cerebral infarction without residual deficits
CPT/HCPCS: 36000; 36415; 70450; 80053; 81001; 82150; 83605; 83690; 84484; 85025; 87077; 87086; 87186; 93005; 96360; 96365; 96374; 96375; 99284; J0696; J2270; J2550

== ENCOUNTER 2018-11-16 22:32 | Emergency (ER) | payer MEDICARE ==
[2018-11-16 22:54] VITALS: BP 164/92; PULSE 85; O2SAT 96
--- NOTE | 2018-11-16 23:10 | ERPHSYRPT ---
- History of Present Illness Time Seen by Provider: 11/16/18 23:00 Source: patient, family Exam Limitations: no limitations Patient Subjective Stated Complaint: pt states she had bilateral hammer toe surgery in [place] last with doctor viridiana noriega. pt states she recieved no discharge instructions and now feels like the doctor is a quack. pt states she recieved no post op pain medication, and after performing research on the doctor he is not allowed to prescribe pain medication. pt is here to make sure her toes were not messed up and to recieve pain control. Triage Nursing Assessment: pt vocalizing with pain. pt breathing heavily and states pain comes and goes with extreme intensity. second third and fourth toes wrapped with coban from [facility] and pt is supposed to keep them wrapped until she sees him again on . ends of toes pink and slight bruising noted around all toes. Physician History: 63 y/o white female s/p "hammer toe surgery" last week. pt is in pain. pt is on oxycodone and oxycontin at home. pt wants xrays to evaluated surgical sites. Method of Injury: other (surgery recently) Occurred: days ago (2) Quality: aching Severity of Pain-Max: moderate Severity of Pain-Current: moderate Lower Extremities Pain: foot: bilateral, other: bilateral (toes that underwent surgery) Modifying Factors: Improves With: movement Associated Symptoms: none Allergies/Adverse Reactions: ibuprofen Allergy (Verified 11/16/18 23:45) NSAIDS (Non-Steroidal Anti-Inflamma Allergy (Verified 11/16/18 23:45) Penicillins Allergy (Verified 11/16/18 23:45) Home Medications: Meclizine HCl 25 mg [Antivert 25 mg] 25 mg PO TIDPRN PRN 03/28/16 [History ] PANTOPRAZOLE 40 mg Tablet [Protonix 40MG Tablet] 40 mg PO DAILY 03/28/16 [ History] Tizanidine HCl 4 mg [Zanaflex 4 MG] 4 mg PO TIDPRN PRN 03/28/16 [History] Atorvastatin Calcium 40 mg PO DAILY 03/29/16 [History] Oxycodone HCl Cr 20 mg [Oxycontin 20 MG ER] 20 mg PO BID 04/11/17 [History ] Lorazepam 0.5 mg [Ativan 0.5 MG] 0.5 mg PO DAILY PRN 12/28/17 [History] Gabapentin Enacarbil [Horizant] 900 mg PO TID 03/08/18 [History] Oxycodone HCl/Acetaminophen [Percocet 7.5-325 mg Tablet] 1 each PO BID 03/08/18 [History] Hx Tetanus, Diphtheria Vaccination/Date Given: Yes Hx Influenza Vaccination/Date Given: Yes Hx Pneumococcal Vaccination/Date Given: Yes Immunizations Up to Date: Yes - Review of Systems Constitutional: No Symptoms Eyes: No Symptoms Ears, Nose, & Throat: No Symptoms Respiratory: No Symptoms Cardiac: No Symptoms Abdominal/Gastrointestinal: No Symptoms Genitourinary Symptoms: No Symptoms Musculoskeletal: Other (painful surgical sites) Neurological: No Symptoms Psychological: Anxiety Endocrine: No Symptoms Hematologic/Lymphatic: No Symptoms Immunological/Allergic: No Symptoms All Other Systems: Reviewed and Negative - Past Medical History Pertinent Past Medical History: Yes Neurological History: Migraines, TIA ENT History: Cataracts Cardiac History: Coronary Artery Disease Respiratory History: No Pertinent History Endocrine Medical History: Other Musculoskeletal History: No Pertinent History GI Medical History: Gallbladder Disease History: No Pertinent History Psycho-Social History: Anxiety, Depression Female Reproductive Disorders: No Pertinent History Other Medical History: chronic pain,anemia, hepatitis c viral free for 4 yrs. - Past Surgical History Past Surgical History: Yes Neuro Surgical History: No Pertinent History Cardiac: CABG, Vascular Surgery Respiratory: No Pertinent History Gastrointestinal: Cholecystectomy Genitourinary: No Pertinent History Musculoskeletal: Joint Replacement, Orthopedic Surgery Female Surgical History: Hysterectomy Other Surgical History: Bilateral SHOULDERS, BACK,left knee, lt carotid - Social History Smoking Status: Current every day smoker How long have you smoked: 53 years Exposure to second hand smoke: Yes Drug Use: marijuana Patient Lives Alone: No - Female History Hx Last Menstrual Period: na Hx Now: No - Nursing Vital Signs Nursing Vital Signs: Initial Vital Signs Temperature 97.5 F 11/16/18 22:40 Pulse Rate 85 11/16/18 22:40 Respiratory Rate 18 11/16/18 22:40 Blood Pressure 164/92 11/16/18 22:40 O2 Sat by Pulse Oximetry 96 11/16/18 22:40 Pain Scale Pain Intensity 10 - Physical Exam General Appearance: mild distress, alert, anxiety Eyes, Ears, Nose, Throat Exam: normal ENT inspection Neck Exam: normal inspection, non-tender, supple, full range of motion Cardiovascular/Respiratory Exam: chest non-tender, normal breath sounds, regular rate/rhythm, heart sounds normal Gastrointestinal/Abdominal Exam: non-tender, soft, No guarding, No tenderness Back Exam: normal inspection, normal range of motion, No CVA tenderness, No vertebral tenderness Hips Exam: bilateral: non-tender, normal inspection, normal range of motion, no evidence of injury Legs Exam: bilateral leg: non-tender, normal inspection, normal range of motion , no evidence of injury Knees Exam: bilateral knee: non-tender, normal inspection, normal range of motion, no evidence of injury Ankle Exam: bilateral ankle: non-tender, normal inspection, normal range of motion, no evidence of injury Foot Exam: bilateral foot: normal range of motion, pain, other (surgical sites with bandages in place. no cellulitis no odor. palp pedal pulses bilat) Neuro/Tendon Exam: normal sensation, normal motor functions Mental Status Exam: alert, oriented x 3, cooperative Skin Exam: normal color, warm, dry SpO2 Interpretation: normal SpO2: 96 O2 Delivery: Room Air - Course Nursing assessment & vital signs reviewed: Yes Ordered Tests: Active Orders 24 hr Category Date Time Status FOOT (MINIMUM 3 VIEWS) Stat Exams 11/16/18 23:10 Taken FOOT (MINIMUM 3 VIEWS) Stat Exams 11/16/18 23:12 Taken Medication Summary Discontinued Medications Generic Name Dose Route Start Last Admin Trade Name Luz Maria PRN Reason Stop Dose Admin Hydromorphone HCl 0.5 mg 11/16/18 23:51 11/17/18 00:05 Hydromorphone 1 Mg/Ml Ampule IM 11/16/18 23:52 0.5 mg STAT ONE Administration Hydromorphone HCl Confirm 11/17/18 00:03 Hydromorphone 1 Mg/Ml Ampule Administered 11/17/18 00:04 Dose 1 mg .ROUTE .STK-MED ONE Promethazine HCl 12.5 mg 11/16/18 23:51 11/17/18 00:09 Phenergan 25 Mg Inj IM 11/16/18 23:52 12.5 mg STAT ONE Administration Promethazine HCl Confirm 11/17/18 00:03 Phenergan 25 Mg Inj Administered 11/17/18 00:04 Dose 25 mg .ROUTE .STK-MED ONE - Progress Progress: improved, pain not gone completely, re-examined Progress Note: 11/17/18 00:40 post surgical bilat feet xrays-no acute processes Counseled pt/family regarding: diagnosis, need for follow-up, rad results - Departure Time of Disposition: 00:41 Departure Disposition: Home Clinical Impression: Acute postoperative pain of left foot, Acute postoperative pain of right foot Condition: Stable Critical Care Time: No Referrals: JOON RABAGO MD [Primary Care Provider] - Additional Instructions: continue your medications and postoperative instructions as prescribed. follow up with your surgeon Sunday11/18/18
[2018-11-16] MEDS ORDERED: Hydromorphone 1 mg/ml Ampule IM ONE (23:51)
[2018-11-16] MEDS ORDERED: Phenergan 25 MG INJ IM ONE (23:51)
[2018-11-17] MEDS ORDERED: Phenergan 25 MG INJ ONE (00:03)
[2018-11-17] MEDS ORDERED: Hydromorphone 1 mg/ml Ampule ONE (00:03)
--- NOTE | 2018-11-17 07:50 | XRAY ---
Indication: Pain. Comparison: None 3 nonweightbearing views of the right foot demonstrates osteopenia, small heel spurs, and sclerosis/remodeling of the 1st proximal phalanx. Subcortical sclerosis of the calcaneus, talus, and distal tibia probably degenerative with bone infarct not completely excluded. No other bony, articular, or soft tissue abnormalities. Comment: Preliminary interpretation was made by [facility]. No discrepancy.
--- NOTE | 2018-11-17 07:51 | XRAY ---
Indication: Pain. Comparison: None 3 nonweightbearing views of the left foot demonstrates osteopenia and small heel spurs. Subcortical sclerosis of the calcaneus, talus, and distal tibia probably degenerative with bone infarct not completely excluded. No other bony, articular, or soft tissue abnormalities. Comment: Preliminary interpretation was made by [facility]. No discrepancy.
== END 2018-11-17 01:15 | disposition home or self-care (01) ==
LOC: ED 22:32
DX: G89.18 Other acute postprocedural pain (principal); M79.672 Pain in left foot; M79.671 Pain in right foot
CPT/HCPCS: 73630; 96372; 99284; J1170; J2550

== ENCOUNTER 2018-12-12 10:35 | Emergency (ER) | payer MEDICARE ==
[2018-12-12] MEDS ORDERED: Sodium Chloride 0.9% 1000 ML 1,000 ML IV STA (10:38)
--- NOTE | 2018-12-12 10:38 | ERPHSYRPT ---
- History of Present Illness Time Seen by Provider: 12/12/18 10:36 Source: patient Exam Limitations: clinical condition Physician History: 63 y/o white female presents with report of sudden onset of headache, bilat eye pain, vomiting. family reported seizure activity at home but none on arrival. pt has h/o migraines, TIAs, vertigo and anxiety Timing/Duration: today Severity: moderate Character of Deficits: other (no deficits) Deficits: weak Baseline/Normal Cognition: alert oriented x 3 Current Cognition: alert oriented x 3 Baseline Gait: walks w/o assistance Associated Symptoms: nausea, vomiting, seizures (purported at home), headache Allergies/Adverse Reactions: ibuprofen Allergy (Verified 12/12/18 10:36) Hives NSAIDS (Non-Steroidal Anti-Inflamma Allergy (Verified 12/12/18 10:36) Hives Penicillins Allergy (Verified 12/12/18 10:36) Anaphylactic Reaction Home Medications: Meclizine HCl 25 mg [Antivert 25 mg] 25 mg PO TIDPRN PRN 03/28/16 [History ] PANTOPRAZOLE 40 mg Tablet [Protonix 40MG Tablet] 40 mg PO DAILY 03/28/16 [ History] Tizanidine HCl 4 mg [Zanaflex 4 MG] 4 mg PO TIDPRN PRN 03/28/16 [History] Atorvastatin Calcium 40 mg PO DAILY 03/29/16 [History] Oxycodone HCl Cr 20 mg [Oxycontin 20 MG ER] 20 mg PO BID 04/11/17 [History ] Lorazepam 0.5 mg [Ativan 0.5 MG] 0.5 mg PO DAILY PRN PRN 12/28/17 [History ] Oxycodone HCl/Acetaminophen [Percocet 7.5-325 mg Tablet] 1 each PO BID 03/08/18 [History] Pregabalin [Lyrica 150Mg] 150 mg PO DAILY 12/12/18 [History] Hx Tetanus, Diphtheria Vaccination/Date Given: Yes Hx Influenza Vaccination/Date Given: Yes Hx Pneumococcal Vaccination/Date Given: Yes - Review of Systems Constitutional: No Symptoms Eyes: Eye Pain Ears, Nose, & Throat: No Symptoms Respiratory: No Symptoms Cardiac: No Symptoms Abdominal/Gastrointestinal: Nausea, Vomiting Genitourinary Symptoms: No Symptoms Musculoskeletal: No Symptoms Skin: No Symptoms Neurological: Dizziness, Headache Psychological: No Symptoms Endocrine: No Symptoms Hematologic/Lymphatic: No Symptoms Immunological/Allergic: No Symptoms All Other Systems: Reviewed and Negative - Past Medical History Pertinent Past Medical History: Yes Neurological History: Migraines, TIA ENT History: Cataracts Cardiac History: Coronary Artery Disease Respiratory History: No Pertinent History Endocrine Medical History: Other Musculoskeletal History: No Pertinent History GI Medical History: Gallbladder Disease History: No Pertinent History Psycho-Social History: Anxiety, Depression Female Reproductive Disorders: No Pertinent History Other Medical History: chronic pain,anemia, hepatitis c viral free for 4 yrs. - Past Surgical History Past Surgical History: Yes Neuro Surgical History: No Pertinent History Cardiac: CABG, Vascular Surgery Respiratory: No Pertinent History Gastrointestinal: Cholecystectomy Genitourinary: No Pertinent History Musculoskeletal: Joint Replacement, Orthopedic Surgery Female Surgical History: Hysterectomy Other Surgical History: Bilateral SHOULDERS, BACK,left knee, lt carotid - Social History Smoking Status: Current every day smoker How long have you smoked: 53 years Exposure to second hand smoke: Yes Drug Use: marijuana Patient Lives Alone: No - Nursing Vital Signs Nursing Vital Signs: Initial Vital Signs Temperature 98.9 F 12/12/18 10:37 Pulse Rate 82 12/12/18 10:37 Respiratory Rate 18 12/12/18 10:37 Blood Pressure 135/86 12/12/18 10:37 O2 Sat by Pulse Oximetry 96 12/12/18 10:37 Pain Scale Pain Intensity 5 - [place] Coma Scale Best Eye Response (Pradip): (4) open spontaneously Best Verbal Response (Pradip): (5) oriented Best Motor Response (Pradip): (6) obeys commands [place] Total: 15 - Physical Exam General Appearance: moderate distress, alert, anxiety, obese Eye Exam: bilateral eye: normal inspection, PERRL, EOMI Ears, Nose, Throat Exam: normal ENT inspection, moist mucous membranes Neck Exam: normal inspection, non-tender, supple, full range of motion Respiratory: normal breath sounds, lungs clear, airway intact, No chest tenderness, No respiratory distress, No accessory muscle use, No rhonchi, No wheezing, No stridor Cardiovascular: regular rate/rhythm, normal heart sounds, normal peripheral pulses Gastrointestinal: soft, normal bowel sounds, No tenderness, No guarding, No rebound Pelvic Exam: not done Rectal Exam: not done Back Exam: normal inspection, normal range of motion, No CVA tenderness, No vertebral tenderness Extremity Exam: normal inspection, normal range of motion, pelvis stable Mental Status: alert, oriented x 3, 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[employer] Exam: normal hearing, normal speech, PERRL Motor/Sensory: no motor deficit, no sensory deficit Skin Exam: normal color, warm, dry SpO2 Interpretation: normal O2 Delivery: Room Air Ordered Tests: Active Orders 24 hr Category Date Time Status Accucheck STAT Care 12/12/18 10:38 Active Front End Loader Driver STAT Care 12/12/18 10:39 Active Clean Catch Urine Specimen STAT Care 12/12/18 10:38 Active EKG-ER Only STAT Care 12/12/18 10:38 Active IV Insertion STAT Care 12/12/18 10:38 Active Pulse Oximetry (ED) STAT Care 12/12/18 10:38 Active HEAD WITHOUT CONTRAST [CT] Stat Exams 12/12/18 10:38 Completed Alcohol [ETHYL ALCOHOL] Stat Lab 12/12/18 10:53 Completed CBC W DIFF Stat Lab 12/12/18 10:53 Completed CMP Stat Lab 12/12/18 10:53 Completed CULTURE,URINE Stat Lab 12/12/18 13:18 Received UA W/RFX UR CULTURE Stat Lab 12/12/18 13:18 Completed Urine Triage Profile Stat Lab 12/12/18 13:18 Completed Medication Summary Discontinued Medications Generic Name Dose Route Start Last Admin Trade Name Freq PRN Reason Stop Dose Admin Hydromorphone HCl 1 mg 12/12/18 12:42 12/12/18 12:47 Hydromorphone 1 Mg/Ml Ampule IV 12/12/18 12:43 1 mg STAT ONE Administration Hydromorphone HCl Confirm 12/12/18 12:44 Hydromorphone 1 Mg/Ml Ampule Administered 12/12/18 12:45 Dose 1 mg .ROUTE .STK-MED ONE Sodium Chloride 1,000 mls @ 999 mls/hr 12/12/18 10:38 12/12/18 12:22 Sodium Chloride 0.9% 1000 Ml IV 12/12/18 11:38 Infused .Q1H1M STA Infusion Sodium Chloride Confirm 12/12/18 10:44 Sodium Chloride 0.9% 1000 Ml Administered 12/12/18 10:45 Dose 1,000 mls @ ud .ROUTE .STK-MED ONE Lorazepam 1 mg 12/12/18 10:41 12/12/18 10:55 Ativan 2 Mg/1 Ml Vial IV 12/12/18 10:42 1 mg STAT ONE Administration Lorazepam Confirm 12/12/18 10:42 Ativan 2 Mg/1 Ml Vial Administered 12/12/18 10:43 Dose 2 mg .ROUTE .STK-MED ONE Ondansetron HCl 4 mg 12/12/18 10:40 12/12/18 10:55 Zofran 4 Mg/2 Ml Vial IV 12/12/18 10:41 4 mg STAT ONE Administration Ondansetron HCl Confirm 12/12/18 10:42 Zofran 4 Mg/2 Ml Vial Administered 12/12/18 10:43 Dose 4 mg .ROUTE .STK-MED ONE Lab/Rad Data: Laboratory Result Diagrams 12/12/18 10:53 12/12/18 10:53 Laboratory Results 12/12/18 12/12/18 12/12/18 Range/Units 13:18 13:18 10:53 WBC (4.0-10.5) K/mm3 RBC (4.1-5.4) M/mm3 Hgb (12.0-16.0) gm/dl Hct (35-47) % MCV (78-100) fl MCH (26-32) pg MCHC (32-36) g/dl RDW (11.5-14.0) % Plt Count (150-450) K/mm3 MPV (6-9.5) fl Gran % (36.0-66.0) % Eos # (Auto) (0-0.5) Absolute Lymphs (auto) (1.0-4.6) Absolute Monos (auto) (0.0-1.3) Lymphocytes % (24.0-44.0) % Monocytes % (0.0-12.0) % Eosinophils % (0.00-5.0) % Basophils % (0.0-0.4) % Absolute Granulocytes (1.4-6.9) Basophils # (0-0.4) Sodium (137-145) mmol/L Potassium (3.5-5.1) mmol/L Chloride (98-107) mmol/L Carbon Dioxide (22-30) mmol/L Anion Gap (5-15) MEQ/L BUN (7-17) mg/dL Creatinine (0.52-1.04) mg/dL Estimated GFR ML/MIN Glucose (74-106) mg/dL Calcium (8.4-10.2) mg/dL Total Bilirubin (0.2-1.3) mg/dL AST (14-36) U/L ALT (0-35) U/L Alkaline Phosphatase (38-126) U/L Serum Total Protein (6.3-8.2) g/dL Albumin (3.5-5.0) g/dL Urine Color YELLOW (YELLOW) Urine Appearance CLOUDY (CLEAR) Urine pH 5.0 (5-6) Ur Specific [place] 1.016 (1.005-1.025) Urine Protein 30 (Negative) Urine Ketones NEGATIVE (NEGATIVE) Urine Blood MODERATE (0-5) [place]/ul Urine Nitrite NEGATIVE (NEGATIVE) Urine Bilirubin NEGATIVE (NEGATIVE) Urine Urobilinogen NEGATIVE (0-1) mg/dL Ur Leukocyte Esterase LARGE (NEGATIVE) Urine WBC (Auto) >100 (0-5) /HPF Urine RBC (Auto) 26-50 (0-2) /HPF U Hyaline Cast (Auto) 3-5 (0-2) /LPF U Epithel Cells (Auto) RARE (FEW) /HPF Urine Bacteria (Auto) MODERATE (NEGATIVE) /HPF Urine Mucus (Auto) SLIGHT (NEGATIVE) /HPF Urine Culture Reflexed YES (NO) Urine Glucose NEGATIVE (NEGATIVE) mg/dL Urine Opiates Level POSITIVE (NEGATIVE) Ur Methadone NEGATIVE (NEGATIVE) Urine Barbiturates NEGATIVE (NEGATIVE) Ur Phencyclidine (PCP) NEGATIVE (NEGATIVE) Urine Amphetamine NEGATIVE (NEGATIVE) U Benzodiazepine Level NEGATIVE (NEGATIVE) Urine Cocaine NEGATIVE (NEGATIVE) Urine Marijuana (THC) NEGATIVE (NEGATIVE) Ethyl Alcohol < 10 (0-10) mg/dL 12/12/18 12/12/18 Range/Units 10:53 10:53 WBC 9.2 (4.0-10.5) K/mm3 RBC 4.81 (4.1-5.4) M/mm3 Hgb 12.3 (12.0-16.0) gm/dl Hct 40.3 (35-47) % MCV 83.8 (78-100) fl MCH 25.6 L (26-32) pg MCHC 30.5 L (32-36) g/dl RDW 15.7 H (11.5-14.0) % Plt Count 329 (150-450) K/mm3 MPV 11.9 H (6-9.5) fl Gran % 50.9 (36.0-66.0) % Eos # (Auto) 0.37 (0-0.5) Absolute Lymphs (auto) 3.24 (1.0-4.6) Absolute Monos (auto) 0.85 (0.0-1.3) Lymphocytes % 35.3 (24.0-44.0) % Monocytes % 9.3 (0.0-12.0) % Eosinophils % 4.0 (0.00-5.0) % Basophils % 0.5 (0.0-0.4) % Absolute Granulocytes 4.66 (1.4-6.9) Basophils # 0.05 (0-0.4) Sodium 137 (137-145) mmol/L Potassium 4.2 (3.5-5.1) mmol/L Chloride 104 (98-107) mmol/L Carbon Dioxide 23 (22-30) mmol/L Anion Gap 14.6 (5-15) MEQ/L BUN 17 (7-17) mg/dL Creatinine 1.27 H (0.52-1.04) mg/dL Estimated GFR 44.9 ML/MIN Glucose 114 H (74-106) mg/dL Calcium 9.5 (8.4-10.2) mg/dL Total Bilirubin 0.50 (0.2-1.3) mg/dL AST 22 (14-36) U/L ALT 15 (0-35) U/L Alkaline Phosphatase 98 (38-126) U/L Serum Total Protein 7.9 (6.3-8.2) g/dL Albumin 4.1 (3.5-5.0) g/dL Urine Color (YELLOW) Urine Appearance (CLEAR) Urine pH (5-6) Ur Specific [place] (1.005-1.025) Urine Protein (Negative) Urine Ketones (NEGATIVE) Urine Blood (0-5) Camron/ul Urine Nitrite (NEGATIVE) Urine Bilirubin (NEGATIVE) Urine Urobilinogen (0-1) mg/dL Ur Leukocyte Esterase (NEGATIVE) Urine WBC (Auto) (0-5) /HPF Urine RBC (Auto) (0-2) /HPF U Hyaline Cast (Auto) (0-2) /LPF U Epithel Cells (Auto) (FEW) /HPF Urine Bacteria (Auto) (NEGATIVE) /HPF Urine Mucus (Auto) (NEGATIVE) /HPF Urine Culture Reflexed (NO) Urine Glucose (NEGATIVE) mg/dL Urine Opiates Level (NEGATIVE) Ur Methadone (NEGATIVE) Urine Barbiturates (NEGATIVE) Ur Phencyclidine (PCP) (NEGATIVE) Urine Amphetamine (NEGATIVE) U Benzodiazepine Level (NEGATIVE) Urine Cocaine (NEGATIVE) Urine Marijuana (THC) (NEGATIVE) Ethyl Alcohol (0-10) mg/dL - Progress Progress: improved, pain not gone completely, re-examined Progress Note: 12/12/18 14:13 pt has had keflex in past without issues Counseled pt/family regarding: lab results, diagnosis, need for follow-up, rad results - Departure Time of Disposition: 14:14 Departure Disposition: Home Clinical Impression: Headache, Vomiting, UTI (urinary tract infection) Condition: Stable Critical Care Time: No Referrals: JOON RABAGO MD [Primary Care Provider] - Additional Instructions: drink plenty of fluids. follow up with primary doctor for further management. Prescriptions: Ciprofloxacin [Cipro 500 MG] 500 mg PO BID #20 tablet
[2018-12-12] MEDS ORDERED: Zofran 4 MG/2 ML VIAL IV ONE (10:40)
[2018-12-12] MEDS ORDERED: Ativan 2 MG/1 ML VIAL IV ONE (10:41)
[2018-12-12] MEDS ORDERED: Zofran 4 MG/2 ML VIAL ONE (10:42)
[2018-12-12] MEDS ORDERED: Ativan 2 MG/1 ML VIAL ONE (10:42)
[2018-12-12] MEDS ORDERED: Sodium Chloride 0.9% 1000 ML 1,000 ML ONE (10:44)
[2018-12-12 11:06] LABS: ALBUMIN 4.1 g/dL (3.5-5.0); ANION GAP 14.6 MEQ/L (5-15); BILIRUBIN,TOTAL 0.5 mg/dL (0.2-1.3); Calcium 9.5 mg/dL (8.4-10.2); Creatinine 1 1.27 mg/dL (0.52-1.04); Potassium 4.2 mmol/L (3.5-5.1); Total Protein 7.9 g/dL (6.3-8.2)
[2018-12-12 11:12] LABS: BASOPHIL % 0.5 % (0.0-0.4); Basophil (Absolute #) 0.05 (0-0.4); Eosinophil (Absolute #) 0.37 (0-0.5); Granulocyte Absolute (ANC) 4.66 (1.4-6.9); Granulocytes % 50.9 % (36.0-66.0); Hematocrit 40.3 % (35-47); Hemoglobin 12.3 gm/dl (12.0-16.0); Lymphocyte (Absolute #) 3.24 (1.0-4.6); Lymphocytes % 35.3 % (24.0-44.0); Mean Cell Volume 83.8 fl (78-100); Mean Corpuscular Hemoglobin 25.6 pg (26-32); Mean Corpuscular Hgb Concent. 30.5 g/dl (32-36); Mean Platelet Volume 11.9 fl (6-9.5); Monocyte (Absolute #) 0.85 (0.0-1.3); Monocytes % 9.3 % (0.0-12.0); Platelet Count 329 K/mm3 (150-450); Red Blood Count 4.81 M/mm3 (4.1-5.4); Red Cell Distribution Width 15.7 % (11.5-14.0); White Blood Count 9.2 K/mm3 (4.0-10.5)
--- NOTE | 2018-12-12 11:13 | XRAY ---
Indication: Headache, nausea, and vomiting. Multiple contiguous axial images obtained through the head without contrast. Comparison: November 07, 2018. Stable age-appropriate global atrophy, minimal periventricular degenerative micro-ischemia, and remote left caudate lacunar infarct. No acute intracranial hemorrhage, abnormal extra-axial fluid collection, or mass effect. Fourth ventricle is midline without hydrocephalus. [place]-white matter differentiation preserved. Bony calvarium intact. Visualized paranasal sinuses and mastoid air cells are clear. Impression: Stable nonacute senile brain with remote left caudate lacunar infarct. CT DI 67.80
[2018-12-12] MEDS ORDERED: Hydromorphone 1 mg/ml Ampule IV ONE (12:42)
[2018-12-12] MEDS ORDERED: Hydromorphone 1 mg/ml Ampule ONE (12:44)
[2018-12-12 13:59] LABS: Appearance CLOUDY (CLEAR); Bacteria MODERATE /HPF (NEGATIVE); Bilirubin NEGATIVE (NEGATIVE); Blood MODERATE Ery/ul (0-5); Epithelial Cells RARE /HPF (FEW); Glucose NEGATIVE (NEGATIVE); Ketones NEGATIVE (NEGATIVE); Leukocyte Esterase LARGE (NEGATIVE); Mucus SLIGHT /HPF (NEGATIVE); Nitrite NEGATIVE (NEGATIVE); Protein,Urine Dip 30 (Negative); RBC 26-50 /HPF (0-2); Specific Gravity 1.016 (1.005-1.025); Urobilinogen NEGATIVE mg/dL (0-1); WBC >100 /HPF (0-5)
[2018-12-12 14:07] LABS: Amphetamine,Urine NEGATIVE (NEGATIVE); Barbiturate,Urine NEGATIVE (NEGATIVE); Benzodiazepine,Urine NEGATIVE (NEGATIVE); Cocaine,Urine NEGATIVE (NEGATIVE); Methadone,Urine NEGATIVE (NEGATIVE); Opiate,Urine POSITIVE (NEGATIVE); PCP,Urine NEGATIVE (NEGATIVE); THC,Urine NEGATIVE (NEGATIVE)
[2018-12-12] MEDS ORDERED: ROCEPHIN 1 Gm-D5w 50 ml Bag** 1 G/50 ML IVPB IV STA (14:17)
[2018-12-12] MEDS ORDERED: ROCEPHIN 1 Gm-D5w 50 ml Bag** 1 G/50 ML IVPB IV ONE (14:21)
[2018-12-12 14:42] VITALS: BP 157/87; PULSE 75; O2SAT 94
== END 2018-12-12 14:54 | disposition home or self-care (01) ==
LOC: ED 10:35
DX: R51 Headache (principal); R11.2 Nausea with vomiting, unspecified; N39.0 Urinary tract infection, site not specified; Z79.899 Other long term (current) drug therapy; R42 Dizziness and giddiness; Z86.73 Personal history of transient ischemic attack (TIA), and cerebral infarction without residual deficits; I25.10 Atherosclerotic heart disease of native coronary artery without angina pectoris; F41.9 Anxiety disorder, unspecified; F32.9 Major depressive disorder, single episode, unspecified; B19.20 Unspecified viral hepatitis C without hepatic coma
CPT/HCPCS: 36415; 70450; 80053; 80307; 81001; 82962; 85025; 87086; 93005; 93041; 96360; 96365; 96374; 96375; 96376; 99284; G0480; J0696; J1170; J2060; J2405

== ENCOUNTER 2018-12-14 16:20 | Inpatient (IN) | payer MEDICARE ==
[2018-12-14] MEDS ORDERED: FEVERALL 650 MG PR STA (16:34)
[2018-12-14] MEDS ORDERED: Zofran 4 MG/2 ML VIAL IV STA (16:34)
[2018-12-14] MEDS ORDERED: Zofran 4 MG/2 ML VIAL ONE (16:41)
[2018-12-14] MEDS ORDERED: FEVERALL 650 MG ONE (16:41)
[2018-12-14] MEDS ORDERED: Sodium Chloride 0.9% 1000 ML 1,000 ML ONE (16:41)
[2018-12-14] MEDS ORDERED: Compazine 10 MG/2 ML IV ONE (16:46)
[2018-12-14] MEDS ORDERED: Compazine 10 MG/2 ML ONE (16:48)
[2018-12-14] MEDS: Sodium Chloride 0.9% 1000 ML 1,000 ML IV SCH (16:50)
--- NOTE | 2018-12-14 16:57 | ERPHSYRPT ---
- History of Present Illness Time Seen by Provider: 12/14/18 16:25 Source: patient, EMS Exam Limitations: no limitations Patient Subjective Stated Complaint: HEADACHE FOR THREE DAYS. RECENT UTI. DRY COUGH Triage Nursing Assessment: TO ROOM PER EMS COT. PATIENT COVERING EYES AND HOLDING HEAD. MOANING OCCASIONALLY. IV 22 GA RIGHT HAND. OCCASIONAL DRY COUGH NOTED. Physician History: patient recently treated for UTi- started meds- didn't take today; now with fever and chills; BRADY, cough; N&V; and sob BRADY nonspecific - worse when cough- sharp frontal;hx of BRADY - not unusual cough non-productive N&V worse with cough; loss of appetite; no abd pain no diarrhea- no travel; recent surgery for bladder suspension Timing/Duration: today (cough), yesterday (BRADY and fever and chills and N&V), day (s) (3 UTI), gradual onset, worse Fever Severity: moderate Fever Therapy CAMERA OPERATOR: none Associated Symptoms: cough, headache, nausea/vomiting, shortness of breath, No abdominal pain, No chest pain, No rash International travel in last 2 weeks: No Allergies/Adverse Reactions: ibuprofen Allergy (Verified 12/14/18 16:44) Hives NSAIDS (Non-Steroidal Anti-Inflamma Allergy (Verified 12/14/18 16:44) Hives Penicillins Allergy (Verified 12/14/18 16:44) Anaphylactic Reaction Home Medications: Meclizine HCl 25 mg [Antivert 25 mg] 25 mg PO TIDPRN PRN 03/28/16 [History ] PANTOPRAZOLE 40 mg Tablet [Protonix 40MG Tablet] 40 mg PO DAILY 03/28/16 [ History] Tizanidine HCl 4 mg [Zanaflex 4 MG] 4 mg PO TIDPRN PRN 03/28/16 [History] Atorvastatin Calcium 40 mg PO DAILY 03/29/16 [History] Oxycodone HCl Cr 20 mg [Oxycontin 20 MG ER] 20 mg PO BID 04/11/17 [History ] Lorazepam 0.5 mg [Ativan 0.5 MG] 0.5 mg PO DAILY PRN PRN 12/28/17 [History ] Oxycodone HCl/Acetaminophen [Percocet 7.5-325 mg Tablet] 1 each PO BID 03/08/18 [History] Pregabalin [Lyrica 150Mg] 150 mg PO DAILY 12/12/18 [History] Hx Tetanus, Diphtheria Vaccination/Date Given: Yes Hx Influenza Vaccination/Date Given: Yes Hx Pneumococcal Vaccination/Date Given: Yes - Review of Systems Constitutional: Fever, Chills Eyes: Photophobia, No Eye Pain, No Vision Changes Ears, Nose, & Throat: Nose Congestion, No Ear Pain, No Nose Pain, No Epistaxis, No Throat Swelling, No Hoarse Respiratory: Cough, Dyspnea, No Wheezing Cardiac: No Chest Pain, No Palpitations, No Syncope Abdominal/Gastrointestinal: Nausea, Vomiting, No Abdominal Pain, No Diarrhea Genitourinary Symptoms: No Dysuria, No Urgency, No Flank Pain Musculoskeletal: No Symptoms Skin: No Symptoms Neurological: Headache, No Focal Weakness, No Paralysis, No Seizure, No Sensory Changes Psychological: Depression, No Alcohol Abuse, No Drug Abuse, No Suicidal Ideations Endocrine: No Symptoms Hematologic/Lymphatic: No Symptoms Immunological/Allergic: No Symptoms - Past Medical History Pertinent Past Medical History: Yes Neurological History: Migraines, TIA ENT History: Cataracts Cardiac History: Coronary Artery Disease Respiratory History: No Pertinent History Endocrine Medical History: Other Musculoskeletal History: No Pertinent History GI Medical History: Gallbladder Disease History: No Pertinent History Psycho-Social History: Anxiety, Depression Female Reproductive Disorders: No Pertinent History Other Medical History: chronic pain,anemia, hepatitis c viral free for 4 yrs. - Past Surgical History Past Surgical History: Yes Neuro Surgical History: No Pertinent History Cardiac: CABG, Vascular Surgery Respiratory: No Pertinent History Gastrointestinal: Cholecystectomy Genitourinary: No Pertinent History Musculoskeletal: Joint Replacement, Orthopedic Surgery Female Surgical History: Hysterectomy Other Surgical History: Bilateral SHOULDERS, BACK,left knee, lt carotid - Social History Smoking Status: Current every day smoker How long have you smoked: 53 years Exposure to second hand smoke: Yes Alcohol Use: None Drug Use: marijuana Patient Lives Alone: No Significant Family History: no pertinent family hx - Nursing Vital Signs Nursing Vital Signs: Initial Vital Signs Temperature 101 F 12/14/18 16:21 Pulse Rate 117 H 12/14/18 16:21 Respiratory Rate 18 12/14/18 16:21 Blood Pressure 180/96 12/14/18 16:21 O2 Sat by Pulse Oximetry 85 L 12/14/18 16:21 Pain Scale Pain Intensity 10 - Physical Exam General Appearance: moderate distress, alert Eye Exam: PERRL/EOMI, eyes nml inspection, photophobia, other (fundi benign) ENT Exam: normal ENT inspection, no apparent trauma, TMs normal, pharynx normal , No pharyngeal erythema, No tonsillar exudate Neck Exam: normal inspection, non-tender, supple, full range of motion, No meningismus Respiratory Exam: chest non-tender, no respiratory distress (mild tachypnea), no accessory muscle use, decreased breath sounds, decreased air movement, crackles/rales (scattered), No normal breath sounds, No rhonchi, No wheezing, No pleural rub Cardiovascular/Chest Exam: normal heart sounds, regular rate/rhythm, normal peripheral pulses, tachycardia, No murmur, No edema Gastrointestinal/Abdominal Exam: soft, non tender, no distention, no guarding, no organomegaly, normal bowel sounds, No rebound Pelvic Exam: deferred Rectal Exam: deferred Neurologic Exam: alert, oriented x 3, cooperative, director call II-XII nml as tested, No normal mood/affect (agitated) Skin Exam: normal color, warm (increased totouch), No rash, No petechiae, No jaundice SpO2 Interpretation: O2 applied SpO2: 85 (patient keeps removing O2) O2 Delivery: Room Air - Course Nursing assessment & vital signs reviewed: Yes - Radiology Exams Chest X-ray Interpretation: Interpreted by me, Infiltrates (LLL and another small lateral aspect Right lung field) Ordered Tests: Active Orders 24 hr Category Date Time Status Admit as Inpatient ROUTINE Care 12/14/18 19:50 Active Call Admit Doctor for Orders ON ADMISSION Care 12/14/18 19:26 Active Cath for Specimen-Straight STAT Care 12/14/18 16:34 Active Code Status Order ROUTINE Care 12/14/18 19:25 Active Code Status Order ROUTINE Care 12/14/18 19:30 Active Code Status Order ROUTINE Care 12/14/18 19:50 Active Fall Protocol ROUTINE Care 12/14/18 19:27 Active IV Care Q6H Care 12/14/18 19:25 Active IV Care Q6H Care 12/14/18 19:30 Active IV Care Q6H Care 12/14/18 19:50 Active IV Insertion STAT Care 12/14/18 16:34 Active Isolation, Initiate & Maintain Q6H Care 12/14/18 19:25 Active Oxygen-ED Only Venti-Mask 35% Care 12/14/18 16:34 Active Rigo Silverman, Apply ROUTINE Care 12/14/18 19:25 Active Telemetry q6h Care 12/14/18 19:25 Active Weight,Daily 0600 Care 12/14/18 19:25 Active CHEST 1 VIEW (PORTABLE) Stat Exams 12/14/18 16:34 Taken CHEST WITH CONTRAST [CT] Stat Exams 12/14/18 18:33 Ordered ACETAMINOPHEN Routine Lab 12/14/18 16:30 Completed BLOOD CULTURE Stat Lab 12/14/18 17:14 Ordered BMP Stat Lab 12/14/18 17:14 Completed CBC W DIFF Stat Lab 12/14/18 17:14 Completed CULTURE,URINE Stat Lab 12/14/18 17:16 Received D-DIMER QUANTITATION Stat Lab 12/14/18 17:30 Completed Lactic Acid Stat Lab 12/14/18 17:06 Completed UA W/RFX UR CULTURE Stat Lab 12/14/18 17:16 Completed Oxygen Nasal Cannula 2 lpm RT 12/14/18 19:50 Active Oxygen Oxymask LPM 2% RT 12/14/18 19:25 Active Respiratory Therapy Consult ROUTINE RT 12/14/18 19:25 Active Transfer Order Routine Transfer 12/14/18 Ordered Medication Summary Generic Name Dose Route Start Last Admin Trade Name Freq PRN Reason Stop Dose Admin Acetaminophen 650 mg 12/14/18 19:25 Tylenol 325 Mg PO 01/13/19 19:24 Q4H PRN PRN PAIN AND/OR FEVER Albuterol/Ipratropium 3 ml 12/15/18 01:00 Duoneb 0.5-3 Mg/3 Ml Neb IH 01/14/19 00:59 Q6HRT RANDY Enoxaparin Sodium 90 mg 12/14/18 20:00 Enoxaparin Sodium 1 mg/kg (90 mg) 01/13/19 19:59 SQ Q12H RANDY Sodium Chloride 1,000 mls @ 100 mls/hr 12/14/18 16:45 12/14/18 16:50 Sodium Chloride 0.9% 1000 Ml IV 01/13/19 16:44 100 mls/hr .Q10H RANDY Administration Sodium Chloride 1,000 mls @ 100 mls/hr 12/14/18 19:30 Sodium Chloride 0.9% 1000 Ml IV 01/13/19 19:29 .Q10H RANDY Ondansetron HCl 4 mg 12/14/18 19:25 Zofran 4 Mg/2 Ml Vial IV 01/13/19 19:24 Q6H PRN PRN NAUSEA/VOMITING Oseltamivir Phosphate 75 mg 12/14/18 22:00 Tamiflu 75mg Capsule PO 12/19/18 21:59 BID RANDY Discontinued Medications Generic Name Dose Route Start Last Admin Trade Name Freq PRN Reason Stop Dose Admin Acetaminophen 650 mg 12/14/18 16:34 12/14/18 16:50 Feverall 650 Mg VT 12/14/18 16:35 650 mg STAT STA Administration Acetaminophen Confirm 12/14/18 16:41 Feverall 650 Mg Administered 12/14/18 16:42 Dose 650 mg .ROUTE .STK-MED ONE Hydromorphone HCl 0.5 mg 12/14/18 18:09 12/14/18 18:19 Hydromorphone 1 Mg/Ml Ampule IV 12/14/18 18:10 0.5 mg STAT ONE Administration Hydromorphone HCl Confirm 12/14/18 18:18 Hydromorphone 1 Mg/Ml Ampule Administered 12/14/18 18:19 Dose 1 mg .ROUTE .STK-MED ONE Ondansetron HCl 4 mg 12/14/18 16:34 12/14/18 16:46 Zofran 4 Mg/2 Ml Vial IV 12/14/18 16:35 Not Given STAT STA Ondansetron HCl Confirm 12/14/18 16:41 Zofran 4 Mg/2 Ml Vial Administered 12/14/18 16:42 Dose 4 mg .ROUTE .STK-MED ONE Prochlorperazine Edisylate 10 mg 12/14/18 16:46 12/14/18 16:50 Compazine 10 Mg/2 Ml IV 12/14/18 16:47 10 mg STAT ONE Administration Prochlorperazine Edisylate Confirm 12/14/18 16:48 Compazine 10 Mg/2 Ml Administered 12/14/18 16:49 Dose 10 mg .ROUTE .STK-MED ONE Lab/Rad Data: Laboratory Result Diagrams 12/14/18 17:14 12/14/18 17:14 Laboratory Results 12/14/18 12/14/18 12/14/18 Range/Units 17:30 17:16 17:14 WBC (4.0-10.5) K/mm3 RBC (4.1-5.4) M/mm3 Hgb (12.0-16.0) gm/dl Hct (35-47) % MCV (78-100) fl MCH (26-32) pg MCHC (32-36) g/dl RDW (11.5-14.0) % Plt Count (150-450) K/mm3 MPV (6-9.5) fl Gran % (36.0-66.0) % Eos # (Auto) (0-0.5) Absolute Lymphs (auto) (1.0-4.6) Absolute Monos (auto) (0.0-1.3) Lymphocytes % (24.0-44.0) % Monocytes % (0.0-12.0) % Eosinophils % (0.00-5.0) % Basophils % (0.0-0.4) % Absolute Granulocytes (1.4-6.9) Basophils # (0-0.4) D-Dimer 1364 H* (215-500) ng/mL Sodium (137-145) mmol/L Potassium (3.5-5.1) mmol/L Chloride (98-107) mmol/L Carbon Dioxide (22-30) mmol/L Anion Gap (5-15) MEQ/L BUN (7-17) mg/dL Creatinine (0.52-1.04) mg/dL Estimated GFR ML/MIN Glucose (74-106) mg/dL Lactic Acid (0.4-2.0) Calcium (8.4-10.2) mg/dL Urine Color YELLOW (YELLOW) Urine Appearance CLEAR (CLEAR) Urine pH 5.0 (5-6) Ur Specific [place] 1.015 (1.005-1.025) Urine Protein 30 (Negative) Urine Ketones NEGATIVE (NEGATIVE) Urine Blood SMALL (0-5) Camron/ul Urine Nitrite NEGATIVE (NEGATIVE) Urine Bilirubin NEGATIVE (NEGATIVE) Urine Urobilinogen NEGATIVE (0-1) mg/dL Ur Leukocyte Esterase NEGATIVE (NEGATIVE) Urine WBC (Auto) NONE (0-5) /HPF Urine RBC (Auto) NONE (0-2) /HPF U Epithel Cells (Auto) NONE (FEW) /HPF Urine Bacteria (Auto) NONE SEEN (NEGATIVE) /HPF Urine Mucus (Auto) SLIGHT (NEGATIVE) /HPF Urine Culture Reflexed YES (NO) Urine Glucose NEGATIVE (NEGATIVE) mg/dL Acetaminophen (10-30) ug/ml Influenza Type A Ag POSITIVE (NEGATIVE) Influenza Type B Ag NEGATIVE (NEGATIVE) RSV (PCR) NEGATIVE (Negative) Group A Strep Antibody NEGATIVE (NEGATIVE) 12/14/18 12/14/18 12/14/18 Range/Units 17:14 17:14 17:06 WBC 3.9 L (4.0-10.5) K/mm3 RBC 4.75 (4.1-5.4) M/mm3 Hgb 12.4 (12.0-16.0) gm/dl Hct 40.4 (35-47) % MCV 85.1 (78-100) fl MCH 26.1 (26-32) pg MCHC 30.7 L (32-36) g/dl RDW 15.8 H (11.5-14.0) % Plt Count 160 (150-450) K/mm3 MPV 12.0 H (6-9.5) fl Gran % 83.1 H (36.0-66.0) % Eos # (Auto) 0 (0-0.5) Absolute Lymphs (auto) 0.27 L (1.0-4.6) Absolute Monos (auto) 0.38 (0.0-1.3) Lymphocytes % 6.9 L (24.0-44.0) % Monocytes % 9.7 (0.0-12.0) % Eosinophils % 0.0 (0.00-5.0) % Basophils % 0.3 (0.0-0.4) % Absolute Granulocytes 3.27 (1.4-6.9) Basophils # 0.01 (0-0.4) D-Dimer (215-500) ng/mL Sodium 139 (137-145) mmol/L Potassium 5.0 (3.5-5.1) mmol/L Chloride 106 (98-107) mmol/L Carbon Dioxide 29 (22-30) mmol/L Anion Gap 9.7 (5-15) MEQ/L BUN 19 H (7-17) mg/dL Creatinine 1.09 H (0.52-1.04) mg/dL Estimated GFR 53.5 ML/MIN Glucose 120 H (74-106) mg/dL Lactic Acid 1.0 (0.4-2.0) Calcium 9.3 (8.4-10.2) mg/dL Urine Color (YELLOW) Urine Appearance (CLEAR) Urine pH (5-6) Ur Specific [place] (1.005-1.025) Urine Protein (Negative) Urine Ketones (NEGATIVE) Urine Blood (0-5) Camron/ul Urine Nitrite (NEGATIVE) Urine Bilirubin (NEGATIVE) Urine Urobilinogen (0-1) mg/dL Ur Leukocyte Esterase (NEGATIVE) Urine WBC (Auto) (0-5) /HPF Urine RBC (Auto) (0-2) /HPF U Epithel Cells (Auto) (FEW) /HPF Urine Bacteria (Auto) (NEGATIVE) /HPF Urine Mucus (Auto) (NEGATIVE) /HPF Urine Culture Reflexed (NO) Urine Glucose (NEGATIVE) mg/dL Acetaminophen (10-30) ug/ml Influenza Type A Ag (NEGATIVE) Influenza Type B Ag (NEGATIVE) RSV (PCR) (Negative) Group A Strep Antibody (NEGATIVE) 12/14/18 Range/Units 16:30 WBC (4.0-10.5) K/mm3 RBC (4.1-5.4) M/mm3 Hgb (12.0-16.0) gm/dl Hct (35-47) % MCV (78-100) fl MCH (26-32) pg MCHC (32-36) g/dl RDW (11.5-14.0) % Plt Count (150-450) K/mm3 MPV (6-9.5) fl Gran % (36.0-66.0) % Eos # (Auto) (0-0.5) Absolute Lymphs (auto) (1.0-4.6) Absolute Monos (auto) (0.0-1.3) Lymphocytes % (24.0-44.0) % Monocytes % (0.0-12.0) % Eosinophils % (0.00-5.0) % Basophils % (0.0-0.4) % Absolute Granulocytes (1.4-6.9) Basophils # (0-0.4) D-Dimer (215-500) ng/mL Sodium (137-145) mmol/L Potassium (3.5-5.1) mmol/L Chloride (98-107) mmol/L Carbon Dioxide (22-30) mmol/L Anion Gap (5-15) MEQ/L BUN (7-17) mg/dL Creatinine (0.52-1.04) mg/dL Estimated GFR ML/MIN Glucose (74-106) mg/dL Lactic Acid (0.4-2.0) Calcium (8.4-10.2) mg/dL Urine Color (YELLOW) Urine Appearance (CLEAR) Urine pH (5-6) Ur Specific [place] (1.005-1.025) Urine Protein (Negative) Urine Ketones (NEGATIVE) Urine Blood (0-5) Camron/ul Urine Nitrite (NEGATIVE) Urine Bilirubin (NEGATIVE) Urine Urobilinogen (0-1) mg/dL Ur Leukocyte Esterase (NEGATIVE) Urine WBC (Auto) (0-5) /HPF Urine RBC (Auto) (0-2) /HPF U Epithel Cells (Auto) (FEW) /HPF Urine Bacteria (Auto) (NEGATIVE) /HPF Urine Mucus (Auto) (NEGATIVE) /HPF Urine Culture Reflexed (NO) Urine Glucose (NEGATIVE) mg/dL Acetaminophen < 10 L (10-30) ug/ml Influenza Type A Ag (NEGATIVE) Influenza Type B Ag (NEGATIVE) RSV (PCR) (Negative) Group A Strep Antibody (NEGATIVE) reviewed - Progress Progress: improved, re-examined Progress Note: 12/14/18 17:05 IV started; CXR and labs drawn- patient agitated and somewhat uncooperative; family at bedside; given tylenol supp for Fever and BRADY and compazine for N&V and BRADY; will give IV fluids and recheck; CXR shows LLL infiltrate and small righ lateral mid lung field infiltrate 12/14/18 17:55 still has BRADY; n&V better; lactic ok; cbc ok lytes ok;sats improved to 93 on O2 nc 12/14/18 17:59 will get a D Dimer; recheck R temp now 100' will continue fluids and o2 and monitor 12/14/18 18:08 inf A pos; B = neg; RSV = neg;srep neg 02/23/19 18:34 D Dimer elevated; Dr Tran consulted- will get CT and will admit 12/14/18 19:[address]; Dr Tran consulted and will treat with Lovenox pending CT Discussed with .: Daphney (consulted and will admit) Counseled pt/family regarding: lab results, diagnosis, need for follow-up, rad results - Departure Time of Disposition: 19:53 Departure Disposition: In-patient Admission Clinical Impression: FUO (fever of unknown origin), Hypoxia, Influenza A, Pneumonia, D-dimer, elevated, Suspected pulmonary embolism Condition: Serious Critical Care Time: No Referrals: JOON RABAGO MD [Primary Care Provider] - RENÉ TRAN [ACTIVE STAFF] -
[2018-12-14 17:19] LABS: BASOPHIL % 0.3 % (0.0-0.4); Basophil (Absolute #) 0.01 (0-0.4); Eosinophil (Absolute #) 0 (0-0.5); Granulocyte Absolute (ANC) 3.27 (1.4-6.9); Granulocytes % 83.1 % (36.0-66.0); Hematocrit 40.4 % (35-47); Hemoglobin 12.4 gm/dl (12.0-16.0); Lymphocyte (Absolute #) 0.27 (1.0-4.6); Lymphocytes % 6.9 % (24.0-44.0); Mean Cell Volume 85.1 fl (78-100); Mean Corpuscular Hemoglobin 26.1 pg (26-32); Mean Corpuscular Hgb Concent. 30.7 g/dl (32-36); Monocyte (Absolute #) 0.38 (0.0-1.3); Monocytes % 9.7 % (0.0-12.0); Platelet Count 160 K/mm3 (150-450); Red Blood Count 4.75 M/mm3 (4.1-5.4); Red Cell Distribution Width 15.8 % (11.5-14.0); White Blood Count 3.9 K/mm3 (4.0-10.5)
[2018-12-14 17:30] LABS: ANION GAP 9.7 MEQ/L (5-15); Calcium 9.3 mg/dL (8.4-10.2); Creatinine 1 1.09 mg/dL (0.52-1.04)
[2018-12-14 18:04] LABS: Group A Strep NEGATIVE (NEGATIVE); INFLUENZA A POSITIVE (NEGATIVE); INFLUENZA B NEGATIVE (NEGATIVE); RESPIRATORY SYNCTIAL VIRUS NEGATIVE (Negative)
[2018-12-14] MEDS ORDERED: Hydromorphone 1 mg/ml Ampule IV ONE (18:09)
[2018-12-14] MEDS ORDERED: Hydromorphone 1 mg/ml Ampule ONE (18:18)
[2018-12-14 18:24] LABS: Appearance CLEAR (CLEAR); Bilirubin NEGATIVE (NEGATIVE); Blood SMALL Ery/ul (0-5); Glucose NEGATIVE (NEGATIVE); Ketones NEGATIVE (NEGATIVE); Leukocyte Esterase NEGATIVE (NEGATIVE); Mucus SLIGHT /HPF (NEGATIVE); Nitrite NEGATIVE (NEGATIVE); Protein,Urine Dip 30 (Negative); Specific Gravity 1.015 (1.005-1.025); Urobilinogen NEGATIVE mg/dL (0-1)
[2018-12-14 18:34] LABS: Bacteria NONE SEEN /HPF (NEGATIVE)
[2018-12-14] MEDS ORDERED: Zofran 4 MG/2 ML VIAL IV PRN (19:25)
[2018-12-14] MEDS ORDERED: Sodium Chloride 0.9% 1000 ML 1,000 ML IV SCH (19:30)
[2018-12-14] MEDS ORDERED: ENOXAPARIN SODIUM SQ ONE (19:53)
[2018-12-14] MEDS: ENOXAPARIN SODIUM SQ SCH (19:55)
--- NOTE | 2018-12-14 20:18 | XRAY ---
Indication: Fever and cough. Comparison: April 13, 2018. Portable chest again demonstrates lingular infiltrate/atelectasis with new focus in the right upper lobe. No consolidation or large effusion. Heart is not enlarged again with CABG surgery. Bony thorax intact again with mild osteopenia and bilateral shoulder arthroplasty. Impression: Lingular and right upper lobe infiltrates/atelectasis. Correlate clinically.
[2018-12-14] MEDS: Tamiflu 75MG Capsule PO SCH (20:34)
[2018-12-14] MEDS: TYLENOL 325 MG PO PRN (20:34)
[2018-12-14] MEDS ORDERED: DILAUDID 2 MG INJECTION IV PRN (21:51)
[2018-12-14] MEDS ORDERED: VASOTEC I.V. 2.5 MG IV PRN (21:53)
[2018-12-14] MEDS ORDERED: Zanaflex 4 MG PO PRN (22:03)
[2018-12-14] MEDS: LYRICA 150MG PO SCH (22:12)
[2018-12-14] MEDS: Zestril 20 MG PO SCH (22:12)
[2018-12-14] MEDS: Oxycontin 20 MG ER PO SCH (22:12)
[2018-12-14] MEDS: Ativan 0.5 MG PO SCH (22:12)
[2018-12-14] MEDS ORDERED: DUONEB 0.5-3 MG/3 ml Neb IH ONE (23:36)
[2018-12-15] MEDS: DUONEB 0.5-3 MG/3 ml Neb IH SCH ×4 (03:03→17:28)
[2018-12-15] MEDS: Sodium Chloride 0.9% 1000 ML 1,000 ML IV SCH ×2 (04:05→18:15)
[2018-12-15 06:15] LABS: Hematocrit 38.2 % (35-47); Hemoglobin 11.5 gm/dl (12.0-16.0); Mean Cell Volume 86.4 fl (78-100); Mean Corpuscular Hgb Concent. 30.1 g/dl (32-36); Mean Platelet Volume 12.6 fl (6-9.5); Platelet Count 143 K/mm3 (150-450); Red Blood Count 4.42 M/mm3 (4.1-5.4); Red Cell Distribution Width 15.9 % (11.5-14.0)
[2018-12-15 06:23] LABS: ANION GAP 10.6 MEQ/L (5-15); BLOOD UREA NITROGEN 16 mg/dL (7-17); CHLORIDE 107 mmol/L (98-107); Carbon Dioxide 29 mmol/L (22-30); Creatinine 1 0.97 mg/dL (0.52-1.04); Glucose 110 mg/dL (74-106); Potassium 4.8 mmol/L (3.5-5.1); SODIUM 142 mmol/L (137-145)
[2018-12-15] MEDS: TYLENOL 325 MG PO PRN (07:42)
[2018-12-15] MEDS: ENOXAPARIN SODIUM SQ SCH ×2 (07:42→21:08)
[2018-12-15] MEDS ORDERED: APRESOLINE 20 MG/ML INJ IV PRN (09:44)
[2018-12-15] MEDS ORDERED: Ativan 2 MG/1 ML VIAL IV ONE (09:44)
[2018-12-15] MEDS: Oxycontin 20 MG ER PO SCH ×2 (10:00→21:12)
[2018-12-15] MEDS: DILAUDID 2 MG INJECTION IV PRN ×3 (10:11→21:07)
[2018-12-15] MEDS: Ativan 0.5 MG PO SCH (10:12)
[2018-12-15] MEDS: Tamiflu 75MG Capsule PO SCH ×2 (10:12→21:17)
[2018-12-15] MEDS: ROCEPHIN 1 Gm-D5w 50 ml Bag** 1 G/50 ML IVPB IV SCH (10:12)
[2018-12-15] MEDS: LYRICA 150MG PO SCH ×2 (10:12→21:16)
[2018-12-15] MEDS: Zestril 20 MG PO SCH ×2 (10:12→21:17)
[2018-12-15] MEDS: Zithromax 500 MG/ 250 ML NaCl Premix 500 MG/250 ML IVPB IV SCH (10:12)
[2018-12-15] MEDS: PERCOCET TABLET 5/325MG PO SCH ×2 (11:00→21:13)
[2018-12-15] MEDS: Protonix 40MG Tablet PO SCH (12:30)
[2018-12-15] MEDS: KENALOG 0.1% CREAM 15 GM TP SCH ×2 (12:30→21:17)
[2018-12-15] MEDS: Toprol Xl 50 MG PO SCH (12:30)
--- NOTE | 2018-12-15 19:38 | XRAY ---
Indication: Short of breath. Elevated d-dimer. Flulike symptoms. Multiple contiguous axial images obtained through the chest using 80 cc Isovue-370 contrast and PE protocol. Comparison: March 08, 2018. There is satisfactory opacification of the pulmonary arteries to include the lobar and segmental branches. No filling defect or pulmonary embolus. Heart is not enlarged again with CABG surgery and prominent epicardiac fat. Aorta again minimally arteriosclerotic without aneurysm/dissection. No pathologic mediastinal/hilar lymphadenopathy. New small hiatal hernia. Examination of the lung parenchyma demonstrates new patchy airspace disease in both upper lobes and much lesser degree in both lower lobes. No consolidation or effusion. Bony thorax intact again with mild degenerative changes throughout the spine, bilateral shoulder arthroplasty, and remote T12 anterior wedging deformity. Limited upper abdomen again demonstrates 12.4 cm splenomegaly and cholecystectomy clips. Impression: 1. Again negative pulmonary embolus. 2. New bilateral patchy airspace disease as detailed. 3. New small hiatal hernia. 4. Again incidental splenomegaly, bilateral shoulder arthroplasty, and remote T12 anterior wedging deformity. Comment: Preliminary interpretation was made by [facility]. No critical discrepancy. CTDI 23.68
[2018-12-15] MEDS ORDERED: NON-FORMULARY ITEM (Oxycodone Hcl/Acetaminophen [Percocet 7.5-325 Mg Tablet] 1 EACH) PO SCH (22:00)
[2018-12-16] MEDS: Sodium Chloride 0.9% 1000 ML 1,000 ML IV SCH ×2 (04:48→17:05)
[2018-12-16] MEDS: DUONEB 0.5-3 MG/3 ml Neb IH SCH ×4 (05:34→17:32)
[2018-12-16 05:43] LABS: BASOPHIL % 0.5 % (0.0-0.4); Basophil (Absolute #) 0.01 (0-0.4); Eosinophil (Absolute #) 0 (0-0.5); Granulocyte Absolute (ANC) 1.45 (1.4-6.9); Granulocytes % 69.4 % (36.0-66.0); Hematocrit 37.1 % (35-47); Lymphocytes % 23.9 % (24.0-44.0); Mean Cell Volume 87.3 fl (78-100); Mean Corpuscular Hgb Concent. 29.6 g/dl (32-36); Mean Platelet Volume 11.9 fl (6-9.5); Monocyte (Absolute #) 0.13 (0.0-1.3); Monocytes % 6.2 % (0.0-12.0); Platelet Count 135 K/mm3 (150-450); Red Blood Count 4.25 M/mm3 (4.1-5.4); Red Cell Distribution Width 15.9 % (11.5-14.0); White Blood Count 2.1 K/mm3 (4.0-10.5)
[2018-12-16 05:50] LABS: ALBUMIN 3.4 g/dL (3.5-5.0); ALKALINE PHOSPHATASE 89 U/L (38-126); ANION GAP 10.3 MEQ/L (5-15); BLOOD UREA NITROGEN 13 mg/dL (7-17); CHLORIDE 104 mmol/L (98-107); Calcium 9.1 mg/dL (8.4-10.2); Carbon Dioxide 29 mmol/L (22-30); Creatinine 1 0.88 mg/dL (0.52-1.04); Glucose 100 mg/dL (74-106); Potassium 4.7 mmol/L (3.5-5.1); SGOT/AST 36 U/L (14-36); SGPT/ALT 17 U/L (0-35); SODIUM 139 mmol/L (137-145); Total Protein 6.9 g/dL (6.3-8.2)
[2018-12-16 06:16] LABS: Mean Corpuscular Hemoglobin 25.8 pg (26-32)
[2018-12-16 08:10] LABS: Slide Review 1 YES
[2018-12-16] MEDS ORDERED: DULCOLAX 5 MG PO PRN (08:17)
--- NOTE | 2018-12-16 08:22 | PCM.NOTE ---
Date and Time: 12/16/18819 Subjective Assessment: patient c/o back, shoulder and leg pain. consistent with myalgias secondary to flu. still has significant oxygen requirement, has been confused at times but seems to be related to IV dilaudid Objective Exam General Appearance: no apparent distress Neurologic Exam: alert, oriented x 3 Skin Exam: normal color, warm, dry Respiratory Exam: rhonchi Cardiovascular Exam: regular rate/rhythm, normal heart sounds Gastrointestinal/Abdomen Exam: soft, No tenderness, No mass Extremity Exam: normal inspection, normal range of motion OBJECTIVE DATA Vital Signs: Vital Signs - 24 hr Temp Pulse Resp BP Pulse Ox 12/16/18 08:18 93 L 12/16/18 08:00 16 12/16/18 07:03 98.1 F 87 18 185/84 92 L 12/16/18 05:37 85 20 94 L 12/16/18 04:00 97.9 F 85 19 179/80 93 L 12/16/18 00:00 22 12/15/18 23:57 97.9 F 87 22 168/77 92 L 12/15/18 20:24 98.0 F 89 23 171/75 95 12/15/18 20:00 23 12/15/18 17:32 83 20 93 L 12/15/18 15:59 98.7 F 88 18 118/70 92 L 12/15/18 15:57 16 12/15/18 15:15 93 L 12/15/18 13:02 84 22 98 12/15/18 12:04 98.8 F 84 18 144/72 94 L 12/15/18 11:49 18 12/15/18 08:34 99.8 F 114 H 18 176/84 92 L Oxygen-Last 24 hours O2 Percentage 3 Liters = 32% O2 Percentage 5 Liters = 40% O2 Percentage 5 Liters = 40% O2 Percentage 5 Liters = 40% O2 Percentage 5 Liters = 40% O2 Percentage 100% O2 Percentage 100% Oxygen Flowrate (L/min)-RT 10 Pain Assessment - Last Documented Pain Intensity 8 Pain Scale Used 0-10 Pain Scale,FLACC Intake and Output: Intake & Output 12/13/18 12/14/18 12/15/18 12/16/18 11:59 11:59 11:59 11:59 Intake Total 1103 4677 Output Total 500 Balance 603 4677 Weight 92 kg 92 kg Lab Results: Lab Results-Last 24 Hours 12/16/18 12/16/18 Range/Units 05:05 05:05 WBC 2.1 L (4.0-10.5) K/mm3 RBC 4.25 (4.1-5.4) M/mm3 Hgb 11.0 L (12.0-16.0) gm/dl Hct 37.1 (35-47) % MCV 87.3 (78-100) fl MCH 25.8 L (26-32) pg MCHC 29.6 L (32-36) g/dl RDW 15.9 H (11.5-14.0) % Plt Count 135 L (150-450) K/mm3 MPV 11.9 H (6-9.5) fl Gran % 69.4 H (36.0-66.0) % Eos # (Auto) 0 (0-0.5) Absolute Lymphs (auto) 0.50 L (1.0-4.6) Absolute Monos (auto) 0.13 (0.0-1.3) Lymphocytes % 23.9 L (24.0-44.0) % Monocytes % 6.2 (0.0-12.0) % Eosinophils % 0.0 (0.00-5.0) % Basophils % 0.5 (0.0-0.4) % Absolute Granulocytes 1.45 (1.4-6.9) Basophils # 0.01 (0-0.4) Sodium 139 (137-145) mmol/L Potassium 4.7 (3.5-5.1) mmol/L Chloride 104 (98-107) mmol/L Carbon Dioxide 29 (22-30) mmol/L Anion Gap 10.3 (5-15) MEQ/L BUN 13 (7-17) mg/dL Creatinine 0.88 (0.52-1.04) mg/dL Estimated GFR > 60.0 ML/MIN Glucose 100 (74-106) mg/dL Calcium 9.1 (8.4-10.2) mg/dL Total Bilirubin 0.30 (0.2-1.3) mg/dL AST 36 (14-36) U/L ALT 17 (0-35) U/L Alkaline Phosphatase 89 (38-126) U/L Serum Total Protein 6.9 (6.3-8.2) g/dL Albumin 3.4 L (3.5-5.0) g/dL Slides for Path Review YES Radiology Exams: Radiology Procedures Category Date Time Status CHEST 1 VIEW (PORTABLE) Stat Exams 12/14/18 16:34 Completed CHEST WITH CONTRAST [CT] Routine Exams 12/15/18 11:22 Completed Multi-Disciplinary Progress Notes: Multi-Disciplinary Progress Notes 12/15/18 17:50 Respiratory Note by Jody Phan PT PULLED OXYGEN OFF AT THIS TIME. O2 SAT DROPPED TO 83% WHILE AT REST. PT WAS PLACED BACK ON 5LPM NASAL CANNULA. O2 SAT QUICKLY INCREASED TO 92%. PT VERBALIZED UNDERSTANDING THAT HER OXYGEN NEEDS TO BE LEFT ON AT THIS TIME. Initialized on 12/15/18 17:50 - END OF NOTE Assessment/Plan (1) Influenza A Current Visit: Yes Status: Acute Assessment & Plan: on tamiflu and IV fluids currently, oxygen supplementation Code(s): J10.1 - FLU DUE TO OTH IDENT INFLUENZA VIRUS W OTH RESP MANIFEST (2) Pneumonia Current Visit: Yes Status: Acute Assessment & Plan: likely viral and secondary to influenza a, on rocephin/zithromax at this time Code(s): J18.9 - PNEUMONIA, UNSPECIFIED ORGANISM (3) Hypoxia Current Visit: Yes Status: Acute Assessment & Plan: wean oxygen as tolerated. Code(s): R09.02 - HYPOXEMIA (4) Hypertension Current Visit: No Status: Acute Assessment & Plan: add amlodipine 5mg daily to lisinopril 20mg bid and toprol xl 50mg daily Code(s): I10 - ESSENTIAL (PRIMARY) HYPERTENSION
[2018-12-16] MEDS: Toprol Xl 50 MG PO SCH (08:40)
[2018-12-16] MEDS: ROCEPHIN 1 Gm-D5w 50 ml Bag** 1 G/50 ML IVPB IV SCH (08:40)
[2018-12-16] MEDS: PERCOCET TABLET 5/325MG PO SCH ×2 (08:41→21:32)
[2018-12-16] MEDS: Protonix 40MG Tablet PO SCH (08:41)
[2018-12-16] MEDS: Oxycontin 20 MG ER PO SCH ×2 (08:41→21:32)
[2018-12-16] MEDS: Tamiflu 75MG Capsule PO SCH ×2 (08:42→21:32)
[2018-12-16] MEDS: Zestril 20 MG PO SCH ×2 (08:42→21:32)
[2018-12-16] MEDS: LYRICA 150MG PO SCH ×2 (08:42→21:32)
--- NOTE | 2018-12-16 08:57 | HP ---
CHIEF COMPLAINT: Headache. HISTORY OF PRESENT ILLNESS: The patient is a 63 year-old white female who has been to the emergency room on 12/12/2018 complaining of headache at that time. She had greater than 100 white blood cells per high power field in her urine. They did not test her for influenza at that time. Her urine culture came back as probable skin contaminant. She had been placed on Cipro at that time. The patient presented to the emergency room again when she was seen initially as her oxygen was low at 85% on room air and she has hovered between 85 to 93%. She is currently on supplemental oxygen. PAST MEDICAL/SURGICAL HISTORY: Negative for deep venous thrombosis or pulmonary embolism but she has history of chronic pain for which she takes oxycodone and neuropathy for which she takes Lyrica. She reports she has had previous history of Hep-C which has been free of virus for the past four years. She had a previous cholecystectomy, hysterectomy. She has had back surgery, knee surgery and left carotid endarterectomy. HOME MEDICATIONS: Meclizine 25 mg t.i.d. PRN, pantoprazole 40 mg a day, Zanaflex 4 mg a day PRN, atorvastatin 40 mg a day, oxycodone 20 mg extended release b.i.d., lorazepam 0.5 mg t.i.d. PRN, Percocet 7.5/325 mg b.i.d., Lyrica 150 mg a day. ALLERGY: IBUPROFEN, NSAID, PENICILLIN. PHYSICAL EXAMINATION: The patient's vital signs on admission showed a temperature 101.0F, pulse 115, respiratory rate 18, blood pressure 180/96. Again, O2 was 85% on room air. HEENT: Normocephalic, atraumatic. Pupils equal round reactive to light. Extraocular movements intact. Oropharynx is pink and moist. NECK: Supple without lymphadenopathy, thyromegaly or JVD. CHEST: Clear to auscultation with good air movement bilaterally. HEART: Regular rate and rhythm without murmurs, rubs or gallops. ABDOMEN: Soft. No palpable masses. EXTREMITIES: Without cyanosis, clubbing or edema. NEUROLOGIC: The patient is currently alert and oriented x3 with no focal deficits noted. She does seem to be in moderate pain presently due to her headache. LAB DATA AND TESTS: Positive for influenza A and negative for respiratory syncytial virus and Strep. Her D-dimer was elevated at 1,364 and the patient thus far has been refusing to have CT with pulmonary embolism protocol and also is refusing Lovenox but after discussion with her and promising her that we would give her some Ativan beforehand she has now agreed to do the CT scan. The chest x-ray did show right upper lobe infiltrate. Her lactic acid was 1.0. Glucose nonfasting 120, BUN 19, creatinine 1.09. Electrolytes were normal. White blood cell count 3,900, hemoglobin 12.4, PLT count 160,000. There did appear to be a little bit of a left shift with 83.1% granulocytes. ASSESSMENT: A patient with hypoxia and infiltrate on chest x-ray concerning for pneumonia with influenza A-positive. She has been placed on Tamiflu although it is past the 48 hour window. She is also placed empirically on Rocephin and Zithromax for possible secondary bacterial infection. The patient is complaining of headaches which may be related to the influenza or due to the medication with the Cipro. The Cipro has been discontinued. The patient has received Dilaudid. Her blood pressure has been high. It did come down with a dose of Dilaudid but not with Vasotec. We continued her usual home medications and gave her PRN hydralazine for systolic above 180. The patient will continue on her usual home medications otherwise.
[2018-12-16] MEDS: NORVASC 5 MG PO SCH (09:05)
[2018-12-16] MEDS: Colace 100 MG PO SCH ×2 (09:05→21:32)
[2018-12-16] MEDS: ENOXAPARIN SODIUM SQ SCH ×2 (09:09→09:54)
[2018-12-16] MEDS: KENALOG 0.1% CREAM 15 GM TP SCH ×2 (09:14→21:33)
[2018-12-16] MEDS: Zithromax 500 MG/ 250 ML NaCl Premix 500 MG/250 ML IVPB IV SCH (09:50)
[2018-12-16] MEDS ORDERED: NORVASC 5 MG PO SCH (10:00)
[2018-12-17] MEDS: DUONEB 0.5-3 MG/3 ml Neb IH SCH ×4 (01:10→19:43)
[2018-12-17] MEDS: Sodium Chloride 0.9% 1000 ML 1,000 ML IV SCH ×2 (04:05→09:21)
[2018-12-17 05:50] LABS: Hematocrit 36.3 % (35-47); Hemoglobin 10.7 gm/dl (12.0-16.0); Mean Cell Volume 87.3 fl (78-100); Mean Corpuscular Hemoglobin 25.7 pg (26-32); Mean Corpuscular Hgb Concent. 29.5 g/dl (32-36); Mean Platelet Volume 11.8 fl (6-9.5); Platelet Count 120 K/mm3 (150-450); Red Blood Count 4.16 M/mm3 (4.1-5.4); Red Cell Distribution Width 15.8 % (11.5-14.0)
[2018-12-17 06:07] LABS: White Blood Count 1.9 K/mm3 (4.0-10.5)
[2018-12-17 06:10] LABS: ANION GAP 9.2 MEQ/L (5-15); BLOOD UREA NITROGEN 16 mg/dL (7-17); CHLORIDE 102 mmol/L (98-107); Calcium 8.6 mg/dL (8.4-10.2); Carbon Dioxide 31 mmol/L (22-30); Creatinine 1 0.95 mg/dL (0.52-1.04); Glucose 87 mg/dL (74-106); Potassium 4.3 mmol/L (3.5-5.1); SODIUM 137 mmol/L (137-145)
[2018-12-17 07:18] LABS: BAND 4 % (0.0-2.0); Eosinophil 2 % (0.00-3.0); Lymphocytes 29 % (24-44); Monocyte 9 % (0.0-12.0); Neutrophils 56 % (36.0-66.0); Total Cells Counted 100
[2018-12-17 07:19] LABS: ANISOCYTOSIS 1+; Hypochromia 1+; Platelet Estimate NORMAL (NORMAL); Poikilocytosis RARE
[2018-12-17 07:20] LABS: Toxic Granulation 1+
--- NOTE | 2018-12-17 08:25 | PCM.NOTE ---
Date and Time: 12/17/18819 Subjective Assessment: Pt wanted to leave AMA yesterday but didn't, was apparently smoking in her room at one point. She took a walk and her oxygen saturation was down to 65%. This morning she is worried about her pain management appointment with Dr. Choi, scheduled for today. Her WBC are decreased and she is being put in reverse isolation in addition to isolation. She currently has her O2 off due to she was eating. Tolerating po. - Review of Systems Constitutional: No Fever Respiratory: Cough, Short Of Breath Objective Exam General Appearance: no apparent distress, alert, obese Neurologic Exam: oriented x 3, cooperative Skin Exam: normal color, warm, dry, No rash Ears, Nose, Throat Exam: moist mucous membranes Respiratory Exam: diminished breath sounds, wheezing (faint scattered), No crackles/rales, No rhonchi Cardiovascular Exam: regular rate/rhythm, normal heart sounds, No murmur Gastrointestinal/Abdomen Exam: soft, normal bowel sounds, No tenderness, No distention, No mass, No guarding, No rebound Extremity Exam: normal inspection, No pedal edema, No swelling Back Exam: normal inspection, No rash OBJECTIVE DATA Vital Signs: Vital Signs - 24 hr Temp Pulse Resp BP Pulse Ox 12/17/18 04:00 19 12/17/18 02:54 98.1 F 80 19 146/65 97 12/17/18 01:10 74 19 96 12/17/18 00:00 98.5 F 71 18 107/57 92 L 12/16/18 20:00 98.6 F 82 18 173/76 96 12/16/18 17:45 80 20 93 L 12/16/18 16:00 18 12/16/18 15:45 98.3 F 80 18 101/64 91 L 12/16/18 13:21 73 18 95 12/16/18 12:00 12 12/16/18 11:56 98.5 F 78 18 115/57 92 L Oxygen-Last 24 hours O2 Percentage 2 Liters = 28% O2 Percentage 3 Liters = 32% O2 Percentage 3 Liters = 32% O2 Percentage 2 Liters = 28% O2 Percentage 3 Liters = 32% Pain Assessment - Last Documented Pain Intensity 8 Pain Scale Used 0-10 Pain Scale,FLACC Intake and Output: Intake & Output 12/14/18 12/15/18 12/16/18 02/26/19 11:59 11:59 11:59 11:59 Intake Total 1103 4956 3605 Output Total 500 1100 Balance 603 4959 2503 Weight 92 kg 92 kg 93.7 kg Lab Results: Lab Results-Last 24 Hours 12/17/18 12/17/18 Range/Units 05:13 05:13 WBC 1.9 L* (4.0-10.5) K/mm3 RBC 4.16 (4.1-5.4) M/mm3 Hgb 10.7 L (12.0-16.0) gm/dl Hct 36.3 (35-47) % MCV 87.3 (78-100) fl MCH 25.7 L (26-32) pg MCHC 29.5 L (32-36) g/dl RDW 15.8 H (11.5-14.0) % Plt Count 120 L (150-450) K/mm3 MPV 11.8 H (6-9.5) fl Segmented Neutrophils 56 (36.0-66.0) % Band Neutrophils 4 H (0.0-2.0) % Lymphocytes (Manual) 29 (24-44) % Monocytes (Manual) 9 (0.0-12.0) % Eosinophils (Manual) 2 (0.00-3.0) % Hypochromia 1+ Toxic Granulation 1+ Platelet Estimate NORMAL (NORMAL) RBC Morphology ABNORMAL Poikilocytosis RARE Anisocytosis 1+ Sodium 137 (137-145) mmol/L Potassium 4.3 (3.5-5.1) mmol/L Chloride 102 (98-107) mmol/L Carbon Dioxide 31 H (22-30) mmol/L Anion Gap 9.2 (5-15) MEQ/L BUN 16 (7-17) mg/dL Creatinine 0.95 (0.52-1.04) mg/dL Estimated GFR > 60.0 ML/MIN Glucose 87 (74-106) mg/dL Calcium 8.6 (8.4-10.2) mg/dL Radiology Exams: Radiology Procedures Category Date Time Status CHEST WITH CONTRAST [CT] Routine Exams 12/15/18 11:22 Completed Assessment/Plan (1) Leukopenia Current Visit: Yes Status: Acute Qualifiers: Leukopenia type: neutropenia Assessment & Plan: likely due to influenza A. Anyone entering the room needs a gown and mask; staff are to stay vigilant for this. Pt cannot leave today for her appointment. We will speak with Dr. Choi's office about her pain meds. Code(s): D72.819 - DECREASED WHITE BLOOD CELL COUNT, UNSPECIFIED (2) Influenza A Current Visit: Yes Status: Acute Assessment & Plan: on tamiflu. Code(s): J10.1 - FLU DUE TO OTH IDENT INFLUENZA VIRUS W OTH RESP MANIFEST (3) Hypoxia Current Visit: Yes Status: Acute Code(s): R09.02 - HYPOXEMIA (4) Pneumonia Current Visit: Yes Status: Acute Qualifiers: Pneumonia type: due to unspecified organism Laterality: bilateral Lung location: unspecified part of lung Qualified Code(s): J18.9 - Pneumonia, unspecified organism Assessment & Plan: on rocephin and zithromax. Code(s): J18.9 - PNEUMONIA, UNSPECIFIED ORGANISM (5) Diabetes mellitus Current Visit: No Status: Acute Qualifiers: Diabetes mellitus type: type 2 Diabetes mellitus alf insulin use: without alf use Diabetes mellitus complication status: with neurologic complications Diabetes mellitus complication detail: with polyneuropathy Qualified Code(s): E11.42 - Type 2 diabetes mellitus with diabetic polyneuropathy Code(s): E11.9 - TYPE 2 DIABETES MELLITUS WITHOUT COMPLICATIONS (6) Hypertension Current Visit: No Status: Acute Qualifiers: Hypertension type: essential hypertension Qualified Code(s): I10 - Essential (primary) hypertension Assessment & Plan: Dr. Diop added norvasc to her regimen yesterday. systolic 101 to 176 - will observe today. Code(s): I10 - ESSENTIAL (PRIMARY) HYPERTENSION
[2018-12-17] MEDS: PERCOCET TABLET 5/325MG PO SCH ×2 (09:15→21:17)
[2018-12-17] MEDS: Protonix 40MG Tablet PO SCH (09:19)
[2018-12-17] MEDS: Zestril 20 MG PO SCH ×2 (09:19→21:17)
[2018-12-17] MEDS: Zithromax 500 MG/ 250 ML NaCl Premix 500 MG/250 ML IVPB IV SCH (09:20)
[2018-12-17] MEDS: Tamiflu 75MG Capsule PO SCH ×2 (09:20→21:17)
[2018-12-17] MEDS: Oxycontin 20 MG ER PO SCH ×2 (09:20→21:20)
[2018-12-17] MEDS: ENOXAPARIN SODIUM SQ SCH (09:20)
[2018-12-17] MEDS: NORVASC 5 MG PO SCH (09:20)
[2018-12-17] MEDS: Colace 100 MG PO SCH ×2 (09:20→21:17)
[2018-12-17] MEDS: LYRICA 150MG PO SCH ×2 (09:20→21:20)
[2018-12-17] MEDS: ROCEPHIN 1 Gm-D5w 50 ml Bag** 1 G/50 ML IVPB IV SCH (09:20)
[2018-12-17] MEDS: Toprol Xl 50 MG PO SCH (09:20)
[2018-12-17] MEDS: KENALOG 0.1% CREAM 15 GM TP SCH ×2 (09:21→21:23)
[2018-12-18] MEDS: DUONEB 0.5-3 MG/3 ml Neb IH SCH ×4 (00:49→16:55)
[2018-12-18] MEDS: Sodium Chloride 0.9% 1000 ML 1,000 ML IV SCH (02:13)
--- NOTE | 2018-12-18 08:52 | PCM.NOTE ---
Date and Time: 12/18/18 0850 Subjective Assessment: patient is in bed with oxygen tubing lying on the floor, states she doesn't think she needs it and feels no different on it. still has cough and significant dyspnea. she is tolerating po intake. has been an issue to get her to comply to not go outside to smoke etc. Objective Exam General Appearance: no apparent distress, alert, obese Neurologic Exam: alert, oriented x 3 Skin Exam: normal color, warm, dry Respiratory Exam: diminished breath sounds, prolonged expirations Cardiovascular Exam: regular rate/rhythm, normal heart sounds Gastrointestinal/Abdomen Exam: soft, No tenderness, No mass Extremity Exam: normal inspection, normal range of motion OBJECTIVE DATA Vital Signs: Vital Signs - 24 hr Temp Pulse Resp BP Pulse Ox 12/18/18 05:53 72 18 96 12/18/18 04:00 98.0 F 79 19 162/75 97 12/18/18 00:49 82 18 92 L 12/18/18 00:00 98.4 F 88 20 151/76 94 L 12/17/18 20:00 99.7 F 88 20 173/79 96 12/17/18 19:43 85 16 87 L 12/17/18 16:00 98.2 F 87 18 166/85 89 L 12/17/18 12:00 18 12/17/18 11:52 98.5 F 77 18 131/71 91 L Oxygen-Last 24 hours O2 Percentage 4 Liters = 36% O2 Percentage 4 Liters = 36% O2 Percentage 3 Liters = 32% O2 Percentage 2 Liters = 28% Oxygen Flowrate (L/min)-RT 10 Pain Assessment - Last Documented Pain Intensity 7 Pain Scale Used 0-10 Pain Scale Intake and Output: Intake & Output 12/15/18 12/16/18 12/17/18 12/18/18 11:59 11:59 11:59 11:59 Intake Total 1103 4957 4083 3643 Output Total 500 1700 Balance 603 4957 2383 3643 Weight 92 kg 92 kg 93.7 kg Multi-Disciplinary Progress Notes: Multi-Disciplinary Progress Notes 12/17/18 11:15 (created 12/17/18 15:39) Case Management Note by Lakshmi Mejia CONTINUES TO PLAN TO RETURN HOME TO PRE EPISODIC LEVEL OF FNX. DENIES NEEDS AT THIS TIME. STARTED DISCUSSION OF HOME OXYGEN, IN EVENT THAT PT WILL REQUIRE ON DISCHARGE. WILL FOLLOW FOR ALL DC NEEDS. Initialized on 12/17/18 15:39 - END OF NOTE Assessment/Plan (1) Influenza A Current Visit: Yes Status: Acute Assessment & Plan: continue tamiflu, afebrile at this time Code(s): J10.1 - FLU DUE TO OTH IDENT INFLUENZA VIRUS W OTH RESP MANIFEST (2) Pneumonia Current Visit: Yes Status: Acute Qualifiers: Pneumonia type: due to unspecified organism Laterality: bilateral Lung location: unspecified part of lung Qualified Code(s): J18.9 - Pneumonia, unspecified organism Assessment & Plan: on rocephin and zithromax, likely an element of copd as well. will add prednisone 40mg daily at this time Code(s): J18.9 - PNEUMONIA, UNSPECIFIED ORGANISM (3) Hypoxia Current Visit: Yes Status: Acute Assessment & Plan: continue supplemental oxygen Code(s): R09.02 - HYPOXEMIA (4) Hypertension Current Visit: No Status: Acute Qualifiers: Hypertension type: essential hypertension Qualified Code(s): I10 - Essential (primary) hypertension Code(s): I10 - ESSENTIAL (PRIMARY) HYPERTENSION
[2018-12-18] MEDS: Toprol Xl 50 MG PO SCH (10:43)
[2018-12-18] MEDS: ROCEPHIN 1 Gm-D5w 50 ml Bag** 1 G/50 ML IVPB IV SCH (10:43)
[2018-12-18] MEDS: NORVASC 5 MG PO SCH (10:43)
[2018-12-18] MEDS: Oxycontin 20 MG ER PO SCH ×2 (10:43→21:39)
[2018-12-18] MEDS: Colace 100 MG PO SCH ×2 (10:43→21:40)
[2018-12-18] MEDS: DELTASONE 20 MG PO SCH (10:43)
[2018-12-18] MEDS: Protonix 40MG Tablet PO SCH (10:44)
[2018-12-18] MEDS: Zestril 20 MG PO SCH ×2 (10:44→21:39)
[2018-12-18] MEDS: ENOXAPARIN SODIUM SQ SCH (10:44)
[2018-12-18] MEDS: KENALOG 0.1% CREAM 15 GM TP SCH ×2 (10:44→21:49)
[2018-12-18] MEDS: Tamiflu 75MG Capsule PO SCH ×2 (10:44→21:40)
[2018-12-18] MEDS: LYRICA 150MG PO SCH ×2 (10:44→21:39)
[2018-12-18] MEDS: PERCOCET TABLET 5/325MG PO SCH ×2 (10:45→21:39)
[2018-12-18 10:51] LABS: Basophil (Absolute #) 0 (0-0.4); Eosinophil % 2.5 % (0.00-5.0); Eosinophil (Absolute #) 0.04 (0-0.5); Granulocyte Absolute (ANC) 0.74 (1.4-6.9); Granulocytes % 47.2 % (36.0-66.0); Hematocrit 33.8 % (35-47); Lymphocyte (Absolute #) 0.58 (1.0-4.6); Lymphocytes % 36.9 % (24.0-44.0); Mean Cell Volume 87.1 fl (78-100); Mean Corpuscular Hgb Concent. 29.6 g/dl (32-36); Mean Platelet Volume 11.7 fl (6-9.5); Monocyte (Absolute #) 0.21 (0.0-1.3); Monocytes % 13.4 % (0.0-12.0); Platelet Count 105 K/mm3 (150-450); Red Blood Count 3.88 M/mm3 (4.1-5.4); Red Cell Distribution Width 15.9 % (11.5-14.0)
[2018-12-18 11:08] LABS: Mean Corpuscular Hemoglobin 25.7 pg (26-32); White Blood Count 1.6 K/mm3 (4.0-10.5)
[2018-12-18 11:15] LABS: Slide Review 1 YES
[2018-12-18 11:28] LABS: ANION GAP 8.3 MEQ/L (5-15); BLOOD UREA NITROGEN 10 mg/dL (7-17); CHLORIDE 107 mmol/L (98-107); Calcium 8.6 mg/dL (8.4-10.2); Carbon Dioxide 27 mmol/L (22-30); Creatinine 1 0.74 mg/dL (0.52-1.04); Glucose 104 mg/dL (74-106); Potassium 4.1 mmol/L (3.5-5.1); SODIUM 139 mmol/L (137-145)
[2018-12-18] MEDS: Zithromax 500 MG/ 250 ML NaCl Premix 500 MG/250 ML IVPB IV SCH (11:46)
[2018-12-18] MEDS: Ativan 0.5 MG PO PRN ×2 (12:07→17:11)
[2018-12-19] MEDS: DUONEB 0.5-3 MG/3 ml Neb IH SCH ×2 (00:03→07:34)
[2018-12-19] MEDS ORDERED: Catapres 0.1 MG PO ONE (06:15)
[2018-12-19 07:42] VITALS: PULSE 84; O2SAT 96
[2018-12-19] MEDS: Oxycontin 20 MG ER PO SCH (08:10)
[2018-12-19 08:26] VITALS: BP 176/78
--- NOTE | 2018-12-19 08:35 | PCM.DS ---
Discharge Summary Date of Admission: 12/14/18 19:55 Admitting Physician: JOON RABAGO Primary Care Provider: JOON RABAGO Allergies Allergies ibuprofen Allergy (Verified 12/14/18 16:44) Hives NSAIDS (Non-Steroidal Anti-Inflamma Allergy (Verified 12/14/18 16:44) Hives Penicillins Allergy (Verified 12/14/18 16:44) Anaphylactic Reaction Hospital Summary - Hospital Course Hospital Course: patient was admitted with cough, fever and shortness of breath. she was found to have pneumonia and influenza a. she is doing quite well now but still requiring oxygen. - Vitals & Intake/Output Vital Signs: Vital Signs Temperature 97.7 F 12/19/18 08:00 Pulse Rate 84 12/19/18 08:00 Respiratory Rate 19 12/19/18 08:00 Blood Pressure 176/78 12/19/18 08:00 O2 Sat by Pulse Oximetry 96 12/19/18 08:00 Oxygen-Last Documented O2 Percentage 5 Liters = 40% Intake & Output: Intake & Output 12/16/18 12/17/18 12/18/18 12/19/18 11:59 11:59 11:59 11:59 Intake Total 4957 4083 4123 1430 Output Total 1700 300 Balance 4957 2383 4123 1130 Weight 92 kg 93.7 kg 93.7 kg 96.2 kg - Lab Result Diagrams: 12/18/18 09:37 12/18/18 09:37 Lab Results-Last 24 Hrs: Lab Results-Last 24 Hours 12/18/18 12/18/18 Range/Units 09:37 09:37 WBC 1.6 L* (4.0-10.5) K/mm3 RBC 3.88 L (4.1-5.4) M/mm3 Hgb 10.0 L (12.0-16.0) gm/dl Hct 33.8 L (35-47) % MCV 87.1 (78-100) fl MCH 25.7 L (26-32) pg MCHC 29.6 L (32-36) g/dl RDW 15.9 H (11.5-14.0) % Plt Count 105 L (150-450) K/mm3 MPV 11.7 H (6-9.5) fl Gran % 47.2 (36.0-66.0) % Eos # (Auto) 0.04 (0-0.5) Absolute Lymphs (auto) 0.58 L (1.0-4.6) Absolute Monos (auto) 0.21 (0.0-1.3) Lymphocytes % 36.9 (24.0-44.0) % Monocytes % 13.4 H (0.0-12.0) % Eosinophils % 2.5 (0.00-5.0) % Basophils % 0.0 (0.0-0.4) % Absolute Granulocytes 0.74 L (1.4-6.9) Basophils # 0 (0-0.4) Sodium 139 (137-145) mmol/L Potassium 4.1 (3.5-5.1) mmol/L Chloride 107 (98-107) mmol/L Carbon Dioxide 27 (22-30) mmol/L Anion Gap 8.3 (5-15) MEQ/L BUN 10 (7-17) mg/dL Creatinine 0.74 (0.52-1.04) mg/dL Estimated GFR > 60.0 ML/MIN Glucose 104 (74-106) mg/dL Calcium 8.6 (8.4-10.2) mg/dL Slides for Path Review YES Micro Results-Entire Visit: Microbiology 12/14/18 17:00 Blood Culture - Preliminary Blood NO GROWTH TO DATE 12/14/18 17:16 Urine Culture - Final Urine, Catheterized NO GROWTH - Procedures and Test Procedures and Tests throughout Hospitalization: Therapy Orders & Screens 12/14/18 19:25 Oxygen Oxymask LPM 10% Comment: Respiratory Therapy Consult ROUTINE Comment: Reason For Exam: 12/14/18 21:24 Smoking Cessation Education ONCE Comment: Diagnosis: Influenza A, Hypoxia, elevated Ddimer Smoking Status: Current every day smoker How long have you smoked: 53 years Have you smoked in the past 12 months: Yes Approximately how many cigarettes per day: 1/2 pack daily Do you dip or chew tobacco: No 12/14/18 21:25 Respiratory Therapy Assessment DAILY Comment: Diagnosis: Influenza A, Hypoxia, elevated Ddimer 12/14/18 21:28 Peak Expiratory Flow Rate ONCE Comment: Reason For Exam: Diagnosis: Influenza A, Hypoxia, elevated Ddimer Discharge Exam General Appearance: no apparent distress, alert Skin Exam: normal color, warm, dry Respiratory Exam: diminished breath sounds, prolonged expirations Cardiovascular Exam: regular rate/rhythm, normal heart sounds Gastrointestinal/Abdomen Exam: soft, No tenderness, No mass Extremity Exam: normal inspection, normal range of motion Final Diagnosis/Problem List - Final Discharge Diagnosis/Problem (1) Pneumonia Current Visit: Yes Status: Acute Assessment & Plan: patient has refused IV replacement after infiltration, insisted to go out and smoke and continues to remove her oxygen during the hospital stay. she has been noncompliant with multiple therapies during her stay and very difficult to care for, will send home on po levaquin (2) Influenza A Current Visit: Yes Status: Acute Assessment & Plan: afebrile for several days now, no further tx required. (3) Hypoxia Current Visit: Yes Status: Acute Assessment & Plan: likely underlying component of copd, will need qualified for oxygen and will need pulm consult as an outpatient (4) Hypertension Current Visit: No Status: Acute Assessment & Plan: has been under better control at home, will send on amlodipine as well. - Discharge Disposition: Home, Self-Care Condition: Serious Prescriptions: New Prednisone 20 mg [Deltasone 20 mg] 20 mg PO UD #9 tablet Albuterol/Ipratropium 3ml Neb* [DUONEB 0.5-3 MG/3 ml Neb] 3 ml IH Q6HRT ampul.neb Amlodipine Besylate 5 mg [Norvasc 5 mg] 5 mg PO QAM #30 tablet Levofloxacin [Levaquin] 500 mg PO DAILY #5 tablet Continue Meclizine HCl 25 mg [Antivert 25 mg] 25 mg PO TIDPRN PRN PRN Reason: Dizziness PANTOPRAZOLE 40 mg Tablet [Protonix 40MG Tablet] 40 mg PO DAILY Tizanidine HCl 4 mg [Zanaflex 4 MG] 4 mg PO TIDPRN PRN PRN Reason: Pain Atorvastatin Calcium 40 mg PO DAILY Lisinopril 20 mg [Zestril 20 MG] 20 mg PO BID #60 tablet Oxycodone HCl Cr 20 mg [Oxycontin 20 MG ER] 20 mg PO BID Triamcinolone 0.1% Cream [Kenalog 0.1% Cream 15 gm] 1 gm TP BID #30 g Metoprolol Succinate 50 mg [Toprol Xl 50 MG] 50 mg PO DAILY #0 tablet.sa Lorazepam 0.5 mg [Ativan 0.5 MG] 0.5 mg PO DAILY PRN PRN PRN Reason: Anxiety Oxycodone HCl/Acetaminophen [Percocet 7.5-325 mg Tablet] 1 each PO BID Pregabalin [Lyrica 150Mg] 150 mg PO BID Discontinued Ciprofloxacin [Cipro 500 MG] 500 mg PO BID #20 tablet Follow up with: JOON RABAGO MD [Primary Care Provider] - 1 Week JOHANN REVELES [ACTIVE STAFF] - 1 Week
[2018-12-19] MEDS: Zestril 20 MG PO SCH (09:19)
[2018-12-19] MEDS: ENOXAPARIN SODIUM SQ SCH (09:19)
[2018-12-19] MEDS: Colace 100 MG PO SCH (09:19)
[2018-12-19] MEDS: Tamiflu 75MG Capsule PO SCH (09:19)
[2018-12-19] MEDS: KENALOG 0.1% CREAM 15 GM TP SCH (09:20)
[2018-12-19] MEDS: Toprol Xl 50 MG PO SCH (09:20)
[2018-12-19] MEDS: LYRICA 150MG PO SCH (09:20)
[2018-12-19] MEDS: NORVASC 5 MG PO SCH (09:20)
[2018-12-19] MEDS: Protonix 40MG Tablet PO SCH (09:20)
[2018-12-19] MEDS: DELTASONE 20 MG PO SCH (09:20)
[2018-12-19] MEDS ORDERED: Levofloxacin 250MG Tablet PO SCH (10:00)
[2018-12-19] MEDS: PERCOCET TABLET 5/325MG PO SCH (10:59)
[2018-12-19] MEDS ORDERED: Oxycontin 20 MG ER PO SCH (20:00)
== END 2018-12-19 13:00 | disposition home or self-care (01) | DRG 195 ==
LOC: ED 16:20 → MED SURG 19:55
PROVIDERS: ADMIT Family Medicine; ATTEND Family Medicine
DX: R50.9 Fever, unspecified (principal); J18.9 Pneumonia, unspecified organism; J09.X2 Influenza due to identified novel influenza A virus with other respiratory manifestations; R09.02 Hypoxemia; I10 Essential (primary) hypertension; R79.1 Abnormal coagulation profile; R11.2 Nausea with vomiting, unspecified; R05 Cough; R06.02 Shortness of breath; D72.819 Decreased white blood cell count, unspecified; Z86.73 Personal history of transient ischemic attack (TIA), and cerebral infarction without residual deficits; E11.9 Type 2 diabetes mellitus without complications; R51 Headache; M54.9 Dorsalgia, unspecified; M25.519 Pain in unspecified shoulder; M79.606 Pain in leg, unspecified; F17.200 Nicotine dependence, unspecified, uncomplicated; Z79.899 Other long term (current) drug therapy
CPT/HCPCS: 36415; 71045; 71260; 80048; 80053; 81001; 83605; 85025; 85027; 85379; 87040; 87086; 87631; 87651; 94150; 94640; 94762; 96360; 96361; 96372; 96374; 96375; 99285; G0481; P9612; J0456; J0696; J1170; J1650; J2060; J2405; A9270-GY

== ENCOUNTER 2019-04-20 15:42 | Emergency (ER) | payer MEDICARE ==
[2019-04-20] MEDS ORDERED: Zofran 4 MG/2 ML VIAL IV ONE (16:23)
[2019-04-20] MEDS ORDERED: MORPHINE SULFATE 4 MG INJ IV ONE (16:23)
[2019-04-20] MEDS ORDERED: Sodium Chloride 0.9% 1000 ML 1,000 ML IV SCH (16:30)
[2019-04-20] MEDS ORDERED: Zofran 4 MG/2 ML VIAL ONE (16:38)
[2019-04-20] MEDS ORDERED: MORPHINE SULFATE 4 MG INJ ONE (16:39)
[2019-04-20] MEDS ORDERED: Sodium Chloride 0.9% 1000 ML 1,000 ML ONE (16:39)
[2019-04-20] MEDS ORDERED: Neurontin 400 MG PO ONE (17:09)
[2019-04-20 17:25] LABS: Appearance CLOUDY (CLEAR); Bacteria MODERATE /HPF (NEGATIVE); Bilirubin NEGATIVE (NEGATIVE); Blood NEGATIVE Ery/ul (0-5); Crystals Unidentified 25-50 /HPF (NEGATIVE); Epithelial Cells MODERATE /HPF (FEW); Glucose NEGATIVE (NEGATIVE); Ketones NEGATIVE (NEGATIVE); Leukocyte Esterase MODERATE (NEGATIVE); Mucus SLIGHT /HPF (NEGATIVE); Nitrite POSITIVE (NEGATIVE); Protein,Urine Dip 30 (Negative); Specific Gravity 1.025 (1.005-1.025); Urobilinogen NEGATIVE mg/dL (0-1); WBC 51-100 /HPF (0-5)
[2019-04-20] MEDS ORDERED: Levofloxacin 500MG/100ML D5W 500 MG/100 ML BAG IV STA (17:30)
[2019-04-20] MEDS ORDERED: Levofloxacin 500MG/100ML D5W 500 MG/100 ML BAG IV ONE (17:34)
--- NOTE | 2019-04-20 17:36 | ERPHSYRPT ---
- History of Present Illness Time Seen by Provider: 04/20/19 16:10 Source: patient Exam Limitations: clinical condition Patient Subjective Stated Complaint: STATES WAS STANDING AT THE KITCHEN SINK AND FELT A SHARP PAIN IN BACK. ON SUNDAY HAD AN INJECTION IN HER BACK PER PAIN DOCTOR IN [place] [facility]. ALSO HAVING DIZZINESS AND HEADACHE TODAY ALONG WITH URINARY TRACT SYMPTOMS. STATES TOOK REGULAR PAIN MED WITHOUT RELIEF Triage Nursing Assessment: TO ROOM PER W/C, SKIN W/D, COLOR NORMAL, RESP EASY. IS WEARING DARK GLASSES. A/O TIMES FOUR. GOOD ROM TO EXTREMITIES. Physician History: PATIENT WITH A HISTORY OF CHRONIC LOW BACK PAIN, PREVIOUS LUMBAR SURGERY, MIGRAINE HEADACHES, HYPERTENSION, UNDERWENT A STEROID INJECTION 2 DAYS AGO BY HER PAIN SPECIALIST, DEVELOPED ONSET OF LOWER BACK PAIN ASSOCIATED WITH GENERALIZED HEADACHE. HAD NO RELIEF FROM HER 2 PAIN MEDICATIONS, OXYCONTIN AND PERCOCET. DENIES BLURRED VISION, SLURRED SPEECH, FOCAL NUMBNESS, TINGLING OR WEAKNESS IN EXTREMITIES. Timing/Duration: today Method of Injury: other (DENIES INJURY) Quality: sharp Back Pain Location: lumbar spine Back Pain Radiation: buttocks Severity of Pain-Max: moderate Severity of Pain-Current: moderate Modifying Factors: Improves With: movement Associated Symptoms: other (HEADACHE) Allergies/Adverse Reactions: ibuprofen Allergy (Verified 04/20/19 15:59) Hives NSAIDS (Non-Steroidal Anti-Inflamma Allergy (Verified 04/20/19 15:59) Hives Penicillins Allergy (Verified 04/20/19 15:59) Anaphylactic Reaction Home Medications: Meclizine HCl 25 mg [Antivert 25 mg] 25 mg PO TIDPRN PRN 03/28/16 [History ] PANTOPRAZOLE 40 mg Tablet [Protonix 40MG Tablet] 40 mg PO DAILY 03/28/16 [ History] Tizanidine HCl 4 mg [Zanaflex 4 MG] 4 mg PO TIDPRN PRN 03/28/16 [History] Atorvastatin Calcium 40 mg PO DAILY 03/29/16 [History] Oxycodone HCl Cr 20 mg [Oxycontin 20 MG ER] 20 mg PO BID 04/11/17 [History ] Lorazepam 0.5 mg [Ativan 0.5 MG] 0.5 mg PO DAILY PRN PRN 12/28/17 [History ] Oxycodone HCl/Acetaminophen [Percocet 7.5-325 mg Tablet] 1 each PO BID 03/08/18 [History] Pregabalin [Lyrica 150Mg] 150 mg PO BID 12/12/18 [History] Hx Tetanus, Diphtheria Vaccination/Date Given: Yes Hx Influenza Vaccination/Date Given: Yes Hx Pneumococcal Vaccination/Date Given: Yes - Review of Systems Constitutional: No Symptoms, No Fever, No Chills Eyes: No Symptoms Ears, Nose, & Throat: No Symptoms Respiratory: No Cough, No Dyspnea Cardiac: No Symptoms, No Chest Pain, No Edema, No Syncope Abdominal/Gastrointestinal: No Symptoms, No Abdominal Pain, No Nausea, No Vomiting, No Diarrhea Genitourinary Symptoms: No Symptoms, No Dysuria Musculoskeletal: Back Pain, No Neck Pain Skin: No Symptoms, No Rash Neurological: Headache, No Dizziness, No Focal Weakness, No Sensory Changes Psychological: No Symptoms Endocrine: No Symptoms All Other Systems: Reviewed and Negative - Past Medical History Pertinent Past Medical History: Yes Neurological History: Migraines, TIA ENT History: Cataracts Cardiac History: Coronary Artery Disease, High Cholesterol, Hypertension Respiratory History: No Pertinent History Endocrine Medical History: Other Musculoskeletal History: No Pertinent History GI Medical History: Gallbladder Disease History: No Pertinent History Psycho-Social History: Anxiety, Depression Female Reproductive Disorders: No Pertinent History Other Medical History: chronic pain,anemia, hepatitis c viral free for 4 yrs. - Past Surgical History Past Surgical History: Yes Neuro Surgical History: No Pertinent History Cardiac: CABG, Vascular Surgery Respiratory: No Pertinent History Gastrointestinal: Cholecystectomy Genitourinary: No Pertinent History Musculoskeletal: Joint Replacement, Orthopedic Surgery Female Surgical History: Hysterectomy Other Surgical History: Bilateral SHOULDERS, BACK,left knee - Social History Smoking Status: Current every day smoker How long have you smoked: 53 years Exposure to second hand smoke: Yes Alcohol Use: None Drug Use: none Patient Lives Alone: No Significant Family History: no pertinent family hx - Female History Hx Now: No - Nursing Vital Signs Nursing Vital Signs: Initial Vital Signs Temperature 98.6 F 04/20/19 15:53 Pulse Rate 72 04/20/19 15:53 Respiratory Rate 16 04/20/19 15:53 Blood Pressure 120/78 04/20/19 15:53 O2 Sat by Pulse Oximetry 96 04/20/19 15:53 Pain Scale Pain Intensity [Back] 10 Pain Intensity 3 - Physical Exam General Appearance: no apparent distress, alert Eye Exam: PERRL/EOMI, eyes nml inspection Ears, Nose, Throat Exam: normal ENT inspection Neck Exam: normal inspection, non-tender, supple, full range of motion, No meningismus, No midline tenderness Respiratory Exam: normal breath sounds, lungs clear, No respiratory distress Cardiovascular Exam: regular rate/rhythm, normal heart sounds Gastrointestinal Exam: soft, normal bowel sounds, No tenderness, No mass Back Exam: normal inspection, decreased range of motion Extremity Exam: normal inspection, normal range of motion, No calf tenderness, No pedal edema Peripheral Pulses: carotid (R): 2+, carotid (L): 2+, femoral (R): 2+, femoral (L ): 2+, dorsalis-pedis (R): 2+, dorsalis-pedis (L): 2+ Neurologic Exam: alert, oriented x 3, cooperative, 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, normal mood/affect, nml station & gait, sensation nml, No motor deficits Skin Exam: normal color, warm, dry, No rash SpO2 Interpretation: normal SpO2: 99 - CT Exams Lumbar Spine CT Interpretation: Tele-radiologist Report (MODERATE TO HIGH GRADE ANTERIOR COMPRESSION FRACTURE OF T-12, NO SIGNIFICANT PROGRESS COMPARED TO JANUARY 2015, SMALL POSTERIOR CENTRAL DISC PROTRUSION AT L4-L5 WITH MILD TO MODERATE FACET HYPERTROPHY, NO ACUTE CHANGES COMPARED TO 01/2015) Ordered Tests: Active Orders 24 hr Category Date Time Status LUMBAR SPINE W/O [CT] Stat Exams 04/20/19 16:24 Taken CULTURE,URINE Stat Lab 04/20/19 17:14 Received UA W/RFX UR CULTURE Stat Lab 04/20/19 17:14 Completed Medication Summary Generic Name Dose Route Start Last Admin Trade Name Freq PRN Reason Stop Dose Admin Sodium Chloride 1,000 mls @ 100 mls/hr 04/20/19 16:30 04/20/19 16:49 Sodium Chloride 0.9% 1000 Ml IV 05/20/19 16:29 100 mls/hr .Q10H RANDY Administration Discontinued Medications Generic Name Dose Route Start Last Admin Trade Name Freq PRN Reason Stop Dose Admin Gabapentin 800 mg 04/20/19 17:09 04/20/19 17:13 Neurontin 400 Mg PO 04/20/19 17:10 Not Given STAT ONE Levofloxacin/Dextrose 500 mg in 100 mls @ 100 mls/hr 04/20/19 17:30 04/20/19 18:42 Levofloxacin 500mg/100ml D5w IV 04/20/19 18:29 Infused STAT STA Infusion Levofloxacin/Dextrose Confirm 04/20/19 17:34 Levofloxacin 500mg/100ml D5w Administered 04/20/19 17:35 Dose 500 mg in 100 mls @ ud IV .STK-MED ONE Morphine Sulfate 4 mg 04/20/19 16:23 04/20/19 16:52 Morphine Sulfate 4 Mg Inj IV 04/20/19 16:24 4 mg STAT ONE Administration Morphine Sulfate Confirm 04/20/19 16:39 Morphine Sulfate 4 Mg Inj Administered 04/20/19 16:40 Dose 4 mg .ROUTE .STK-MED ONE Ondansetron HCl 4 mg 04/20/19 16:23 04/20/19 16:51 Zofran 4 Mg/2 Ml Vial IV 04/20/19 16:24 4 mg STAT ONE Administration Ondansetron HCl Confirm 04/20/19 16:38 Zofran 4 Mg/2 Ml Vial Administered 04/20/19 16:39 Dose 4 mg .ROUTE .STK-MED ONE Lab/Rad Data: Laboratory Results 04/20/19 Range/Units 17:14 Urine Color YELLOW (YELLOW) Urine Appearance CLOUDY (CLEAR) Urine pH 5.0 (5-6) Ur Specific [place] 1.025 (1.005-1.025) Urine Protein 30 (Negative) Urine Ketones NEGATIVE (NEGATIVE) Urine Blood NEGATIVE (0-5) Camron/ul Urine Nitrite POSITIVE (NEGATIVE) Urine Bilirubin NEGATIVE (NEGATIVE) Urine Urobilinogen NEGATIVE (0-1) mg/dL Ur Leukocyte Esterase MODERATE (NEGATIVE) Urine WBC (Auto) 51-100 (0-5) /HPF Urine RBC (Auto) 6-10 (0-2) /HPF U Hyaline Cast (Auto) 11-25 (0-2) /LPF U Epithel Cells (Auto) MODERATE (FEW) /HPF Urine Bacteria (Auto) MODERATE (NEGATIVE) /HPF Unidentified Crystals 25-50 (NEGATIVE) /HPF Urine Mucus (Auto) SLIGHT (NEGATIVE) /HPF Urine Culture Reflexed YES (NO) Urine Glucose NEGATIVE (NEGATIVE) mg/dL - Progress Progress Note: 04/20/19 17:38 IV NORMAL SALINE 100ML/HR, ZOFRAN 4MG, MORPHINE 4MG IV 04/20/19 17:38, LABS REVIEWED U/A WBC 51-100 CIRA MODERATE - Departure Departure Disposition: Home Clinical Impression: CHRONIC LOW BACK PAIN, URINARY TRACT INFECTION Condition: Stable Critical Care Time: No Referrals: JOON RABAGO MD [Primary Care Provider] - Additional Instructions: CONTINUE ALL CURRENT MEDICATIONS. FOLLOWUP WITH YOUR PAIN SPECIALIST TOMORROW. ANTIBIOTIC LEVAQUIN 500MG DAILY FOR 10 DAYS. Prescriptions: Levofloxacin [Levaquin] 500 mg PO DAILY #10 tablet
[2019-04-20 18:02] VITALS: BP 126/74; PULSE 74
[2019-04-20 18:53] VITALS: O2SAT 99
--- NOTE | 2019-04-20 21:33 | XRAY ---
Indication: Severe low back pain. Multiple contiguous axial images obtained through the lumbar spine. Sagittal and coronal reformatted images obtained. Comparison: Lumbar radiograph June 25, 2018. Stable remote T12 superior endplate fracture, bilateral L4-S1 degenerative facet arthropathy, L5-S1 fusion surgery with intervertebral cages, and scattered aortoiliac calcifications. Mild broad-based L4-L5 disc bulge. Sagittal and coronal reformatted images demonstrates normal alignment with disc spaces maintained. Impression: Stable nonacute lumbar spine with chronic features. Comment: Preliminary interpretation was made by [facility]. No discrepancy. CTDI 140.00
== END 2019-04-20 19:08 | disposition home or self-care (01) ==
LOC: ED 15:42
DX: M54.5 Low back pain (principal); N39.0 Urinary tract infection, site not specified; Z79.899 Other long term (current) drug therapy
CPT/HCPCS: 36000; 72131; 81001; 87077; 87086; 87186; 96360; 96361; 96365; 96374; 96375; 99284; J1956; J2270; J2405

== ENCOUNTER 2019-09-11 22:07 | Emergency (ER) | payer MEDICARE ==
[2019-09-11] MEDS ORDERED: Zofran 4 MG/2 ML VIAL IV ONE (22:40)
[2019-09-11] MEDS ORDERED: Sodium Chloride 0.9% 1000 ML 1,000 ML IV STA (22:40)
[2019-09-11 23:07] LABS: Absolute Neutrophil Ct (ANC) 4.54 (1.4-6.9); BASOPHIL % 0.3 % (0.0-0.4); Basophil (Absolute #) 0.02 (0-0.4); Eosinophil % 3.3 % (0.00-5.0); Eosinophil (Absolute #) 0.21 (0-0.5); Hemoglobin 10.8 gm/dl (12.0-16.0); Lymphocyte (Absolute #) 0.92 (1.0-4.6); Lymphocytes % 14.6 % (24.0-44.0); Mean Corpuscular Hgb Concent. 30.9 g/dl (32-36); Mean Platelet Volume 11.8 fl (6-9.5); Monocyte (Absolute #) 0.61 (0.0-1.3); Monocytes % 9.7 % (0.0-12.0); Neutrophil % 72.1 % (36.0-66.0); Platelet Count 195 K/mm3 (150-450); Red Blood Count 4.49 M/mm3 (4.1-5.4); Red Cell Distribution Width 19.4 % (11.5-14.0); White Blood Count 6.3 K/mm3 (4.0-10.5)
[2019-09-11] MEDS ORDERED: Sodium Chloride 0.9% 1000 ML 1,000 ML ONE (23:14)
[2019-09-11] MEDS ORDERED: Zofran 4 MG/2 ML VIAL ONE (23:14)
[2019-09-11 23:19] LABS: ALBUMIN 3.6 g/dL (3.5-5.0); BILIRUBIN,TOTAL 0.5 mg/dL (0.2-1.3); Calcium 9.1 mg/dL (8.4-10.2); Creatinine 1 1.01 mg/dL (0.52-1.04); Potassium 4.7 mmol/L (3.5-5.1); Total Protein 7.4 g/dL (6.3-8.2)
[2019-09-11 23:24] LABS: Appearance SLIGHTLY CLOUDY (CLEAR); Bilirubin NEGATIVE (NEGATIVE); Blood SMALL Ery/ul (0-5); Epithelial Cells RARE /HPF (FEW); Glucose NEGATIVE (NEGATIVE); Ketones NEGATIVE (NEGATIVE); Leukocyte Esterase MODERATE (NEGATIVE); Mucus SLIGHT /HPF (NEGATIVE); Nitrite NEGATIVE (NEGATIVE); Protein,Urine Dip NEGATIVE (Negative); RBC 0-2 /HPF (0-2); Specific Gravity 1.017 (1.005-1.025); Urobilinogen 2 mg/dL (0-1)
--- NOTE | 2019-09-11 23:31 | ERPHSYRPT ---
- History of Present Illness Time Seen by Provider: 09/11/19 22:20 Historian: patient, family Exam Limitations: no limitations Patient Subjective Stated Complaint: pt states she has been having lower abdominal pain for 3 days, pt states she believes she may have a bladder infection and wants to be checked out. pt has had some nausea but no vomiting. Triage Nursing Assessment: pt vitals wnl, pt states her pain is a 10/10 in abdominal area. pt urine is dark yellow and clear. Physician History: 64 y/o obese white female presents with left flank pain with radiation to right mid abd. nausea but no vomiting. pain worsening. pt did have a few diarrheal stools but that is improving. Timing/Duration: day(s) (3 to 4 days) Activities at Onset: none Abdominal Pain Onset Location: flank (left) Pain Radiation: LUQ, periumbilical Severity of Pain-Max: moderate Severity of Pain-Current: moderate Modifying Factors: Improves With: vomiting, other (nausea) Previous symptoms: no prior history Allergies/Adverse Reactions: ibuprofen Allergy (Verified 09/11/19 22:37) Hives NSAIDS (Non-Steroidal Anti-Inflamma Allergy (Verified 09/11/19 22:37) Hives Penicillins Allergy (Verified 09/11/19 22:37) Anaphylactic Reaction Home Medications: Meclizine HCl 25 mg [Antivert 25 mg] 25 mg PO TIDPRN PRN 03/28/16 [History ] PANTOPRAZOLE 40 mg Tablet [Protonix 40MG Tablet] 40 mg PO DAILY 03/28/16 [ History] Tizanidine HCl 4 mg [Zanaflex 4 MG] 4 mg PO TIDPRN PRN 03/28/16 [History] Atorvastatin Calcium 40 mg PO DAILY 03/29/16 [History] Oxycodone HCl Cr 20 mg [Oxycontin 20 MG ER] 20 mg PO BID 04/11/17 [History ] Lorazepam 0.5 mg [Ativan 0.5 MG] 0.5 mg PO DAILY PRN PRN 12/28/17 [History ] Pregabalin [Lyrica 150Mg] 150 mg PO BID 12/12/18 [History] Hx Tetanus, Diphtheria Vaccination/Date Given: Yes Hx Influenza Vaccination/Date Given: Yes Hx Pneumococcal Vaccination/Date Given: Yes - Review of Systems Constitutional: No Symptoms Eyes: No Symptoms Ears, Nose, & Throat: No Symptoms Respiratory: No Symptoms Cardiac: No Symptoms Abdominal/Gastrointestinal: Abdominal Pain (mild luq and mid), Nausea, Vomiting , No Diarrhea Genitourinary Symptoms: No Symptoms Musculoskeletal: No Symptoms Skin: No Symptoms Neurological: No Symptoms Psychological: No Symptoms Endocrine: No Symptoms Hematologic/Lymphatic: No Symptoms Immunological/Allergic: No Symptoms All Other Systems: Reviewed and Negative - Past Medical History Pertinent Past Medical History: Yes Neurological History: Migraines, TIA ENT History: Cataracts Cardiac History: Coronary Artery Disease, High Cholesterol, Hypertension Respiratory History: No Pertinent History Endocrine Medical History: Other Musculoskeletal History: No Pertinent History GI Medical History: Gallbladder Disease History: No Pertinent History Psycho-Social History: Anxiety, Depression Female Reproductive Disorders: No Pertinent History Other Medical History: chronic pain,anemia, hepatitis c viral free for 4 yrs. - Past Surgical History Past Surgical History: Yes Neuro Surgical History: No Pertinent History Cardiac: CABG, Vascular Surgery Respiratory: No Pertinent History Gastrointestinal: Cholecystectomy Genitourinary: No Pertinent History Musculoskeletal: Joint Replacement, Orthopedic Surgery Female Surgical History: Hysterectomy Other Surgical History: Bilateral SHOULDERS, BACK,left knee - Social History Smoking Status: Current every day smoker How long have you smoked: 53 years Exposure to second hand smoke: Yes Alcohol Use: None Drug Use: none Patient Lives Alone: No Significant Family History: no pertinent family hx - Nursing Vital Signs Nursing Vital Signs: Initial Vital Signs Temperature 97.7 F 09/11/19 22:18 Pulse Rate 78 09/11/19 22:18 Respiratory Rate 18 09/11/19 22:18 Blood Pressure 139/72 09/11/19 22:18 O2 Sat by Pulse Oximetry 96 09/11/19 22:18 Pain Scale Pain Intensity 10 - Physical Exam General Appearance: mild distress, alert, anxiety Eye Exam: PERRL/EOMI, eyes nml inspection Ears, Nose, Throat Exam: normal ENT inspection, moist mucous membranes Neck Exam: normal inspection, non-tender, supple, full range of motion Respiratory Exam: normal breath sounds, lungs clear, airway intact, No chest tenderness, No respiratory distress Cardiovascular Exam: regular rate/rhythm, normal heart sounds, normal peripheral pulses Gastrointestinal/Abdomen Exam: soft, normal bowel sounds, tenderness, No guarding, No rebound Pelvic Exam: not done Rectal Exam: not done Back Exam: normal inspection, normal range of motion, CVA tenderness (left), No vertebral tenderness Extremity Exam: normal inspection, normal range of motion, pelvis stable Neurologic Exam: alert, oriented x 3, 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, 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 Skin Exam: normal color, warm, dry Lymphatic Exam: No adenopathy SpO2 Interpretation: normal SpO2: 96 O2 Delivery: Room Air - Course Nursing assessment & vital signs reviewed: Yes Ordered Tests: Active Orders 24 hr Category Date Time Status IV Insertion STAT Care 09/11/19 22:40 Active ABDOMEN AND PELVIS W/0 CONTRAS [CT] Stat Exams 09/11/19 23:14 Taken AMYLASE Stat Lab 09/11/19 23:04 Completed CBC W DIFF Stat Lab 09/11/19 23:04 Completed CMP Stat Lab 09/11/19 23:04 Completed CULTURE,URINE Stat Lab 09/11/19 23:00 Received LIPASE Stat Lab 09/11/19 23:04 Completed Lactic Acid Stat Lab 09/11/19 23:00 Completed UA W/RFX UR CULTURE Stat Lab 09/11/19 23:00 Completed Medication Summary Discontinued Medications Generic Name Dose Route Start Last Admin Trade Name Freq PRN Reason Stop Dose Admin Sodium Chloride 1,000 mls @ 999 mls/hr 09/11/19 22:40 09/11/19 23:26 Sodium Chloride 0.9% 1000 Ml IV 09/11/19 23:40 999 mls/hr .Q1H1M STA Administration Sodium Chloride Confirm 09/11/19 23:14 Sodium Chloride 0.9% 1000 Ml Administered 09/11/19 23:15 Dose 1,000 mls @ ud .ROUTE .STK-MED ONE Ondansetron HCl 4 mg 09/11/19 22:40 09/11/19 23:26 Zofran 4 Mg/2 Ml Vial IV 09/11/19 22:41 4 mg STAT ONE Administration Ondansetron HCl Confirm 09/11/19 23:14 Zofran 4 Mg/2 Ml Vial Administered 09/11/19 23:15 Dose 4 mg .ROUTE .STK-MED ONE Lab/Rad Data: Laboratory Result Diagrams 09/11/19 23:04 09/11/19 23:04 Laboratory Results 1109/11/19 09/11/19 Range/Units 23:04 23:04 23:00 WBC 6.3 (4.0-10.5) K/mm3 RBC 4.49 (4.1-5.4) M/mm3 Hgb 10.8 L (12.0-16.0) gm/dl Hct 35.0 (35-47) % MCV 78.0 (78-100) fl MCH 24.0 L (26-32) pg MCHC 30.9 L (32-36) g/dl RDW 19.4 H (11.5-14.0) % Plt Count 195 (150-450) K/mm3 MPV 11.8 H (6-9.5) fl Gran % 72.1 H (36.0-66.0) % Eos # (Auto) 0.21 (0-0.5) Absolute Lymphs (auto) 0.92 L (1.0-4.6) Absolute Monos (auto) 0.61 (0.0-1.3) Lymphocytes % 14.6 L (24.0-44.0) % Monocytes % 9.7 (0.0-12.0) % Eosinophils % 3.3 (0.00-5.0) % Basophils % 0.3 (0.0-0.4) % Absolute Granulocytes 4.54 (1.4-6.9) Basophils # 0.02 (0-0.4) Sodium 137 (137-145) mmol/L Potassium 4.7 (3.5-5.1) mmol/L Chloride 104 (98-107) mmol/L Carbon Dioxide 24 (22-30) mmol/L Anion Gap 13.0 (5-15) MEQ/L BUN 21 H (7-17) mg/dL Creatinine 1.01 (0.52-1.04) mg/dL Estimated GFR 58.3 ML/MIN Glucose 110 H (74-106) mg/dL Lactic Acid (0.4-2.0) Calcium 9.1 (8.4-10.2) mg/dL Total Bilirubin 0.50 (0.2-1.3) mg/dL AST 19 (14-36) U/L ALT 11 (0-35) U/L Alkaline Phosphatase 96 (38-126) U/L Serum Total Protein 7.4 (6.3-8.2) g/dL Albumin 3.6 (3.5-5.0) g/dL Amylase 65 (30-110) U/L Lipase 100 (23-300) U/L Urine Color YELLOW (YELLOW) Urine Appearance SLIGHTLY CLOUDY (CLEAR) Urine pH 5.0 (5-6) Ur Specific [place] 1.017 (1.005-1.025) Urine Protein NEGATIVE (Negative) Urine Ketones NEGATIVE (NEGATIVE) Urine Blood SMALL (0-5) Camron/ul Urine Nitrite NEGATIVE (NEGATIVE) Urine Bilirubin NEGATIVE (NEGATIVE) Urine Urobilinogen 2 (0-1) mg/dL Ur Leukocyte Esterase MODERATE (NEGATIVE) Urine WBC (Auto) 3-5 (0-5) /HPF Urine RBC (Auto) 0-2 (0-2) /HPF U Epithel Cells (Auto) RARE (FEW) /HPF Urine Bacteria (Auto) NONE (NEGATIVE) /HPF Urine Mucus (Auto) SLIGHT (NEGATIVE) /HPF Urine Culture Reflexed YES (NO) Urine Glucose NEGATIVE (NEGATIVE) mg/dL 09/11/19 Range/Units 23:00 WBC (4.0-10.5) K/mm3 RBC (4.1-5.4) M/mm3 Hgb (12.0-16.0) gm/dl Hct (35-47) % MCV (78-100) fl MCH (26-32) pg MCHC (32-36) g/dl RDW (11.5-14.0) % Plt Count (150-450) K/mm3 MPV (6-9.5) fl Gran % (36.0-66.0) % Eos # (Auto) (0-0.5) Absolute Lymphs (auto) (1.0-4.6) Absolute Monos (auto) (0.0-1.3) Lymphocytes % (24.0-44.0) % Monocytes % (0.0-12.0) % Eosinophils % (0.00-5.0) % Basophils % (0.0-0.4) % Absolute Granulocytes (1.4-6.9) Basophils # (0-0.4) Sodium (137-145) mmol/L Potassium (3.5-5.1) mmol/L Chloride (98-107) mmol/L Carbon Dioxide (22-30) mmol/L Anion Gap (5-15) MEQ/L BUN (7-17) mg/dL Creatinine (0.52-1.04) mg/dL Estimated GFR ML/MIN Glucose (74-106) mg/dL Lactic Acid 1.5 (0.4-2.0) Calcium (8.4-10.2) mg/dL Total Bilirubin (0.2-1.3) mg/dL AST (14-36) U/L ALT (0-35) U/L Alkaline Phosphatase (38-126) U/L Serum Total Protein (6.3-8.2) g/dL Albumin (3.5-5.0) g/dL Amylase (30-110) U/L Lipase (23-300) U/L Urine Color (YELLOW) Urine Appearance (CLEAR) Urine pH (5-6) Ur Specific [place] (1.005-1.025) Urine Protein (Negative) Urine Ketones (NEGATIVE) Urine Blood (0-5) Camron/ul Urine Nitrite (NEGATIVE) Urine Bilirubin (NEGATIVE) Urine Urobilinogen (0-1) mg/dL Ur Leukocyte Esterase (NEGATIVE) Urine WBC (Auto) (0-5) /HPF Urine RBC (Auto) (0-2) /HPF U Epithel Cells (Auto) (FEW) /HPF Urine Bacteria (Auto) (NEGATIVE) /HPF Urine Mucus (Auto) (NEGATIVE) /HPF Urine Culture Reflexed (NO) Urine Glucose (NEGATIVE) mg/dL - Progress Progress: improved Progress Note: 09/12/19 00:04 ct abd/pelvis-colitis distal transverse colon and desc colon with mild stranding. Counseled pt/family regarding: lab results, diagnosis, need for follow-up, rad results - Departure Departure Disposition: Home Clinical Impression: Colitis Condition: Stable Critical Care Time: No Referrals: JOON RABAGO MD [Primary Care Provider] - Additional Instructions: drink plenty of clear liquids. follow up with primary doctor for further management Prescriptions: Hydrocodone/APAP 5-325 Tab^^^ [[place] 5-325 Tablet^^^] 1 tab PO Q8H PRN PRN #10 tablet MDD 3 PRN Reason: Pain Ciprofloxacin [Cipro 500 MG] 500 mg PO BID #14 tablet Metronidazole 500 mg [Flagyl 500 MG] 500 mg PO TID #21 tablet
[2019-09-12] MEDS ORDERED: Flagyl 500 MG PO ONE (00:09)
[2019-09-12] MEDS ORDERED: Hydromorphone 1 mg/ml Ampule IV ONE (00:09)
[2019-09-12] MEDS ORDERED: Cipro 500 MG PO ONE (00:10)
[2019-09-12] MEDS ORDERED: Cipro 500 MG ONE (00:23)
[2019-09-12] MEDS ORDERED: Flagyl 500 MG ONE (00:24)
[2019-09-12] MEDS ORDERED: Hydromorphone 1 mg/ml Ampule ONE (00:24)
[2019-09-12 01:10] VITALS: BP 91/64; PULSE 87; O2SAT 98
--- NOTE | 2019-09-12 09:42 | XRAY ---
Indication: Left flank and bilateral pelvic pain. Multiple contiguous axial images obtained through the abdomen and pelvis without contrast as ordered. Comparison: None Lung bases demonstrates minimal fibrosis/scarring. Heart is not enlarged. Noncontrasted stomach and bowel loops appear nonobstructed. Appendix not seen. Mid to distal transverse colon and majority of the descending and sigmoid colon demonstrates mild circumferential wall thickening with mild stranding favoring colitis. No free fluid/air. Scattered sigmoid diverticulosis. Previous cholecystectomy. Spleen is enlarged measuring 13.1 cm in greatest axial dimension. Left upper kidney demonstrate cortical thinning/scarring. Urinary bladder demonstrates tiny intraluminal air bubble either iatrogenic from recent catheterization versus gas-forming bacterial infection. Remaining liver, pancreas, adrenal glands, kidneys, ureters, and bladder appear unremarkable for noncontrast exam. Scattered aortoiliac calcifications without AAA. Osseous structures demonstrates mild degenerative changes throughout the thoracolumbar spine, remote T12 superior endplate fracture, and L5-S1 fusion with intervertebral cages. Impression: 1. Left hemicolon colitis without complications. Sigmoid diverticulosis. 2. Urinary bladder intraluminal air bubble either iatrogenic versus gas-forming bacterial infection. 3. Incidental left renal cortical thinning/scarring, splenomegaly, and chronic bony findings. Comment: Preliminary interpretation was made by [facility]. No discrepancy. CT DI 22.85
== END 2019-09-12 01:09 | disposition home or self-care (01) ==
LOC: ED 22:07
DX: K52.9 Noninfective gastroenteritis and colitis, unspecified (principal)
CPT/HCPCS: 36000; 36415; 74176; 80053; 81001; 82150; 83605; 83690; 85025; 87077; 87086; 87186; 96374; 96375; 99284; J1170; J2405; A9270-GY

== ENCOUNTER 2020-02-28 20:04 | Emergency (ER) | payer MEDICARE ==
[2020-02-28] MEDS ORDERED: TYLENOL 325 MG PO ONE (20:33)
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
[2020-02-28] MEDS ORDERED: ZOFRAN ODT 4 MG PO ONE (20:34)
[2020-02-28] MEDS ORDERED: ZOFRAN ODT 4 MG ONE (20:42)
[2020-02-28] MEDS ORDERED: TYLENOL 325 MG ONE (20:42)
[2020-02-28 21:01] LABS: Appearance SLIGHTLY CLOUDY (CLEAR); Bilirubin NEGATIVE (NEGATIVE); Blood NEGATIVE Ery/ul (0-5); Epithelial Cells RARE /HPF (FEW); Glucose NEGATIVE (NEGATIVE); Ketones NEGATIVE (NEGATIVE); Leukocyte Esterase SMALL (NEGATIVE); Mucus SLIGHT /HPF (NEGATIVE); Nitrite NEGATIVE (NEGATIVE); Protein,Urine Dip NEGATIVE (Negative); RBC 0-2 /HPF (0-2); Urobilinogen NEGATIVE mg/dL (0-1); WBC 26-50 /HPF (0-5)
[2020-02-28 21:19] VITALS: PULSE 64
[2020-02-28 23:03] VITALS: BP 130/70; O2SAT 95
--- NOTE | 2020-02-29 08:43 | XRAY ---
Indication: Neck pain following fall February 24, 2020. Multiple contiguous axial images obtained through the cervical spine. Sagittal and coronal reformatted images obtained. Comparison: April 10, 2017. Axial images again negative for acute fracture, suspicious bony lesions, or spinal canal stenosis. Again minimal C5-C7 degenerative endplate spurring and mild right C2-C3 degenerative facet hypertrophy. Sagittal and coronal reformatted images demonstrates minimal lordotic straightening, positional versus paraspinal spasm. Stable minimal C6-C7 disc space narrowing. No acute compression fracture, subluxation, or jumped facet. Normal-appearing craniocervical junction. Visualized noncontrasted soft tissues again demonstrates minimal right carotid calcifications. Base of the brain and lung apices unremarkable. Impression: 1. Lordotic straightening, positional versus paraspinal spasm. 2. Stable minimal/mild multilevel degenerative changes. 3. Continued negative for acute fracture/subluxation. Comment: Preliminary interpretation was made by [facility]. No critical discrepancy.
== END 2020-02-28 23:12 | disposition home or self-care (01) ==
LOC: ED 20:04
DX: W18.39XA Other fall on same level, initial encounter (principal); Y93.89 Activity, other specified; Y92.89 Other specified places as the place of occurrence of the external cause; S06.0X0A Concussion without loss of consciousness, initial encounter; M54.2 Cervicalgia; M54.5 Low back pain; G89.29 Other chronic pain; F45.42 Pain disorder with related psychological factors; J44.9 Chronic obstructive pulmonary disease, unspecified; Z79.899 Other long term (current) drug therapy; I10 Essential (primary) hypertension; E78.00 Pure hypercholesterolemia, unspecified; B19.20 Unspecified viral hepatitis C without hepatic coma; Z72.0 Tobacco use
CPT/HCPCS: 72125; 81001; 87086; 93005; 99284; Q0162; A9270-GY

== ENCOUNTER 2020-03-10 09:30 | Day surgery (SDC) | payer MEDICARE ==
[2020-03-10] MEDS ORDERED: Marcaine 0.5% SDV 10 ML IJ ONE (09:31)
[2020-03-10] MEDS ORDERED: Ketamine HCl 50 MG/ML ONE (10:28)
[2020-03-10] MEDS ORDERED: DIPRIVAN 200 MG/20 ML IV ONE (10:28)
[2020-03-10] MEDS ORDERED: Lactated Ringers 1,000 ML IV ONE (15:17)
--- NOTE | 2020-03-10 16:41 | XRAY ---
12 seconds fluoroscopy time in surgery for right genicular nerve block.
--- NOTE | 2020-03-13 18:53 | XRAY ---
Indication: Right knee genicular nerve block. Intraoperative fluoroscopy was provided for 12 seconds. 2 digital spot images submitted for interpretation demonstrate a needle tip at both the medial margin and lateral margin of the supracondylar portion of the distal right femur and a third needle tip projected at the medial margin of the proximal right tibia. Some surgical clips are incidentally noted posteriorly. Correlate with intraoperative findings/report.
== END 2020-03-10 10:51 | disposition home or self-care (01) ==
LOC: SDC-PAIN 09:30
PROVIDERS: ATTEND Psychiatry & Neurology Pain Medicine
DX: M17.11 Unilateral primary osteoarthritis, right knee (principal); I10 Essential (primary) hypertension; D64.9 Anemia, unspecified; Z79.899 Other long term (current) drug therapy
CPT/HCPCS: 64454; 73560; 77002; J2704

== ENCOUNTER 2020-03-29 15:23 | Emergency (ER) | payer MEDICARE ==
[2020-03-29] MEDS ORDERED: NARCAN 2 MG/2 ML ONE (15:47)
[2020-03-29] MEDS ORDERED: Narcan 0.4 MG/ML ONE ×3 (15:49→18:40)
[2020-03-29 15:55] LABS: A-aADO2 88; ABG HEMOGLOBIN 13.4; ABG POTASSIUM 4.6 (3.5-5.1); ABG SITE RIGHT RADIAL; ALLEN TEST OK? YES; ARTERIAL BLOOD GAS FIO2 32 %; ARTERIAL BLOOD GAS PCO2 54 mmHg (35-45); ARTERIAL BLOOD GAS PO2 73 mmHg (75-100); ARTERIAL BLOOD GAS pH 7.31 (7.35-7.45); CARBOXYHEMOGLOBIN 3.6 % THgb (0.0-6.9); HCO3- 27.2 (22-28); HGB O2 SAT 91.1 g/dF (94-100); Methhemoglobin 0.5 % (1.4-1.5); paO2 pAO1 0.45
--- NOTE | 2020-03-29 16:35 | XRAY ---
Indication: Acute mental status change and lethargy. Possible overdose. Multiple contiguous axial images obtained through the head without contrast. Comparison: December 12, 2018. Stable age-appropriate global atrophy, minimal periventricular degenerative micro-ischemia bilaterally, and remote left caudate lacunar infarct. New remote appearing lacunar infarcts right basal ganglia and right mid velasquez radiata. No acute intracranial hemorrhage, abnormal extra-axial fluid collection, or mass effect fourth ventricle is midline without hydrocephalus. Bony calvarium intact. Visualized paranasal sinuses and mastoid air cells are clear. Impression: Nonacute senile brain with bilateral remote lacunar infarcts.
--- NOTE | 2020-03-29 16:36 | XRAY ---
Indication: Cough and dyspnea. Comparison: November 13, 2018. Portable chest again demonstrates lingula infiltrate/atelectasis. Remaining heart and lungs unremarkable again with CABG surgery. Bony thorax intact again with osteopenia and bilateral shoulder arthroplasty. Impression: Again lingula infiltrate/atelectasis. Correlate clinically.
[2020-03-29] MEDS ORDERED: TRANDATE 20 MG/5 ML SYRINGE IV ONE ×4 (16:50→19:09)
[2020-03-29 17:03] LABS: Absolute Neutrophil Ct (ANC) 5.23 (1.4-6.9); BASOPHIL % 0.2 % (0.0-0.4); Basophil (Absolute #) 0.01 (0-0.4); Eosinophil % 0.2 % (0.00-5.0); Eosinophil (Absolute #) 0.01 (0-0.5); Hematocrit 43.3 % (35-47); Hemoglobin 13.4 gm/dl (12.0-16.0); Lymphocyte (Absolute #) 0.45 (1.0-4.6); Lymphocytes % 7.7 % (24.0-44.0); Mean Cell Volume 82.5 fl (78-100); Mean Corpuscular Hemoglobin 25.5 pg (26-32); Mean Corpuscular Hgb Concent. 30.9 g/dl (32-36); Mean Platelet Volume 11.4 fl (7.5-11.0); Monocyte (Absolute #) 0.16 (0.0-1.3); Monocytes % 2.7 % (0.0-12.0); Neutrophil % 89.2 % (36.0-66.0); Platelet Count 188 K/mm3 (150-450); Red Blood Count 5.25 M/mm3 (4.1-5.4); Red Cell Distribution Width 17.4 % (11.5-14.0); White Blood Count 5.9 K/mm3 (4.0-10.5)
[2020-03-29 17:05] LABS: A-aADO2 80; ABG HEMOGLOBIN 12.8; ABG POTASSIUM 4.4 (3.5-5.1); ABG SITE LEFT RADIAL; ALLEN TEST OK? YES; ARTERIAL BLD GAS O2 SATURATION 95.7 % (95-100); ARTERIAL BLOOD GAS BASE EXCESS -0.3 (-2.0-2.0); ARTERIAL BLOOD GAS FIO2 32 %; ARTERIAL BLOOD GAS PCO2 55 mmHg (35-45); ARTERIAL BLOOD GAS PO2 79 mmHg (75-100); CARBOXYHEMOGLOBIN 2.8 % THgb (0.0-6.9); HCO3- 27.1 (22-28); HGB O2 SAT 92.7 g/dF (94-100); Methhemoglobin 0.3 % (1.4-1.5)
[2020-03-29 17:09] LABS: Appearance SLIGHTLY CLOUDY (CLEAR); Bilirubin NEGATIVE (NEGATIVE); Blood NEGATIVE Ery/ul (0-5); Glucose NEGATIVE (NEGATIVE); Ketones NEGATIVE (NEGATIVE); Leukocyte Esterase NEGATIVE (NEGATIVE); Mucus SLIGHT /HPF (NEGATIVE); Nitrite NEGATIVE (NEGATIVE); Protein,Urine Dip 30 (Negative); Specific Gravity 1.014 (1.005-1.025); Urobilinogen NEGATIVE mg/dL (0-1)
[2020-03-29 17:11] LABS: Bacteria NONE SEEN /HPF (NEGATIVE)
[2020-03-29 17:19] LABS: INR 1.06 (0.8-3.0)
[2020-03-29 17:24] LABS: Amphetamine,Urine NEGATIVE (NEGATIVE); Barbiturate,Urine NEGATIVE (NEGATIVE); Benzodiazepine,Urine NEGATIVE (NEGATIVE); Cocaine,Urine NEGATIVE (NEGATIVE); Methadone,Urine NEGATIVE (NEGATIVE); Opiate,Urine POSITIVE (NEGATIVE); PCP,Urine NEGATIVE (NEGATIVE); THC,Urine POSITIVE (NEGATIVE)
[2020-03-29 17:25] LABS: ALBUMIN 3.9 g/dL (3.5-5.0); ALKALINE PHOSPHATASE 119 U/L (38-126); ANION GAP 12.1 MEQ/L (5-15); BLOOD UREA NITROGEN 30 mg/dL (7-17); CHLORIDE 103 mmol/L (98-107); Calcium 9.2 mg/dL (8.4-10.2); Carbon Dioxide 27 mmol/L (22-30); Creatinine 1 1.16 mg/dL (0.52-1.04); Glucose 142 mg/dL (74-106); Potassium 4.8 mmol/L (3.5-5.1); SGOT/AST 31 U/L (14-36); SGPT/ALT 20 U/L (0-35); SODIUM 138 mmol/L (137-145); Total Protein 7.8 g/dL (6.3-8.2)
[2020-03-29 17:26] LABS: ETHYL ALCOHOL < 10 mg/dL (0-10)
--- NOTE | 2020-03-29 18:19 | ERPHSYRPT ---
- History of Present Illness Source: patient, EMS, other Exam Limitations: other (Poor historian due to lethargy) Patient Subjective Stated Complaint: Pt c/o of N&V and a headache today, hx of migraines and head is hurting but did not take anything for it Triage Nursing Assessment: Pt brought to the ER by EMS, oxygen 79-80% on room air, placed on 3L NC and is at 94%, hypertensive, lethargic, keeps falling asleep when asked questions, pulses normal, rates pain 8-9/10, skin n/w/d Physician History: Obese WF brought into ER per EMS w lethargy/N/V. Unable to get adequate history from pt. due to lethargy. Pt arouseable w good airway upon arrival. No obvious focal weakness. Timing/Duration: today Severity: moderate Character of Deficits: new weakness, altered sensation Deficits: cannot walk, decrease ability to walk Baseline/Normal Cognition: poor alertness Associated Symptoms: confusion Allergies/Adverse Reactions: ibuprofen Allergy (Verified 02/28/20 20:44) Hives NSAIDS (Non-Steroidal Anti-Inflamma Allergy (Verified 02/28/20 20:44) Hives Penicillins Allergy (Verified 02/28/20 20:44) Anaphylactic Reaction Home Medications: Meclizine HCl 25 mg [Antivert 25 mg] 25 mg PO TIDPRN PRN 03/28/16 [History ] PANTOPRAZOLE 40 mg Tablet [Protonix 40MG Tablet] 40 mg PO DAILY 03/28/16 [ History] Tizanidine HCl 4 mg [Zanaflex 4 MG] 4 mg PO TIDPRN PRN 03/28/16 [History] Atorvastatin Calcium 40 mg PO DAILY 03/29/16 [History] Pregabalin [Lyrica 150Mg] 300 mg PO BID 12/12/18 [History] Morphine Sulfate Ir 15 mg [Msir 15 mg] 15 mg PO QID 02/28/20 [History] Hx Tetanus, Diphtheria Vaccination/Date Given: Yes Hx Influenza Vaccination/Date Given: Yes Hx Pneumococcal Vaccination/Date Given: Yes Travel Risk - International Travel Have you traveled outside of the country in past 3 weeks: No - Coronavirus Screening Close contact with a COVID-19 positive Pt in past 14-21 Days: No - Review of Systems All Other Systems: Unable due to condition - Past Medical History Pertinent Past Medical History: Yes Neurological History: Migraines, TIA ENT History: Cataracts Cardiac History: Coronary Artery Disease, High Cholesterol, Hypertension Respiratory History: No Pertinent History Endocrine Medical History: Other Musculoskeletal History: Other GI Medical History: Gallbladder Disease History: No Pertinent History Psycho-Social History: Anxiety, Depression Female Reproductive Disorders: No Pertinent History Other Medical History: chronic pain,anemia, hepatitis c viral free for 4 yrs. - Past Surgical History Past Surgical History: Yes Neuro Surgical History: No Pertinent History Cardiac: CABG, Vascular Surgery Respiratory: No Pertinent History Gastrointestinal: Cholecystectomy Genitourinary: No Pertinent History Musculoskeletal: Joint Replacement, Orthopedic Surgery Female Surgical History: Hysterectomy Other Surgical History: Bilateral SHOULDERS, BACK,left knee - Social History Smoking Status: Current every day smoker How long have you smoked: 53 years Exposure to second hand smoke: Yes Alcohol Use: None Drug Use: none Patient Lives Alone: No Significant Family History: no pertinent family hx - Nursing Vital Signs Nursing Vital Signs: Initial Vital Signs Temperature 97.4 F 03/29/20 15:30 Pulse Rate 87 03/29/20 15:30 Blood Pressure 170/97 03/29/20 15:30 O2 Sat by Pulse Oximetry 97 03/29/20 15:30 Pain Scale Pain Intensity 0 - Pradip Coma Scale Best Eye Response ([place]): (3) open to voice Best Verbal Response ([place]): (5) oriented Best Motor Response ([place]): (6) obeys commands Pradip Total: 14 - Physical Exam General Appearance: mild distress, other (Improved w 3L O2 NC) Eye Exam: bilateral eye: normal inspection, PERRL, EOMI Ears, Nose, Throat Exam: normal ENT inspection, TMs normal, pharynx normal Neck Exam: normal inspection, non-tender, full range of motion Respiratory: respiratory distress, airway intact, other (Rales bases B/Sats improved w 3L O2 NC) Cardiovascular: regular rate/rhythm, normal peripheral pulses (2/6 EWELINA) Gastrointestinal: soft, normal bowel sounds, other (Morbidly obese) Pelvic Exam: not done Back Exam: normal inspection, normal range of motion Extremity Exam: normal inspection, normal range of motion Peripheral Pulses: carotid (R): 2+, carotid (L): 2+ Mental Status: depressed affect, lethargy (Oriented x3 when awake) band booker Exam: PERRL, No abnormal gag reflex Motor/Sensory: no motor deficit, no sensory deficit, negative Babinski's sign DTR: bicep (R): 2+, bicep (L): 2+, knee (R): 2+, knee (L): 2+ Skin Exam: normal color, warm, dry SpO2 Interpretation: O2 applied SpO2: 96 O2 Delivery: Nasal Cannula (3L) - Course EKG Interpreted by Me: RATE (NSR/Nothing acute) Ordered Tests: Active Orders 24 hr Category Date Time Status Hotel Engineer STAT Care 03/29/20 16:26 Active EKG-ER Only STAT Care 03/29/20 15:49 Active Kinney [Catheter-[place]ney] STAT Care 03/29/20 16:33 Active IV Insertion STAT Care 03/29/20 15:54 Active IV Insertion-2nd Peripheral STAT Care 03/29/20 16:52 Active CHEST 1 VIEW (PORTABLE) Stat Exams 03/29/20 15:48 Completed CHEST WITHOUT CONTRAST [CT] Stat Exams 03/29/20 16:54 Taken HEAD WITHOUT CONTRAST [CT] Stat Exams 03/29/20 15:51 Completed ABG [ARTERIAL BLOOD GASES] Stat Lab 03/29/20 15:47 Completed ABG [ARTERIAL BLOOD GASES] Stat Lab 03/29/20 17:00 Completed CBC W DIFF Stat Lab 03/29/20 16:45 Completed CMP Stat Lab 03/29/20 16:45 Completed CULTURE,URINE Stat Lab 03/29/20 17:03 Received ETHYL ALCOHOL Stat Lab 03/29/20 16:45 Completed Lactic Acid Stat Lab 03/29/20 15:47 Completed PROTIME WITH INR Stat Lab 03/29/20 16:45 Completed PTT Stat Lab 03/29/20 16:45 Completed TROPONIN Q3H Lab 03/29/20 16:45 Completed TROPONIN Q3H Lab 03/29/20 18:59 Completed TROPONIN Q3H Lab 03/29/20 22:00 Ordered UA W/RFX UR CULTURE Stat Lab 03/29/20 17:03 Completed Urine Triage Profile Stat Lab 03/29/20 17:03 Completed Medication Summary Discontinued Medications Generic Name Dose Route Start Last Admin Trade Name Freq PRN Reason Stop Dose Admin Labetalol HCl 20 mg 03/29/20 16:50 03/29/20 16:53 Trandate 20 Mg/5 Ml Syringe IV 03/29/20 16:51 20 mg STAT ONE Administration Labetalol HCl Confirm 03/29/20 16:53 Trandate 20 Mg/5 Ml Syringe Administered 03/29/20 16:54 Dose 20 mg IV .STK-MED ONE Labetalol HCl 20 mg 03/29/20 19:08 03/29/20 19:10 Trandate 20 Mg/5 Ml Syringe IV 03/29/20 19:09 20 mg STAT ONE Administration Labetalol HCl Confirm 03/29/20 19:09 Trandate 20 Mg/5 Ml Syringe Administered 03/29/20 19:10 Dose 20 mg IV .STK-MED ONE Naloxone HCl Confirm 03/29/20 15:47 Narcan 2 Mg/2 Ml Administered 03/29/20 15:48 Dose 2 mg .ROUTE .STK-MED ONE Naloxone HCl Confirm 03/29/20 15:49 Narcan 0.4 Mg/Ml Administered 03/29/20 15:50 Dose 0.4 mg .ROUTE .STK-MED ONE Naloxone HCl 0.4 mg 03/29/20 18:28 03/29/20 15:30 Narcan 0.4 Mg/Ml IV 03/29/20 18:29 0.4 mg STAT ONE Administration Naloxone HCl Confirm 03/29/20 18:29 Narcan 0.4 Mg/Ml Administered 03/29/20 18:30 Dose 0.8 mg .ROUTE .STK-MED ONE Naloxone HCl 0.4 mg 03/29/20 18:32 03/29/20 18:36 Narcan 0.4 Mg/Ml IV 03/29/20 18:33 0.4 mg STAT ONE Administration Naloxone HCl 0.4 mg 03/29/20 18:33 03/29/20 18:36 Narcan 0.4 Mg/Ml IV 03/29/20 18:34 0.4 mg STAT ONE Administration Naloxone HCl 0.4 mg 03/29/20 18:40 03/29/20 18:43 Narcan 0.4 Mg/Ml IV 03/29/20 18:41 0.4 mg STAT ONE Administration Naloxone HCl Confirm 03/29/20 18:40 Narcan 0.4 Mg/Ml Administered 03/29/20 18:41 Dose 0.4 mg .ROUTE .STK-MED ONE Lab/Rad Data: Laboratory Result Diagrams 03/29/20 16:45 03/29/20 16:45 Laboratory Results 03/29/20 03/29/20 03/29/20 Range/Units 18:59 17:03 17:03 WBC (4.0-10.5) K/mm3 RBC (4.1-5.4) M/mm3 Hgb (12.0-16.0) gm/dl Hct (35-47) % MCV (78-100) fl MCH (26-32) pg MCHC (32-36) g/dl RDW (11.5-14.0) % Plt Count (150-450) K/mm3 MPV (7.5-11.0) fl Gran % (36.0-66.0) % Eos # (Auto) (0-0.5) Absolute Lymphs (auto) (1.0-4.6) Absolute Monos (auto) (0.0-1.3) Lymphocytes % (24.0-44.0) % Monocytes % (0.0-12.0) % Eosinophils % (0.00-5.0) % Basophils % (0.0-0.4) % Absolute Granulocytes (1.4-6.9) Basophils # (0-0.4) PT (9.95-12.35) SECONDS INR (0.8-3.0) APTT (25.3-37.0) SECONDS Puncture Site pCO2 (35-45) mmHg pO2 (75-100) mmHg Base Excess (-2.0-2.0) O2 Saturation (94-100) g/dF ABG pH (7.35-7.45) ABG HCO3 (22-28) ABG O2 Sat (Measured) (95-100) % Charlie Test A-a Gradient a/A Ratio Hemoglobin Carboxyhemoglobin (0.0-6.9) % THgb Methemoglobin (1.4-1.5) % Potassium (3.5-5.1) Temperature C POC O2 Flow Rate % Sodium (137-145) mmol/L Chloride (98-107) mmol/L Carbon Dioxide (22-30) mmol/L Anion Gap (5-15) MEQ/L BUN (7-17) mg/dL Creatinine (0.52-1.04) mg/dL Estimated GFR ML/MIN Glucose (74-106) mg/dL Lactic Acid (0.4-2.0) Calcium (8.4-10.2) mg/dL Total Bilirubin (0.2-1.3) mg/dL AST (14-36) U/L ALT (0-35) U/L Alkaline Phosphatase (38-126) U/L Troponin I 1.220 H* (0.000-0.034) ng/mL Serum Total Protein (6.3-8.2) g/dL Albumin (3.5-5.0) g/dL Urine Color YELLOW (YELLOW) Urine Appearance SLIGHTLY CLOUDY (CLEAR) Urine pH 5.0 (5-6) Ur Specific Schroeder 1.014 (1.005-1.025) Urine Protein 30 (Negative) Urine Ketones NEGATIVE (NEGATIVE) Urine Blood NEGATIVE (0-5) Camron/ul Urine Nitrite NEGATIVE (NEGATIVE) Urine Bilirubin NEGATIVE (NEGATIVE) Urine Urobilinogen NEGATIVE (0-1) mg/dL Ur Leukocyte Esterase NEGATIVE (NEGATIVE) Urine WBC (Auto) NONE (0-5) /HPF Urine RBC (Auto) NONE (0-2) /HPF U Epithel Cells (Auto) NONE (FEW) /HPF Urine Bacteria (Auto) NONE SEEN (NEGATIVE) /HPF Urine Mucus (Auto) SLIGHT (NEGATIVE) /HPF Urine Culture Reflexed ORDERED SEPARATELY (NO) Urine Glucose NEGATIVE (NEGATIVE) mg/dL Urine Opiates Level POSITIVE (NEGATIVE) Ur Methadone NEGATIVE (NEGATIVE) Urine Barbiturates NEGATIVE (NEGATIVE) Ur Phencyclidine (PCP) NEGATIVE (NEGATIVE) Urine Amphetamine NEGATIVE (NEGATIVE) U Benzodiazepine Level NEGATIVE (NEGATIVE) Urine Cocaine NEGATIVE (NEGATIVE) Urine Marijuana (THC) POSITIVE (NEGATIVE) Ethyl Alcohol (0-10) mg/dL 03/29/20 03/29/20 03/29/20 Range/Units 17:00 16:45 16:45 WBC (4.0-10.5) K/mm3 RBC (4.1-5.4) M/mm3 Hgb (12.0-16.0) gm/dl Hct (35-47) % MCV (78-100) fl MCH (26-32) pg MCHC (32-36) g/dl RDW (11.5-14.0) % Plt Count (150-450) K/mm3 MPV (7.5-11.0) fl Gran % (36.0-66.0) % Eos # (Auto) (0-0.5) Absolute Lymphs (auto) (1.0-4.6) Absolute Monos (auto) (0.0-1.3) Lymphocytes % (24.0-44.0) % Monocytes % (0.0-12.0) % Eosinophils % (0.00-5.0) % Basophils % (0.0-0.4) % Absolute Granulocytes (1.4-6.9) Basophils # (0-0.4) PT 12.0 (9.95-12.35) SECONDS INR 1.06 (0.8-3.0) APTT 32.0 (25.3-37.0) SECONDS Puncture Site LEFT RADIAL pCO2 55 H (35-45) mmHg pO2 79 (75-100) mmHg Base Excess -0.3 (-2.0-2.0) O2 Saturation 92.7 L (94-100) g/dF ABG pH 7.30 L (7.35-7.45) ABG HCO3 27.1 (22-28) ABG O2 Sat (Measured) 95.7 (95-100) % Charlie Test YES A-a Gradient 80 a/A Ratio 0.50 Hemoglobin 12.8 Carboxyhemoglobin 2.8 (0.0-6.9) % THgb Methemoglobin 0.3 L (1.4-1.5) % Potassium 4.4 (3.5-5.1) Temperature 37.0 C POC O2 Flow Rate 32 % Sodium (137-145) mmol/L Chloride (98-107) mmol/L Carbon Dioxide (22-30) mmol/L Anion Gap (5-15) MEQ/L BUN (7-17) mg/dL Creatinine (0.52-1.04) mg/dL Estimated GFR ML/MIN Glucose (74-106) mg/dL Lactic Acid (0.4-2.0) Calcium (8.4-10.2) mg/dL Total Bilirubin (0.2-1.3) mg/dL AST (14-36) U/L ALT (0-35) U/L Alkaline Phosphatase (38-126) U/L Troponin I 1.150 H* (0.000-0.034) ng/mL Serum Total Protein (6.3-8.2) g/dL Albumin (3.5-5.0) g/dL Urine Color (YELLOW) Urine Appearance (CLEAR) Urine pH (5-6) Ur Specific [place] (1.005-1.025) Urine Protein (Negative) Urine Ketones (NEGATIVE) Urine Blood (0-5) Camron/ul Urine Nitrite (NEGATIVE) Urine Bilirubin (NEGATIVE) Urine Urobilinogen (0-1) mg/dL Ur Leukocyte Esterase (NEGATIVE) Urine WBC (Auto) (0-5) /HPF Urine RBC (Auto) (0-2) /HPF U Epithel Cells (Auto) (FEW) /HPF Urine Bacteria (Auto) (NEGATIVE) /HPF Urine Mucus (Auto) (NEGATIVE) /HPF Urine Culture Reflexed (NO) Urine Glucose (NEGATIVE) mg/dL Urine Opiates Level (NEGATIVE) Ur Methadone (NEGATIVE) Urine Barbiturates (NEGATIVE) Ur Phencyclidine (PCP) (NEGATIVE) Urine Amphetamine (NEGATIVE) U Benzodiazepine Level (NEGATIVE) Urine Cocaine (NEGATIVE) Urine Marijuana (THC) (NEGATIVE) Ethyl Alcohol (0-10) mg/dL 03/29/20 03/29/20 03/29/20 Range/Units 16:45 16:45 15:47 WBC 5.9 (4.0-10.5) K/mm3 RBC 5.25 (4.1-5.4) M/mm3 Hgb 13.4 (12.0-16.0) gm/dl Hct 43.3 (35-47) % MCV 82.5 (78-100) fl MCH 25.5 L (26-32) pg MCHC 30.9 L (32-36) g/dl RDW 17.4 H (11.5-14.0) % Plt Count 188 (150-450) K/mm3 MPV 11.4 H (7.5-11.0) fl Gran % 89.2 H (36.0-66.0) % Eos # (Auto) 0.01 (0-0.5) Absolute Lymphs (auto) 0.45 L (1.0-4.6) Absolute Monos (auto) 0.16 (0.0-1.3) Lymphocytes % 7.7 L (24.0-44.0) % Monocytes % 2.7 (0.0-12.0) % Eosinophils % 0.2 (0.00-5.0) % Basophils % 0.2 (0.0-0.4) % Absolute Granulocytes 5.23 (1.4-6.9) Basophils # 0.01 (0-0.4) PT (9.95-12.35) SECONDS INR (0.8-3.0) APTT (25.3-37.0) SECONDS Puncture Site pCO2 (35-45) mmHg pO2 (75-100) mmHg Base Excess (-2.0-2.0) O2 Saturation (94-100) g/dF ABG pH (7.35-7.45) ABG HCO3 (22-28) ABG O2 Sat (Measured) (95-100) % Charlie Test A-a Gradient a/A Ratio Hemoglobin Carboxyhemoglobin (0.0-6.9) % THgb Methemoglobin (1.4-1.5) % Potassium 4.8 (3.5-5.1) Temperature C POC O2 Flow Rate % Sodium 138 (137-145) mmol/L Chloride 103 (98-107) mmol/L Carbon Dioxide 27 (22-30) mmol/L Anion Gap 12.1 (5-15) MEQ/L BUN 30 H (7-17) mg/dL Creatinine 1.16 H (0.52-1.04) mg/dL Estimated GFR 49.7 ML/MIN Glucose 142 H (74-106) mg/dL Lactic Acid 0.7 (0.4-2.0) Calcium 9.2 (8.4-10.2) mg/dL Total Bilirubin 0.50 (0.2-1.3) mg/dL AST 31 (14-36) U/L ALT 20 (0-35) U/L Alkaline Phosphatase 119 (38-126) U/L Troponin I (0.000-0.034) ng/mL Serum Total Protein 7.8 (6.3-8.2) g/dL Albumin 3.9 (3.5-5.0) g/dL Urine Color (YELLOW) Urine Appearance (CLEAR) Urine pH (5-6) Ur Specific [place] (1.005-1.025) Urine Protein (Negative) Urine Ketones (NEGATIVE) Urine Blood (0-5) Camron/ul Urine Nitrite (NEGATIVE) Urine Bilirubin (NEGATIVE) Urine Urobilinogen (0-1) mg/dL Ur Leukocyte Esterase (NEGATIVE) Urine WBC (Auto) (0-5) /HPF Urine RBC (Auto) (0-2) /HPF U Epithel Cells (Auto) (FEW) /HPF Urine Bacteria (Auto) (NEGATIVE) /HPF Urine Mucus (Auto) (NEGATIVE) /HPF Urine Culture Reflexed (NO) Urine Glucose (NEGATIVE) mg/dL Urine Opiates Level (NEGATIVE) Ur Methadone (NEGATIVE) Urine Barbiturates (NEGATIVE) Ur Phencyclidine (PCP) (NEGATIVE) Urine Amphetamine (NEGATIVE) U Benzodiazepine Level (NEGATIVE) Urine Cocaine (NEGATIVE) Urine Marijuana (THC) (NEGATIVE) Ethyl Alcohol < 10 (0-10) mg/dL 03/29/20 Range/Units 15:47 WBC (4.0-10.5) K/mm3 RBC (4.1-5.4) M/mm3 Hgb (12.0-16.0) gm/dl Hct (35-47) % MCV (78-100) fl MCH (26-32) pg MCHC (32-36) g/dl RDW (11.5-14.0) % Plt Count (150-450) K/mm3 MPV (7.5-11.0) fl Gran % (36.0-66.0) % Eos # (Auto) (0-0.5) Absolute Lymphs (auto) (1.0-4.6) Absolute Monos (auto) (0.0-1.3) Lymphocytes % (24.0-44.0) % Monocytes % (0.0-12.0) % Eosinophils % (0.00-5.0) % Basophils % (0.0-0.4) % Absolute Granulocytes (1.4-6.9) Basophils # (0-0.4) PT (9.95-12.35) SECONDS INR (0.8-3.0) APTT (25.3-37.0) SECONDS Puncture Site RIGHT RADIAL pCO2 54 H (35-45) mmHg pO2 73 L (75-100) mmHg Base Excess 0.0 (-2.0-2.0) O2 Saturation 91.1 L (94-100) g/dF ABG pH 7.31 L (7.35-7.45) ABG HCO3 27.2 (22-28) ABG O2 Sat (Measured) 95.0 (95-100) % Charlie Test YES A-a Gradient 88 a/A Ratio 0.45 Hemoglobin 13.4 Carboxyhemoglobin 3.6 (0.0-6.9) % THgb Methemoglobin 0.5 L (1.4-1.5) % Potassium 4.6 (3.5-5.1) Temperature 37.0 C POC O2 Flow Rate 32 % Sodium (137-145) mmol/L Chloride (98-107) mmol/L Carbon Dioxide (22-30) mmol/L Anion Gap (5-15) MEQ/L BUN (7-17) mg/dL Creatinine (0.52-1.04) mg/dL Estimated GFR ML/MIN Glucose (74-106) mg/dL Lactic Acid (0.4-2.0) Calcium (8.4-10.2) mg/dL Total Bilirubin (0.2-1.3) mg/dL AST (14-36) U/L ALT (0-35) U/L Alkaline Phosphatase (38-126) U/L Troponin I (0.000-0.034) ng/mL Serum Total Protein (6.3-8.2) g/dL Albumin (3.5-5.0) g/dL Urine Color (YELLOW) Urine Appearance (CLEAR) Urine pH (5-6) Ur Specific Schroeder (1.005-1.025) Urine Protein (Negative) Urine Ketones (NEGATIVE) Urine Blood (0-5) Camron/ul Urine Nitrite (NEGATIVE) Urine Bilirubin (NEGATIVE) Urine Urobilinogen (0-1) mg/dL Ur Leukocyte Esterase (NEGATIVE) Urine WBC (Auto) (0-5) /HPF Urine RBC (Auto) (0-2) /HPF U Epithel Cells (Auto) (FEW) /HPF Urine Bacteria (Auto) (NEGATIVE) /HPF Urine Mucus (Auto) (NEGATIVE) /HPF Urine Culture Reflexed (NO) Urine Glucose (NEGATIVE) mg/dL Urine Opiates Level (NEGATIVE) Ur Methadone (NEGATIVE) Urine Barbiturates (NEGATIVE) Ur Phencyclidine (PCP) (NEGATIVE) Urine Amphetamine (NEGATIVE) U Benzodiazepine Level (NEGATIVE) Urine Cocaine (NEGATIVE) Urine Marijuana (THC) (NEGATIVE) Ethyl Alcohol (0-10) mg/dL - Progress Progress: improved Progress Note: 03/29/20 20:01 Regional [facility] availability of Neurology per ER physicianbelinda called. Spoke w police captain regional account director who wanted pt taken care of by hospitalist. Pt accepted by Dr. Bhandari, Hospitalist. 03/29/20 20:09 Pt arrived per EMS w N/V. Arrived lethargic w sats in high 70's which responded to 4L O2 NC. Pt arouseable upon arrival w good airway but immediately went to sleep when not stimulated. EKG w NSR/old inferior NE. No real response to Narcan 0.4mg IV. Pt rushed immediately for head CT which was read as neg per Dr. Short. CXR w possible L perihilar infiltrate, but subsequent CT of chest neg per Dr. Short. Pt w elevated BP which was treated w Labetalol 20mg IV x2. Initial troponin elevated at 1.5 w 2hr troponin elevated to 2.0. Pt's lethargy subsequently treated w 0.4 IV Narcan x3 wo improvement. During entire stay, pt had good airway w Sats in high 90's. 03/29/20 21:06 Pt became awake and alert after transferring to ambulance. She requested pain meds before transfer which was denied. - Departure Departure Disposition: Transfer Clinical Impression: NSTEMI (non-ST elevated myocardial infarction), Change in mental status Condition: Stable Critical Care Time: Yes Critical Care Time(excluding separately billable procedures): Critical 75-104 mins Referrals: JOON RABAGO MD [Primary Care Provider] -
[2020-03-29] MEDS ORDERED: Narcan 0.4 MG/ML IV ONE ×4 (18:28→18:40)
[2020-03-29 19:25] VITALS: O2SAT 96
[2020-03-29 20:39] VITALS: BP 160/91; PULSE 80
--- NOTE | 2020-03-30 08:36 | XRAY ---
Indication: Dyspnea and weakness. Multiple contiguous axial images obtained through the chest without contrast as ordered. Comparison: January 03, 2019 Study slightly degraded by respiration artifact. Lungs again demonstrate scattered bilateral subsegmental atelectasis/scarring again greatest in the left upper lobe. Stable focal left fissure thickening and 5 mm left lower lobe noncalcified nodule (image 35). No new pulmonary mass, infiltrate, consolidation, or effusion. Heart is borderline enlarged again demonstrating CABG surgery. Aorta is minimally arteriosclerotic without aneurysm. No pathologic retroperitoneal lymphadenopathy. New small hiatal hernia. Bony thorax intact again with minimal degenerative changes throughout the spine, sternotomy wires, and bilateral shoulder arthroplasty. Limited upper abdomen again demonstrates 12.6 cm splenomegaly, left upper renal cortical thinning/scarring, and cholecystectomy clips. Impression: 1. Borderline cardiomegaly. No acute cardiopulmonary abnormalities on this noncontrast exam. 2. New small hiatal hernia. 3. Stable scattered subsegmental atelectasis/scarring, left fissure thickening, benign appearing left lower lobe noncalcified micronodule, splenomegaly, left renal cortical thinning/scarring, and chronic bony findings.
== END 2020-03-29 21:00 | disposition short-term general hospital (02) ==
LOC: ED 15:23
DX: I21.3 ST elevation (STEMI) myocardial infarction of unspecified site (principal); Z79.899 Other long term (current) drug therapy; R41.82 Altered mental status, unspecified; R41.0 Disorientation, unspecified; I10 Essential (primary) hypertension; E78.00 Pure hypercholesterolemia, unspecified; F41.9 Anxiety disorder, unspecified; F32.9 Major depressive disorder, single episode, unspecified
CPT/HCPCS: 51702; 70450; 71250; 80053; 80307; 81001; 82375; 82803; 83605; 84484; 85025; 85610; 85730; 87086; 93005; 93041; 96374; 96375; 96376; 99291; 99292; G0480; 36000; 36415; 36600; 71045; 99285; J2310